=== PATIENT | male | born 1945 | race Caucasian/White ===

== ENCOUNTER 2017-06-26 10:08 | Inpatient (IN) | payer MEDICARE, MEDICAID ==
[2017-06-26] VITALS (10 sets, daily range): BP systolic 102–154; BP diastolic 51–70; PULSE 70–81; RESP 16–18; TEMP 97.7–98.2; O2SAT 78–100
[~2017-06-26] VITALS: Ht 170.2 cm; Wt 93.5 kg
[2017-06-26] MEDS ORDERED: ONDANSETRON HCL 4 MG/2 ML VIAL IVP ONE (11:00)
[2017-06-26] MEDS ORDERED: HYDROmorphone HCL PF 1 MG/ML VIAL IVS ONE (11:00)
[2017-06-26] MEDS ORDERED: SODIUM CHLORIDE 0.9% FLUSH 10 ML FLUSH IVF PRN (11:00)
--- NOTE | 2017-06-26 11:06 | PD ---
HPI Chief Complaint: Fall Time Seen by Provider: 10:29 Travel History International Travel<30 days: No Contact w/Intl Traveler<30days: No Traveled to known affect area: No History of Present Illness HPI The patient is a 71-year-old male who presents to the emergency department from [place], [place] for right hip pain. The patient states he was just discharged from [facility] yesterday after a 5 week hospitalization for leg pain. The patient was going down the stairs earlier today when he fell landing on his right hip. He complains of right hip pain with inability to ambulate. The pain starts in the right hip and radiates down the right leg to the right knee. He denies any loss of consciousness or head injury during the fall. He denies any neck pain, chest pain, or shortness of breath. The patient states his primary hospital at [facility], however, the patient states he apparently had no beds available for him. The patient states he has never been to [facility] in the past as the patient. He does not know all of his medications and does not have a medication list. Symptoms are moderate, slightly alleviated by 50 of fentanyl administered prior to arrival by EMS. [facility] Past Medical History Narrative Medical Hypertension, hyperlipidemia, atrial fibrillation, chronic leg pain Atrial Fibrillation: Yes Hypertension: Yes Past Surgical History Narrative Surgical Gastric bypass, cholecystectomy, AICD placement Abdominal Surgery: Yes (gastric bypass 1992) Appendectomy: Yes Cholecystectomy: Yes Social History Alcohol Use: No Tobacco Use: No Substance Use: No Allergies-Medications (Allergen,Severity, Reaction): Coded Allergies: morphine (Verified Allergy, Unknown, 06/26/17) Physical Exam Narrative GENERAL: Awake, alert, 71-year-old male who appears his stated age but is in no acute respiratory distress. SKIN: Focused skin assessment warm/dry. HEAD: Atraumatic. Normocephalic. EYES: No injection or drainage. ENT: No nasal bleeding or discharge. Mucous membranes pink and moist. NECK: Trachea midline. No JVD. CARDIOVASCULAR: Regular rate and rhythm. No murmur appreciated. AICD in place left chest wall. RESPIRATORY: No accessory muscle use. Clear to auscultation. Breath sounds equal bilaterally. GASTROINTESTINAL: Abdomen soft, obese with large pannus. Well-healed midline scar. MUSCULOSKELETAL: The right lower extremity is shortened and externally rotated. Tender to palpation of the right lateral hip. Mild edema bilaterally. Patient is able to move the right foot. NEUROLOGICAL: Awake and alert. No obvious cranial nerve deficits. Motor grossly within normal limits. Normal speech. Nonfocal. Sensation is intact right lower extremity. PSYCHIATRIC: Appropriate mood and affect; insight and judgment normal. Data Data Last Documented VS Vital Signs Date Time Temp Pulse Resp B/P (MAP) Pulse Ox O2 Delivery O2 Flow Rate FiO2 06/26/17 11:55 75 16 154/67 (96) 94 Nasal Cannula 2.00 06/26/17 10:38 97.7 Orders Orders Electrocardiogram (06/26/17 10:46) Complete Blood Count With Diff (06/26/17 10:46) Comprehensive Metabolic Panel (06/26/17 10:46) Prothrombin Time / Inr (Pt) (06/26/17 10:46) Act Partial Throm Time (Ptt) (06/26/17 10:46) Urinalysis - C+S If Indicated (06/26/17 10:46) Type And Screen (06/26/17 10:46) Chest, Single Ap (06/26/17 10:46) Femur (Ap & Lat/2vws) (06/26/17 10:46) Pelvis, Ap Only (Routine) (06/26/17 10:46) Iv Access Insert/Monitor (06/26/17 10:46) Oximetry (06/26/17 10:46) Ice/Cold Pack (06/26/17 10:46) Ecg Monitoring (06/26/17 10:46) Ondansetron Inj (Zofran Inj) (06/26/17 11:00) Sodium Chloride 0.9% Flush (Ns Flush) (06/26/17 11:00) Hydromorphone Pf Inj (Dilaudid Pf Inj) (06/26/17 11:00) Hydromorphone Pf Inj (Dilaudid Pf Inj) (06/26/17 11:45) Admit Order (Ed Use Only) (06/26/17 13:26) Labs Laboratory Tests Test 06/26/17 10:54 White Blood Count 10.7 TH/MM3 Red Blood Count 3.76 MIL/MM3 Hemoglobin 9.6 GM/DL Hematocrit 30.5 % Mean Corpuscular Volume 81.1 FL Mean Corpuscular Hemoglobin 25.6 PG Mean Corpuscular Hemoglobin Concent 31.5 % Red Cell Distribution Width 20.5 % Platelet Count 341 TH/MM3 Mean Platelet Volume 7.0 FL Neutrophils (%) (Auto) 91.4 % Lymphocytes (%) (Auto) 3.5 % Monocytes (%) (Auto) 4.4 % Eosinophils (%) (Auto) 0.1 % Basophils (%) (Auto) 0.6 % Neutrophils # (Auto) 9.8 TH/MM3 Lymphocytes # (Auto) 0.4 TH/MM3 Monocytes # (Auto) 0.5 TH/MM3 Eosinophils # (Auto) 0.0 TH/MM3 Basophils # (Auto) 0.1 TH/MM3 CBC Comment DIFF FINAL Differential Comment Prothrombin Time 15.5 SEC Prothromb Time International Ratio 1.5 RATIO Activated Partial Thromboplast Time 31.0 SEC Blood Urea Nitrogen 23 MG/DL Creatinine 0.76 MG/DL Random Glucose 65 MG/DL Total Protein 7.5 GM/DL Albumin 3.0 GM/DL Calcium Level 9.9 MG/DL Alkaline Phosphatase 132 U/L Aspartate Amino Transf (AST/SGOT) 60 U/L Alanine Aminotransferase (ALT/SGPT) 24 U/L Total Bilirubin 1.2 MG/DL Sodium Level 140 MEQ/L Potassium Level 4.3 MEQ/L Chloride Level 102 MEQ/L Carbon Dioxide Level 29.5 MEQ/L Anion Gap 9 MEQ/L Estimat Glomerular Filtration Rate 101 ML/MIN MDM Medical Decision Making Medical Screen Exam Complete: Yes Emergency Medical Condition: Yes Medical Record Reviewed: Yes Interpretation(s) EKG reveals electronic ventricular pacemaker with a rate of 78. No further analysis performed. Last Impressions Pelvis X-Ray 06/26/171045 Signed Impressions: Service Date/Time: June 11:12 - CONCLUSION: Acute oblique fracture the proximal femoral shaft on the right. Claudio Klein MD Femur X-Ray 06/26/171045 Signed Impressions: Service Date/Time: June 11:14 - CONCLUSION: Oblique fracture through the proximal right femoral shaft. Claudio Klein MD Chest X-Ray 06/26/171045 Signed Impressions: Service Date/Time: June 11:24 - CONCLUSION: 1. No significant pneumothorax or effusion. 2. Cardiomegaly with slight positive fluid balance. 3. Minimal atelectasis in the left midlung zone. 4. Suspect old inferior right rib fracture. Freddie Yuen MD Laboratory Tests Test 06/26/17 10:54 White Blood Count 10.7 TH/MM3 Red Blood Count 3.76 MIL/MM3 Hemoglobin 9.6 GM/DL Hematocrit 30.5 % Mean Corpuscular Volume 81.1 FL Mean Corpuscular Hemoglobin 25.6 PG Mean Corpuscular Hemoglobin Concent 31.5 % Red Cell Distribution Width 20.5 % Platelet Count 341 TH/MM3 Mean Platelet Volume 7.0 FL Neutrophils (%) (Auto) 91.4 % Lymphocytes (%) (Auto) 3.5 % Monocytes (%) (Auto) 4.4 % Eosinophils (%) (Auto) 0.1 % Basophils (%) (Auto) 0.6 % Neutrophils # (Auto) 9.8 TH/MM3 Lymphocytes # (Auto) 0.4 TH/MM3 Monocytes # (Auto) 0.5 TH/MM3 Eosinophils # (Auto) 0.0 TH/MM3 Basophils # (Auto) 0.1 TH/MM3 CBC Comment DIFF FINAL Differential Comment Prothrombin Time 15.5 SEC Prothromb Time International Ratio 1.5 RATIO Activated Partial Thromboplast Time 31.0 SEC Blood Urea Nitrogen 23 MG/DL Creatinine 0.76 MG/DL Random Glucose 65 MG/DL Total Protein 7.5 GM/DL Albumin 3.0 GM/DL Calcium Level 9.9 MG/DL Alkaline Phosphatase 132 U/L Aspartate Amino Transf (AST/SGOT) 60 U/L Alanine Aminotransferase (ALT/SGPT) 24 U/L Total Bilirubin 1.2 MG/DL Sodium Level 140 MEQ/L Potassium Level 4.3 MEQ/L Chloride Level 102 MEQ/L Carbon Dioxide Level 29.5 MEQ/L Anion Gap 9 MEQ/L Estimat Glomerular Filtration Rate 101 ML/MIN Differential Diagnosis Differential diagnosis includes intertrochanteric fracture, femoral neck fracture, pelvic fracture, femur fracture, dislocation, mechanical fall. Narrative Course IV was established, labs are drawn and sent, and the patient was placed on cardiac telemetry monitoring and continuous pulse oximetry monitoring.X-ray of the chest and pelvis with right femur x-ray were ordered. The patient was administered Dilaudid 0.5 mg intravenously with Zofran and IV fluids. X-ray of the right femur reveals a proximal right femur fracture. A call was placed to the on-call hospitalist service for admission. A call was placed to the on- call orthopedic surgeon at 12:52 PM. The patient will be admitted. The patient 's last meal was at 7 AM. The patient is unsure if he took his blood thinner medication, Eliquis, today. I discussed the patient with orthopedics who agrees with admission to medical service, n.p.o. after midnight. Hold Eliquis. Physician Communication Physician Communication [facility]ist were paged for admission. Diagnosis Primary Impression: Closed right femoral fracture Qualified Codes: S72.91XA - Unspecified fracture of right femur, initial encounter for closed fracture Admitting Information Admitting Physician Requests: Admit Condition: Stable Mesfin Saleh MD Jun 26, 2017 11:06
[2017-06-26] MEDS ORDERED: HYDROmorphone HCL PF 0.5 MG/0.5 ML SYRINGE IV ONE (11:45)
[2017-06-26 12:04] LABS: AUTOMATED NEUTROPHIL # 9.8 TH/MM3 (1.8-7.7); BASOPHIL # 0.1 TH/MM3 (0-0.2); BASOPHIL % 0.6 % (0.0-2.0); EOSINOPHIL % 0.1 % (0.0-4.0); HEMATOCRIT 30.5 % (39.0-51.0); HEMOGLOBIN 9.6 GM/DL (13.0-17.0); LYMPH % 3.5 % (9.0-44.0); LYMPHOCYTE # 0.4 TH/MM3 (1.0-4.8); MEAN CELL VOLUME 81.1 FL (80.0-100.0); MEAN CORPUSCULAR HEMOGLOBIN 25.6 PG (27.0-34.0); MEAN CORPUSCULAR HGB CONC 31.5 % (32.0-36.0); MONO % 4.4 % (0.0-8.0); MONOCYTE # 0.5 TH/MM3 (0-0.9); NEUT % 91.4 % (16.0-70.0); PLATELET COUNT 341 TH/MM3 (150-450); RED BLOOD COUNT 3.76 MIL/MM3 (4.50-5.90); RED CELL DISTRIBUTION WIDTH 20.5 % (11.6-17.2); WHITE BLOOD COUNT 10.7 TH/MM3 (4.0-11.0)
--- NOTE | 2017-06-26 12:09 | RADRPT ---
EXAM DATE/TIME: 06/26/2017 11:12 [facility] COMPARISON: FEMUR RIGHT (AP & LAT/2VWS), June 26, 2017, 11:14. FINDINGS: There is a fracture of the proximal right femur below the trochanters. There is degenerative change a t the hip joints bilaterally with loss of joint space and marginal osteophyte seen at the femoral hea ds. The patient is status post vertebroplasty at L4 and L5. Compression deformities are seen at these levels. The bones are osteopenic. CONCLUSION: Acute oblique fracture the proximal femoral shaft on the right. Claudio Klein MD on June 26, 2017 at 12:01 Board Certified Radiologist. This report was verified electronically.
--- NOTE | 2017-06-26 12:11 | RADRPT ---
EXAM DATE/TIME: 06/26/2017 11:14 [facility] COMPARISON: No previous studies available for comparison. INDICATIONS : Pt fell this morning. Right lower extremity pain. MEDICAL HISTORY : None. SURGICAL HISTORY : Gastric bypass. pacemaker ENCOUNTER: Initial ACUITY: 1 day PAIN SCORE: 9/10 LOCATION: Right lower extremity FINDINGS: Two view examination of the right femur demonstrates an oblique fracture the proximal femoral shaft. The superior aspect of the fractures at the intertrochanteric region. There is degenerative change of the joint with narrowing of the joint space. The knee joint is aligned. There is a mild knee joint e ffusion. Bones are osteopenic. CONCLUSION: Oblique fracture through the proximal right femoral shaft. Claudio Klein MD on June 26, 2017 at 12:08 Board Certified Radiologist. This report was verified electronically.
[2017-06-26 12:12] LABS: INTERNATIONAL NORMALIZED RATIO 1.5 RATIO; PROTHROMBIN TIME - PATIENT 15.5 SEC (9.8-11.6)
[2017-06-26 12:17] LABS: ALT (GPT) 24 U/L (12-78)
--- NOTE | 2017-06-26 12:17 | RADRPT ---
EXAM DATE/TIME: 06/26/2017 11:24 [facility] COMPARISON: No previous studies available for comparison. INDICATIONS : Pt fell this morning. Right lower extremity pain. MEDICAL HISTORY : None. SURGICAL HISTORY : Gastric bypass. Pacemaker ENCOUNTER: Initial ACUITY: 1 day PAIN SCORE: 9/10 LOCATION: Right lower extremity FINDINGS: One mild diffuse interstitial prominence mild linear parenchymal opacity in the left midlung zone. No pneumothorax or significant effusions. Cardiac silhouette is enlarged and there is a multi-lead AICD device in place. There is cortical irregularity of an inferior right-sided rib with apparent periost eal reaction. Otherwise, no displaced fractures. CONCLUSION: 1. No significant pneumothorax or effusion. 2. Cardiomegaly with slight positive fluid balance. 3. Minimal atelectasis in the left midlung zone. 4. Suspect old inferior right rib fracture. Freddie Yuen MD on June 26, 2017 at 12:06 Board Certified Radiologist. This report was verified electronically.
[2017-06-26 12:19] LABS: ALKALINE PHOSPHATASE 132 U/L (45-117); TOTAL BILIRUBIN ADULT 1.2 MG/DL (0.2-1.0); TOTAL PROTEIN 7.5 GM/DL (6.4-8.2)
[2017-06-26 12:39] LABS: BICARBONATE 29.5 MEQ/L (21.0-32.0); BLOOD UREA NITROGEN 23 MG/DL (7-18); CALCIUM 9.9 MG/DL (8.5-10.1); CHLORIDE 102 MEQ/L (98-107); CREATININE 0.76 MG/DL (0.60-1.30); GLOMERULAR FILTRATION RATE 101 ML/MIN (>89); GLUCOSE,RANDOM 65 MG/DL (74-106); SODIUM (NA) 140 MEQ/L (136-145)
[2017-06-26 12:40] LABS: AST (GOT) 60 U/L (15-37)
[2017-06-26] MEDS ORDERED: ACETAMINOPHEN 325 MG TAB PO PRN ×2 (14:30)
[2017-06-26] MEDS ORDERED: SENNOSIDES 8.6 MG TAB PO PRN (14:30)
[2017-06-26] MEDS ORDERED: ONDANSETRON HCL 4 MG/2 ML VIAL IVP PRN (14:30)
[2017-06-26] MEDS ORDERED: MAGNESIUM HYDROXIDE SUSP 30 ML CUP PO PRN (14:30)
[2017-06-26] MEDS ORDERED: BISACODYL 10 MG SUPP RECTAL PRN (14:30)
[2017-06-26] MEDS ORDERED: SODIUM CHLORIDE 0.9% FLUSH 10 ML FLUSH IV FLUSH PRN (14:30)
[2017-06-26] MEDS ORDERED: NALOXONE HCL 0.4 MG/ML AMP IV PUSH PRN (14:30)
[2017-06-26] MEDS ORDERED: cloNIDine HCL 0.1 MG TAB PO PRN ×2 (14:30)
[2017-06-26] MEDS ORDERED: DEXTROSE 50% IN WATER 50 ML VIAL(D50) IV PUSH PRN (14:30)
[2017-06-26] MEDS ORDERED: oxyCODONE/ACETAMINOPHEN 5 MG/325 MG TAB PO PRN (14:30)
[2017-06-26] MEDS ORDERED: GLUCAGON 1 MG/ML VIAL OTHER PRN (14:30)
[2017-06-26] MEDS ORDERED: LACTULOSE SYRUP 20 GM/30 ML CUP PO PRN (14:30)
[2017-06-26] MEDS ORDERED: oxyCODONE/ACETAMINOPHEN 10 MG/325 MG TAB PO PRN (14:30)
[2017-06-26] MEDS ORDERED: METOCLOPRAMIDE HCL 10 MG/2 ML VIAL IV PUSH PRN (14:30)
[2017-06-26] MEDS ORDERED: HYDROmorphone HCL PF 2 MG/ML VIAL IV PUSH PRN ×2 (14:45→15:00)
--- NOTE | 2017-06-26 14:45 | HHI.HP ---
[facility] Unknown Admission Diagnosis Proximal right femur fracture Diagnoses: (1) Hypertension Diagnosis: Secondary (2) H/O gastric bypass Diagnosis: Secondary (3) Hyperlipidemia Diagnosis: Secondary (4) Atrial fibrillation Diagnosis: Secondary (5) Closed right femoral fracture Diagnosis: Principal Chief Complaint: FALL Travel History International Travel<30 Days: No Contact w/Intl Traveler <30 Da: No Traveled to Known Affected Are: No History of Present Illness Patient is a 71-year-old male who was initially brought to the emergency department from [place] in [facility] for a right hip pain. Patient was noted to be discharged from possibly a rehab center in [facility] where he spent 5 weeks due to leg weakness. Patient was going down the stairs earlier today when he fell off the landing and landed on his right hip. Complains of right hip pain and inability to ambulate. Has pain in the right hip that goes down the right leg to the right knee patient denied any issue of loss of consciousness or head injury during the fall. Denies any neck pain he denies any chest pain or any shortness of breath denies any abdominal pain patient states that he goes to [facility] but has not been there in a while. Patient states she has never been a [facility] ever patient does not know any of his medications does not have a medication list has some pain. Had been medicated by EMS prior to arrival She is a very poor historian Review of Systems ROS Limitations: Altered Mental Status, Poor Historian Constitutional: COMPLAINS OF: Fatigue, DENIES: Diaphoretic episodes, Fever, Weight gain, Weight loss, Chills, Dizziness, Change in appetite, Night Sweats Endocrine: DENIES: Heat/cold intolerance, Polydipsia, Polyuria, Polyphagia Eyes: DENIES: Blurred vision, Diplopia, Eye inflammation, Eye pain, Vision loss , Photosensitivity, Double Vision Ears, nose, mouth, throat: DENIES: Tinnitus, Hearing loss, Vertigo, Nasal discharge, Oral lesions, Throat pain, Hoarseness, Ear Pain, Running Nose, Epistaxis, Sinus Pain, Toothache, Odynophagia Respiratory: DENIES: Apneas, Cough, Snoring, Wheezing, Hemoptysis, Sputum production, Shortness of breath Cardiovascular: DENIES: Chest pain, Palpitations, Syncope, Dyspnea on Exertion , PND, Lower Extremity Edema, Orthopnea, Claudication Gastrointestinal: DENIES: Abdominal pain, Black stools, Bloody stools, Constipation, Diarrhea, Nausea, Vomiting, Difficulty Swallowing, Anorexia Musculoskeletal: COMPLAINS OF: Joint pain, Muscle aches, Joint Swelling, DENIES : Stiffness, Back pain, Neck pain Integumentary: DENIES: Abnormal pigmentation, Nail changes, Pruritus, Rash Hematologic/lymphatic: DENIES: Bruising, Lymphadenopathy Immunologic/allergic: DENIES: Urticaria Neurologic: COMPLAINS OF: Abnormal gait, Localized weakness, DENIES: Headache, Paresthesias, Seizures, Speech Problems, Tremor Psychiatric: COMPLAINS OF: Confusion, DENIES: Anxiety, Mood changes, Depression , Hallucinations, Agitation, Suicidal Ideation, Homicidal Ideation, Delusions Except as stated in HPI: all other systems reviewed are Neg Past Family Social History Past Medical History Hypertension Hyperlipidemia Atrial fibrillation Chronic leg pain and weakness Past Surgical History Gastric bypass surgery Cholecystectomy Appendectomy AICD placement Reported Medications Unknown unobtainable from patient Allergies: Coded Allergies: morphine (Verified Allergy, Unknown, 06/26/17) Active Ordered Medications Current Medications Ondansetron HCl (Zofran Inj) 4 mg ONCE ONCE IVP Last administered on at 11:53; Start 06/26/17 at 11:00; Stop 06/26/17 at 11:01; Status DC Sodium Chloride (NS Flush) 2 ml UNSCH PRN IVF FLUSH AFTER USING IV ACCESS; Start 06/26/17 at 11:00 Hydromorphone HCl (Dilaudid Pf Inj) 0.5 mg ONCE ONCE IVS ; Start 06/26/17 at 11 :00; Stop 06/26/17 at 11:01; Status DC Hydromorphone HCl (Dilaudid Pf Inj) 0.5 mg ONCE ONCE IV Last administered on at 11:54; Start 06/26/17 at 11:45; Stop 06/26/17 at 11:46; Status DC Family History Does not know any of his family history Social History Denies any tobacco, alcohol, or illicits Physical Exam Vital Signs Vital Signs Date Time Temp Pulse Resp B/P (MAP) Pulse Ox O2 Delivery O2 Flow Rate FiO2 06/26/17 14:21 16 99 Non-Rebreather 11.00 06/26/17 14:20 73 16 78 Nasal Cannula 4.00 06/26/17 14:00 70 16 116/58 (77) 95 Nasal Cannula 4.00 06/26/17 11:55 75 16 154/67 (96) 94 Nasal Cannula 2.00 06/26/17 10:40 73 17 97 Nasal Cannula 2.00 06/26/17 10:38 97.7 81 16 150/70 (96) 97 Physical Exam GENERAL: This is a well-nourished, well-developed patient, in no apparent distress. SKIN: No rashes, ecchymoses or lesions. Cool and dry. Has some small wounds on his right hand HEAD: Atraumatic. Normocephalic. No temporal or scalp tenderness. EYES: Pupils equal round and reactive. Extraocular motions intact. No scleral icterus. No injection or drainage. ENT: Nose without bleeding, purulent drainage or septal hematoma. Throat without erythema, tonsillar hypertrophy or exudate. Uvula midline. Airway patent. NECK: Trachea midline. No JVD or lymphadenopathy. Supple, nontender, no meningeal signs. CARDIOVASCULAR: IRRegular rate and rhythm without murmurs, gallops, or rubs. S1 -S2 no S3 or S4 RESPIRATORY: Clear to auscultation. Breath sounds equal bilaterally. No wheezes , rales, or rhonchi. Coarse breath sounds bilaterally GASTROINTESTINAL: Abdomen soft, non-tender, nondistended. No hepato-splenomegaly , or palpable masses. No guarding. Morbid obesity MUSCULOSKELETAL: Extremities without clubbing, cyanosis, or edema. No joint tenderness, effusion, or edema noted. No calf tenderness. Negative Homans sign bilaterally. Right hip tenderness NEUROLOGICAL: Awake and alert. Cranial nerves II through XII intact. Motor and sensory grossly within normal limits. 4 out of 5 muscle strength in all muscle groups. Normal speech. Right hip tenderness with decreased range of motion Insight and judgment is limited Mood and behavior is abnormal Laboratory Laboratory Tests Test 06/26/17 10:54 White Blood Count 10.7 Red Blood Count 3.76 Hemoglobin 9.6 Hematocrit 30.5 Mean Corpuscular Volume 81.1 Mean Corpuscular Hemoglobin 25.6 Mean Corpuscular Hemoglobin Concent 31.5 Red Cell Distribution Width 20.5 Platelet Count 341 Mean Platelet Volume 7.0 Neutrophils (%) (Auto) 91.4 Lymphocytes (%) (Auto) 3.5 Monocytes (%) (Auto) 4.4 Eosinophils (%) (Auto) 0.1 Basophils (%) (Auto) 0.6 Neutrophils # (Auto) 9.8 Lymphocytes # (Auto) 0.4 Monocytes # (Auto) 0.5 Eosinophils # (Auto) 0.0 Basophils # (Auto) 0.1 CBC Comment DIFF FINAL Differential Comment Prothrombin Time 15.5 Prothromb Time International Ratio 1.5 Activated Partial Thromboplast Time 31.0 Blood Urea Nitrogen 23 Creatinine 0.76 Random Glucose 65 Total Protein 7.5 Albumin 3.0 Calcium Level 9.9 Alkaline Phosphatase 132 Aspartate Amino Transf (AST/SGOT) 60 Alanine Aminotransferase (ALT/SGPT) 24 Total Bilirubin 1.2 Sodium Level 140 Potassium Level 4.3 Chloride Level 102 Carbon Dioxide Level 29.5 Anion Gap 9 Estimat Glomerular Filtration Rate 101 Result Diagram: 06/26/17 1054 06/26/17 1054 Imaging Last Impressions Pelvis X-Ray 06/26/17 1046 Signed Impressions: Service Date/Time: June 11:12 - CONCLUSION: Acute oblique fracture the proximal femoral shaft on the right. Claudio Klein MD Femur X-Ray 06/26/17 1046 Signed Impressions: Service Date/Time: June 11:14 - CONCLUSION: Oblique fracture through the proximal right femoral shaft. Claudio Klein MD Chest X-Ray 06/26/17 1046 Signed Impressions: Service Date/Time: June 11:24 - CONCLUSION: 1. No significant pneumothorax or effusion. 2. Cardiomegaly with slight positive fluid balance. 3. Minimal atelectasis in the left midlung zone. 4. Suspect old inferior right rib fracture. MD Girma Leei VTE Risk Assessment Caprini VTE Risk Assessment: Mod/High Risk (score >= 2) Caprini Risk Assessment Model Point Value = 1 Point Value = 2 Point Value = 3 Point Value = 5 Age 41-60 Minor surgery BMI > 25 kg/m2 Swollen legs Varicose veins or History of unexplained or recurrent spontaneous Oral contraceptives or hormone replacement Sepsis (< 1 month) Serious lung disease, including pneumonia (< 1 month) Abnormal pulmonary function Acute myocardial infarction Congestive heart failure (< 1 month) History of inflammatory bowel disease Medical patient at bed rest Age 61-74 Arthroscopic surgery Major open surgery (> 45 min) Laparoscopic surgery (> 45 min) Malignancy Confined to bed (> 72 hours) Immobilizing plaster cast Central venous access Age >= 75 History of VTE Family history of VTE Factor V Leiden Prothrombin [id number] Lupus anticoagulant Anticardiolipin antibodies Elevated serum homocysteine Heparin-induced thrombocytopenia Other congenital or acquired thrombophilia Stroke (< 1 month) Elective arthroplasty Hip, pelvis, or leg fracture Acute spinal cord injury (< 1 month) Prophylaxis Regimen Total Risk Factor Score Risk Level Prophylaxis Regimen 0-1 Low Early ambulation 2 Moderate Order ONE of the following: *Sequential Compression Device (SCD) *Heparin 5000 units SQ BID 3-4 Higher Order ONE of the following medications: *Heparin 5000 units SQ TID *Enoxaparin/Lovenox 40 mg SQ daily (WT < 150 kg, CrCl > 30 mL/min) *Enoxaparin/Lovenox 30 mg SQ daily (WT < 150 kg, CrCl > 10-29 mL/min) *Enoxaparin/Lovenox 30 mg SQ BID (WT < 150 kg, CrCl > 30 mL/min) AND/OR *Sequential Compression Device (SCD) 5 or more Highest Order ONE of the following medications: *Heparin 5000 units SQ TID (Preferred with Epidurals) *Enoxaparin/Lovenox 40 mg SQ daily (WT < 150 kg, CrCl > 30 mL/min) *Enoxaparin/Lovenox 30 mg SQ daily (WT < 150 kg, CrCl > 10-29 mL/min) *Enoxaparin/Lovenox 30 mg SQ BID (WT < 150 kg, CrCl > 30 mL/min) AND *Sequential Compression Device (SCD) Assessment and Plan Problem List: (1) H/O gastric bypass ICD Code: Z98.84 - Bariatric surgery status (2) Hypertension ICD Code: I10 - Essential (primary) hypertension (3) Atrial fibrillation ICD Code: I48.91 - Unspecified atrial fibrillation (4) Closed right femoral fracture ICD Code: S72.91XA - Unspecified fracture of right femur, initial encounter for closed fracture Status: Acute (5) Hyperlipidemia ICD Code: E78.5 - Hyperlipidemia, unspecified Assessment and Plan Right hip fracture. Will consult orthopedic surgery. We will keep him n.p.o. after midnight. Will obviously stop any care home novel anticoagulation Pain control SCDs and ALFA hose We will need physical therapy and Occupational Therapy once surgery is complete Hypertension does not know his medication will make Catapres available Hyperlipidemia does not know his medications will try to obtain History of osteoarthritis and weakness will need physical therapy and occupational therapy after surgery Atrial fibrillation will get an echo and trend troponins Chronic leg pain History of gastric bypass and cholecystectomy and AICD placement DVT prophylaxis with SCDs and ALFA hose GI prophylaxis with Pepcid We will get an echo cardiogram and trend troponins Anemia we will monitor labs Coagulopathy will monitor A.m. labs Consult case management for discharge planning Code Status Full code Discussed Condition With Emergency room physician and emergency room nurse and patient Patient is a very poor historian Physician Certification 2 Midnight Certification Type: Admission for Inpatient Services Order for Inpatient Services The services are ordered in accordance with Medicare regulations or non- Medicare payer requirements, as applicable. In the case of services not specified as inpatient-only, they are appropriately provided as inpatient services in accordance with the 2-midnight benchmark. Estimated LOS (days): 3 days is the estimated time the patient will need to remain in the hospital, assuming treatment plan goals are met and no additional complications. Post-Hospital Plan: Not yet determined Problem Qualifiers (1) Closed right femoral fracture: Qualified Codes: S72.91XA - Unspecified fracture of right femur, initial encounter for closed fracture Michele Gilliam DO Jun 26, 2017 14:45
[2017-06-26 16:30] LABS: TROPONIN I 0.09 NG/ML (0.02-0.05)
[2017-06-26] MEDS: INSULIN ASPART SUPPLEMENTAL SCALE SQ SCH ×2 (16:42→21:00)
[2017-06-26] MEDS: PANTOPRAZOLE SODIUM 40 MG VIAL IV PUSH SCH (18:03)
[2017-06-26] MEDS: DOCUSATE SODIUM 50 MG/SENNA 8.6 MG TAB PO SCH (21:00)
[2017-06-26] MEDS: SODIUM CHLORIDE 0.9% FLUSH 10 ML FLUSH IV FLUSH SCH (21:00)
[2017-06-26 22:24] LABS: TROPONIN I 0.14 NG/ML (0.02-0.05)
[2017-06-27] VITALS (13 sets, daily range): BP systolic 96–113; BP diastolic 50–71; PULSE 70–76; RESP 16–19; TEMP 97.4–98.4; O2SAT 93–100
[2017-06-27] MEDS ORDERED: CHLORHEXIDINE GLUCONATE 2 % 1 PACK (2 CLOTHS)(extra cloths) TOPICAL PRN (00:15)
[2017-06-27] MEDS: CHLORHEXIDINE GLUCONATE 2 % 1 PACK (2 CLOTHS)(taper/protocol) TOPICAL SCH (00:23)
[2017-06-27] MEDS: DOCUSATE SODIUM 50 MG/SENNA 8.6 MG TAB PO SCH ×2 (09:00→22:09)
[2017-06-27 09:01] LABS: INTERNATIONAL NORMALIZED RATIO 1.5 RATIO; PROTHROMBIN TIME - PATIENT 14.9 SEC (9.8-11.6)
--- NOTE | 2017-06-27 09:14 | PD.CONS ---
HPI Consult Requested By Primary Care Physician Unknown History of Present Illness 71-year-old male with a past medical history of cardiomyopathy status post AICD , atrial fibrillation status post pacemaker on anticoagulation who presented after a fall and found to have right femur fracture. Orthopedics is hoping to do a femur fracture repair today and we have been consulted for preoperative evaluation. The patient is followed by cardiology at the [facility] in [place]. He is not sure what his past ejection fraction is, but does note that he has a defibrillator and a pacemaker. AICD was checked last night per report and was unremarkable. The patient denies ever having any heart attack, stent placement , or bypass surgery and does not have any chest pain. He is on anticoagulation for atrial fibrillation. He states that until his legs felt weak and he fell yesterday he was in his normal state of health. He states he tries to be active at home, but does not believe he can generate 2 mets at baseline. He has lower extremity edema at baseline, denies any recent worsening. Has baseline 2 pillow orthopnea, denies any acute worsening recently. He did have some difficulty breathing last night the required BiPAP, but he reports this is because he has difficulty breathing out of his nose. A chest x-ray was done which showed slight positive fluid balance. Telemetry with paced rhythm. Patient understands that with his heart disease he would be at increased risk for any procedure. (Mele Osorio) Review of Systems Negative except as stated in HPI (Mele Osorio) Past Family Social History Allergies: Coded Allergies: No Known Allergies (Unverified , 06/26/17) Past Medical History Hypertension Hyperlipidemia Atrial fibrillation on anticoagulation Cardiomyopathy status post AICD Past Surgical History Gastric bypass surgery Cholecystectomy Appendectomy AICD/pacemaker placement Active Ordered Medications Current Medications Medications (Trade) Dose Ordered Sig/Jesi Route Start Time Stop Time Status Last Admin (D50w (Vial) Inj) 50 ml UNSCH PRN IV PUSH 06/26/17 14:30 06/27/17 02:38 (Glucagon Inj) 1 mg UNSCH PRN OTHER 06/26/17 14:30 (NovoLOG SUPPLEMENTAL SCALE) 1 ACHS SLIDING SCALE SQ 06/26/17 17:00 (Catapres) 0.1 mg Q4H PRN PO 06/26/17 14:30 (NS Flush) 2 ml UNSCH PRN IV FLUSH 06/26/17 14:30 (NS Flush) 2 ml BID IV FLUSH 06/26/17 21:00 06/26/17 21:00 (Tylenol) 650 mg Q4H PRN PO 06/26/17 14:30 (Zofran Inj) 4 mg Q6H PRN IVP 06/26/17 14:30 (Reglan Inj) 5 mg Q6H PRN IV PUSH 06/26/17 14:30 (Tylenol) 650 mg Q6H PRN PO 06/26/17 14:30 (Percocet 5-325 Mg) 1 tab Q6H PRN PO 06/26/17 14:30 (Percocet 10-325 Mg) 1 tab Q6H PRN PO 06/26/17 14:30 06/26/17 18:03 (Dilaudid Pf Inj) 0.5 mg Q3H PRN IV PUSH 06/26/17 14:45 (Dilaudid Pf Inj) 1 mg Q3H PRN IV PUSH 06/26/17 14:45 (Dilaudid Pf Inj) 1 mg Q3H PRN IV PUSH 06/26/17 15:00 (Narcan Inj) 0.4 mg UNSCH PRN IV PUSH 06/26/17 14:30 (Francie-Colace) 1 tab BID PO 06/26/17 21:00 (Milk Of Magnesia Liq) 30 ml Q12H PRN PO 06/26/17 14:30 (Senokot) 17.2 mg Q12H PRN PO 06/26/17 14:30 (Dulcolax Supp) 10 mg DAILY PRN RECTAL 06/26/17 14:30 (Lactulose Liq) 30 ml DAILY PRN PO 06/26/17 14:30 (Protonix Inj) 40 mg Q24H IV PUSH 06/26/17 16:00 06/26/17 18:03 Miscellaneous Information Patient in critical care unit? Ass... Q361D .XX 06/27/17 00:15 06/27/17 00:15 (Chlorhexidine 2% Cloth) 3 pack DAILY@04 TOPICAL 06/27/17 04:00 07/01/17 04:01 06/27/17 00:23 (Chlorhexidine 2% Cloth) 3 pack UNSCH PRN TOPICAL 06/27/17 00:15 07/02/17 00:06 Family History Unknown Social History Denies any tobacco, alcohol, or illicits (Mele Osorio) Physical Exam Vital Signs Vital Signs Date Time Temp Pulse Resp B/P (MAP) Pulse Ox O2 Delivery O2 Flow Rate FiO2 06/27/17 04:09 95 50 06/27/17 04:00 93 Bi-Pap 50 06/27/17 04:00 97.8 73 17 107/57 (74) 93 06/27/17 00:04 95 50 06/27/17 00:00 Bi-Pap 50 06/27/17 00:00 98.2 70 17 96/51 (66) 93 06/27/17 00:00 98.3 70 18 104/66 (79) 95 06/26/17 21:55 77 06/26/17 20:28 90 Venturi Mask 35 06/26/17 20:00 98.2 75 18 102/51 (68) 93 06/26/17 16:00 97.8 70 16 119/58 (78) 93 06/26/17 15:35 06/26/17 15:00 100 Partial Rebreather 06/26/17 14:21 16 99 Non-Rebreather 11.00 06/26/17 14:20 73 16 78 Nasal Cannula 4.00 06/26/17 14:00 70 16 116/58 (77) 95 Nasal Cannula 4.00 06/26/17 11:55 75 16 154/67 (96) 94 Nasal Cannula 2.00 06/26/17 10:40 73 17 97 Nasal Cannula 2.00 06/26/17 10:38 97.7 81 16 150/70 (96) 97 Physical Exam GENERAL: Well-developed well-nourished. In no acute distress. NECK: No carotid bruits. No JVD. CARDIOVASCULAR: Regular rate and rhythm. No murmur appreciated. RESPIRATORY: No accessory muscle use. Clear to auscultation. Breath sounds equal bilaterally. MUSCULOSKELETAL: Right lower extremity shortened and externally rotated. 1+ nonpitting edema on the left and 2+ on the right. NEUROLOGICAL: Awake and alert. Normal speech. Laboratory Laboratory Tests Test 06/26/17 10:54 06/26/17 21:42 06/26/17 22:02 06/27/17 00:00 White Blood Count 10.7 Red Blood Count 3.76 Hemoglobin 9.6 Hematocrit 30.5 Mean Corpuscular Volume 81.1 Mean Corpuscular Hemoglobin 25.6 Mean Corpuscular Hemoglobin Concent 31.5 Red Cell Distribution Width 20.5 Platelet Count 341 Mean Platelet Volume 7.0 Neutrophils (%) (Auto) 91.4 Lymphocytes (%) (Auto) 3.5 Monocytes (%) (Auto) 4.4 Eosinophils (%) (Auto) 0.1 Basophils (%) (Auto) 0.6 Neutrophils # (Auto) 9.8 Lymphocytes # (Auto) 0.4 Monocytes # (Auto) 0.5 Eosinophils # (Auto) 0.0 Basophils # (Auto) 0.1 CBC Comment DIFF FINAL Differential Comment Prothrombin Time 15.5 Prothromb Time International Ratio 1.5 Activated Partial Thromboplast Time 31.0 Blood Urea Nitrogen 23 Creatinine 0.76 Random Glucose 65 Total Protein 7.5 Albumin 3.0 Calcium Level 9.9 Alkaline Phosphatase 132 Aspartate Amino Transf (AST/SGOT) 60 Alanine Aminotransferase (ALT/SGPT) 24 Total Bilirubin 1.2 Sodium Level 140 Potassium Level 4.3 Chloride Level 102 Carbon Dioxide Level 29.5 Anion Gap 9 Estimat Glomerular Filtration Rate 101 Total Creatine Kinase 305 225 Troponin I 0.09 0.14 Blood Gas Puncture Site LT RADIAL Blood Gas Patient Temperature 98.6 Blood Gas HCO3 29 Blood Gas Base Excess 2.1 Blood Gas Oxygen Saturation 91 Arterial Blood pH 7.23 Arterial Blood Partial Pressure CO2 72 Arterial Blood Partial Pressure O2 80 Arterial Blood Oxygen Content 10.7 Arterial Blood Carboxyhemoglobin 1.6 Arterial Blood Methemoglobin 1.1 Blood Gas Hemoglobin 8.3 Oxygen Delivery Device VENTI MASK Blood Gas Inspired Oxygen 35 Nasal Screen MRSA (PCR) MRSA NOT DETECTED Test 06/27/17 01:15 06/27/17 03:51 06/27/17 08:35 Blood Gas Puncture Site LT RADIAL Blood Gas Patient Temperature 98.6 Blood Gas HCO3 30 Blood Gas Base Excess 3.4 Blood Gas Oxygen Saturation 96 Arterial Blood pH 7.29 Arterial Blood Partial Pressure CO2 63 Arterial Blood Partial Pressure O2 169 Arterial Blood Oxygen Content 11.3 Arterial Blood Carboxyhemoglobin 1.3 Arterial Blood Methemoglobin 1.5 Blood Gas Hemoglobin 8.1 Oxygen Delivery Device BIPAP Blood Gas Ventilator Setting EPAP 5,IPAP 10 Blood Gas Inspired Oxygen 50 Troponin I 0.14 Prothrombin Time 14.9 Prothromb Time International Ratio 1.5 (Long,Mele D. PA) Result Diagram: 06/26/17 1054 06/26/17 1054 Imaging Last Impressions Pelvis X-Ray 06/26/17 1046 Signed Impressions: Service Date/Time: June 11:12 - CONCLUSION: Acute oblique fracture the proximal femoral shaft on the right. Claudio Klein MD Femur X-Ray 06/26/17 1046 Signed Impressions: Service Date/Time: June 11:14 - CONCLUSION: Oblique fracture through the proximal right femoral shaft. Claudio Klein MD Chest X-Ray 06/26/17 1046 Signed Impressions: Service Date/Time: June 11:24 - CONCLUSION: 1. No significant pneumothorax or effusion. 2. Cardiomegaly with slight positive fluid balance. 3. Minimal atelectasis in the left midlung zone. 4. Suspect old inferior right rib fracture. Freddie Yuen MD (Mele Osorio) Assessment and Plan Assessment and Plan 71-year-old male with a past medical history of cardiomyopathy status post AICD , atrial fibrillation status post pacemaker on anticoagulation who presented after a fall and found to have right femur fracture. Orthopedics is hoping to do a femur fracture repair today and we have been consulted for preoperative evaluation. Cardiomyopathy: Sounds nonischemic. Unknown EF, AICD in place. Will give a dose of Lasix with slight fluid overload seen on chest x-ray. Atrial fibrillation: Pacemaker in place and patient in ventricular paced rhythm. Anticoagulation on hold with possible upcoming procedure. Femur fracture: Patient seems better compensated today from a CHF standpoint today. At this point seems to be acceptable Cardiovascular risk to proceed with fracture repair with orthopedics. Recommend close monitoring of perioperative volume status. Discussed Condition With Patient, RNDr. Murillo (Mele Osorio) Assessment and Plan ] NICM clear for surgery from cardio perspective with intermediate risk avoid aggressive IV hydration avoid cauterization in close proximity to AICD (should be issue with femur fracture), but if necessary, magnet on AICD will disable firing of device due to artifact that ca be seen from cauterization by the device. will sign off call with questions (Mikel Murillo MD) Mele Osorio Jun 27, 2017 09:14 Mikel Murillo MD Jun 27, 2017 10:50
[2017-06-27 09:21] LABS: ALBUMIN 2.5 GM/DL (3.4-5.0); AST (GOT) 33 U/L (15-37); BICARBONATE 32.5 MEQ/L (21.0-32.0); BLOOD UREA NITROGEN 22 MG/DL (7-18); CALCIUM 9.5 MG/DL (8.5-10.1); CHLORIDE 105 MEQ/L (98-107); CREATININE 0.71 MG/DL (0.60-1.30); GLOMERULAR FILTRATION RATE 109 ML/MIN (>89); GLUCOSE,RANDOM 77 MG/DL (74-106); MAGNESIUM 2.3 MG/DL (1.5-2.5); SODIUM (NA) 142 MEQ/L (136-145)
[2017-06-27 09:22] LABS: ALT (GPT) 18 U/L (12-78)
[2017-06-27 09:30] LABS: ALKALINE PHOSPHATASE 100 U/L (45-117); FREE T4 1.29 NG/DL (0.76-1.46); PHOSPHORUS 2.9 MG/DL (2.5-4.9); TOTAL BILIRUBIN ADULT 0.9 MG/DL (0.2-1.0); TOTAL PROTEIN 6.2 GM/DL (6.4-8.2)
[2017-06-27 09:52] LABS: AUTOMATED NEUTROPHIL # 3.8 TH/MM3 (1.8-7.7); BASOPHIL % 0.6 % (0.0-2.0); EOSINOPHIL # 0.1 TH/MM3 (0-0.4); EOSINOPHIL % 1.5 % (0.0-4.0); HEMATOCRIT 25.9 % (39.0-51.0); HEMOGLOBIN 8.4 GM/DL (13.0-17.0); LYMPHOCYTE # 0.5 TH/MM3 (1.0-4.8); MEAN CELL VOLUME 82.8 FL (80.0-100.0); MEAN CORPUSCULAR HEMOGLOBIN 26.9 PG (27.0-34.0); MEAN CORPUSCULAR HGB CONC 32.5 % (32.0-36.0); MEAN PLATELET VOLUME 7.2 FL (7.0-11.0); MONO % 9.1 % (0.0-8.0); MONOCYTE # 0.4 TH/MM3 (0-0.9); NEUT % 78.8 % (16.0-70.0); PLATELET COUNT 251 TH/MM3 (150-450); RED BLOOD COUNT 3.12 MIL/MM3 (4.50-5.90); RED CELL DISTRIBUTION WIDTH 20.7 % (11.6-17.2); WHITE BLOOD COUNT 4.8 TH/MM3 (4.0-11.0)
[2017-06-27] MEDS ORDERED: FUROSEMIDE 20 MG/2 ML VIAL IV PUSH ONE (10:00)
--- NOTE | 2017-06-27 10:40 | PD.ORT.PN ---
Subjective Subjective Remarks s/p fall at home. right leg pain. Objective Vitals Vital Signs Date Time Temp Pulse Resp B/P (MAP) Pulse Ox O2 Delivery O2 Flow Rate FiO2 06/27/17 10:00 98 Nasal Cannula 2.00 06/27/17 08:00 98.1 72 18 108/51 (70) 98 06/27/17 07:35 100 Nasal Cannula 2.00 06/27/17 07:30 98 Nasal Cannula 2.00 06/27/17 07:15 Bi-Pap 50 06/27/17 04:09 95 50 06/27/17 04:00 93 Bi-Pap 50 06/27/17 04:00 97.8 73 17 107/57 (74) 93 06/27/17 00:04 95 50 06/27/17 00:00 Bi-Pap 50 06/27/17 00:00 98.2 70 17 96/51 (66) 93 06/27/17 00:00 98.3 70 18 104/66 (79) 95 06/26/17 21:55 77 06/26/17 20:28 90 Venturi Mask 35 06/26/17 20:00 98.2 75 18 102/51 (68) 93 06/26/17 16:00 97.8 70 16 119/58 (78) 93 06/26/17 15:35 06/26/17 15:00 100 Partial Rebreather 06/26/17 14:21 16 99 Non-Rebreather 11.00 06/26/17 14:20 73 16 78 Nasal Cannula 4.00 06/26/17 14:00 70 16 116/58 (77) 95 Nasal Cannula 4.00 06/26/17 11:55 75 16 154/67 (96) 94 Nasal Cannula 2.00 06/26/17 10:40 73 17 97 Nasal Cannula 2.00 I/O 06/26/17 06/26/17 06/26/17 06/27/17 06/27/17 06/27/17 07:00 15:00 23:00 07:00 15:00 23:00 Output Total 500 ml Balance -500 ml Output Urine Total 500 ml Result Diagram: 06/27/17 0835 06/27/17 0835 Other Results Laboratory Tests Test 06/26/17 10:54 06/27/17 08:35 Prothromb Time International Ratio 1.5 RATIO 1.5 RATIO Prothrombin Time 15.5 SEC (9.8-11.6) 14.9 SEC (9.8-11.6) Imaging Last 24 hours Impressions Pelvis X-Ray 06/26/17 1046 Signed Impressions: Service Date/Time: June 11:12 - CONCLUSION: Acute oblique fracture the proximal femoral shaft on the right. Claudio Klein MD Femur X-Ray 06/26/17 1046 Signed Impressions: Service Date/Time: June 11:14 - CONCLUSION: Oblique fracture through the proximal right femoral shaft. Claudio Klein MD Chest X-Ray 06/26/17 1046 Signed Impressions: Service Date/Time: June 11:24 - CONCLUSION: 1. No significant pneumothorax or effusion. 2. Cardiomegaly with slight positive fluid balance. 3. Minimal atelectasis in the left midlung zone. 4. Suspect old inferior right rib fracture. Freddie Yuen MD Objective Remarks RLE: leg externally rotated. nvi distally with good motion of ankle and toes. full sensation. Assessment & Plan Assessment and Plan 1) Right Subtrochanteric Femur Fx -patient has many co-morbidities and is not cleared for surgery today -he can resume diet and be NPO after MN -hold lovenox -Dr Sanchez will be taking patient to surgery tomorrow for fixation of right femur pending medical clearance -consents are written out and on chart. patient needs to sign -NWB -official consult to follow by Zhao Carmichael/Audograph Operator YOLIE Jun 27, 2017 10:40
--- NOTE | 2017-06-27 11:07 | HHI.PR ---
Subjective Remarks Pt tells me that his breathing is much improved. currently he has pain 6/10. Usually takes tramadol for his pain and oxycodone makes him drowsy but is agreeable to taking something stronger because of the pain now. denies any chest pains, nausea or vomiting Discussed w RN, pt cleared by cards for OR however pt will go tomorrow Objective Vitals Vital Signs Date Time Temp Pulse Resp B/P (MAP) Pulse Ox O2 Delivery O2 Flow Rate FiO2 06/27/17 10:00 98 Nasal Cannula 2.00 06/27/17 08:00 98.1 72 18 108/51 (70) 98 06/27/17 07:35 100 Nasal Cannula 2.00 06/27/17 07:30 98 Nasal Cannula 2.00 06/27/17 07:15 Bi-Pap 50 06/27/17 04:09 95 50 06/27/17 04:00 93 Bi-Pap 50 06/27/17 04:00 97.8 73 17 107/57 (74) 93 06/27/17 00:04 95 50 06/27/17 00:00 Bi-Pap 50 06/27/17 00:00 98.2 70 17 96/51 (66) 93 06/27/17 00:00 98.3 70 18 104/66 (79) 95 06/26/17 21:55 77 06/26/17 20:28 90 Venturi Mask 35 06/26/17 20:00 98.2 75 18 102/51 (68) 93 06/26/17 16:00 97.8 70 16 119/58 (78) 93 06/26/17 15:35 06/26/17 15:00 100 Partial Rebreather 06/26/17 14:21 16 99 Non-Rebreather 11.00 06/26/17 14:20 73 16 78 Nasal Cannula 4.00 06/26/17 14:00 70 16 116/58 (77) 95 Nasal Cannula 4.00 06/26/17 11:55 75 16 154/67 (96) 94 Nasal Cannula 2.00 I/O 06/26/17 06/26/17 06/26/17 06/27/17 06/27/17 06/27/17 07:00 15:00 23:00 07:00 15:00 23:00 Output Total 500 ml Balance -500 ml Output Urine Total 500 ml Result Diagram: 06/27/17 0835 06/27/17 0835 Imaging Last Impressions Pelvis X-Ray 06/26/17 1046 Signed Impressions: Service Date/Time: June 11:12 - CONCLUSION: Acute oblique fracture the proximal femoral shaft on the right. Claudio Klein MD Femur X-Ray 06/26/17 1046 Signed Impressions: Service Date/Time: June 11:14 - CONCLUSION: Oblique fracture through the proximal right femoral shaft. Claudio Klein MD Chest X-Ray 06/26/171045 Signed Impressions: Service Date/Time: June 11:24 - CONCLUSION: 1. No significant pneumothorax or effusion. 2. Cardiomegaly with slight positive fluid balance. 3. Minimal atelectasis in the left midlung zone. 4. Suspect old inferior right rib fracture. Freddie Yuen MD Objective Remarks GENERAL: laying in bed, NC in place CARDIOVASCULAR: appears regular, no murmurs. RESPIRATORY: Clear to auscultation. Breath sounds equal bilaterally. No wheezes GASTROINTESTINAL: Abdomen soft, non-tender, nondistended. MUSCULOSKELETAL: Extremities with trace to 1+ edema bilaterally . Right lower extremity, externally rotated. NEUROLOGICAL: Awake and alert. normal speech A/P Problem List: (1) H/O gastric bypass ICD Code: Z98.84 - Bariatric surgery status (2) Hypertension ICD Code: I10 - Essential (primary) hypertension (3) Atrial fibrillation ICD Code: I48.91 - Unspecified atrial fibrillation (4) Closed right femoral fracture ICD Code: S72.91XA - Unspecified fracture of right femur, initial encounter for closed fracture Status: Acute (5) Hyperlipidemia ICD Code: E78.5 - Hyperlipidemia, unspecified Assessment and Plan Right hip fracture. Orthopedic surgery following. I discussed case w jackie Ruiz, and he has cleared pt for surgery. However I was told by RN, that pt will go tomorrow instead. n.p.o. after midnight. Pt agreeable to taking stronger pain meds other than tramadol as his pain is a 6/10. Pain control. Encourage IS use. SCDs and ALFA calix Physical therapy and Occupational Therapy post op Hypertension does not know his medication. prn Catapres . Stable thus far. Hyperlipidemia does not know his medications will try to obtain History of osteoarthritis and weakness: PT/OT Atrial fibrillation: cards following. Awaiting final report. Discussed w germain Ruiz for sx. s/p one dose of IV lasix. echo pending. and troponins 0.09-- >0.14-->0.14 Chronic leg pain History of gastric bypass and cholecystectomy and AICD placement Anemia: Monitor Hb post op. DVT prophylaxis with SCDs and ALFA kellere. DVT proph per ortho. GI prophylaxis with Pepcid Consult case management for discharge planning Discharge Planning scheduled to go to OR tomorrow. Transfer to med/surg Problem Qualifiers (1) Closed right femoral fracture: Qualified Codes: S72.91XA - Unspecified fracture of right femur, initial encounter for closed fracture Katty Avila MD Jun 27, 2017 11:07
[2017-06-27] MEDS: SODIUM CHLORIDE 0.9% FLUSH 10 ML FLUSH IV FLUSH SCH ×2 (11:14→22:09)
[2017-06-27] MEDS: HYDROmorphone HCL PF 2 MG/ML VIAL IV PUSH PRN ×2 (11:14→17:01)
[2017-06-27] MEDS: INSULIN ASPART SUPPLEMENTAL SCALE SQ SCH ×3 (11:14→21:00)
--- NOTE | 2017-06-27 12:16 | ECHRPT ---
Indication: AFIB/AFLUTTER CONCLUSIONS Normal left ventricular size and wall thickness. The left ventricular systolic function is normal wi th an estimated ejection fraction in the range of 60-65%. No definite wall motion abnormalities. Mild mitral annular calcification is present. Mild mitral valve regurgitation. Trileaflet aortic valve. Slight aortic leaflet sclerosis. Structurally normal tricuspid valve. There is mild tricuspid regurgitation. The estimated pulmonary arterial pressure is 65 mmHg. There is a small to moderate size pericardial effusion present. There is no echocardiographic evid ence for tamponade; specifically, there is no right ventricular diastolic collapse, no right atrial invaginat ion, no greater than 25% variation in mitral E wave velocities. BP: 114 / 56 HR: 73 Rhythm: MEASUREMENTS (Male / Female) Normal Values Technical Quality:Fair 2D ECHO LV Diastolic Diameter PLAX 5.9 cm 4.2 - 5.9 / 3.9 - 5.3 cm LV Systolic Diameter PLAX 4.0 cm IVS Diastolic Thickness 1.3 cm 0.6 - 1.0 / 0.6 - 0.9 cm LVPW Diastolic Thickness 1.1 cm 0.6 - 1.0 / 0.6 - 0.9 cm LV Relative Wall Thickness 0.4 RV Internal Dim ED PLAX 3.9 cm LVOT Diameter 2.6 cm LA Systolic Diameter LX 5.1 cm 3.0 - 4.0 / 2.7 - 3.8 cm M-MODE Aortic Root Diameter MM 3.1 cm LA Systolic Diameter MM 5.0 cm LA Ao Ratio MM 1.6 AV Cusp Separation MM 2.1 cm DOPPLER AV Peak Velocity 176.0 cm/s AV Peak Gradient 12.4 mmHg LVOT Peak Velocity 88.8 cm/s LVOT Peak Gradient 3.2 mmHg AV Area Cont Eq pk 2.7 cm MV Area PHT 3.2 cm Mitral E Point Velocity 114.0 cm/s Mitral A Point Velocity 26.3 cm/s Mitral E to A Ratio 4.3 LV E' Lateral Velocity 13.9 cm/s Mitral E to LV E' Lateral Ratio 8.2 LV E' Septal Velocity 8.0 cm/s Mitral E to LV E' Septal Ratio 14.3 TV Peak Velocity 64.2 cm/s TR Peak Velocity 385.0 cm/s TR Peak Gradient 59.3 mmHg Right Atrial Pressure 10.0 mmHg Pulmonary Artery Systolic Pressu 69.3 mmHg Right Ventricular Systolic Press 69.3 mmHg FINDINGS LEFT VENTRICLE Normal left ventricular size and wall thickness. The left ventricular systolic function is normal wi th an estimated ejection fraction in the range of 60-65%. No definite wall motion abnormalities. RIGHT VENTRICLE A pacemaker wire is noted. Normal right ventricular size and systolic function. LEFT ATRIUM The left atrial size is upper limits of normal. RIGHT ATRIUM The right atrial size is upper limits of normal. ATRIAL SEPTUM Normal atrial septal thickness without atrial level shunting by limited color doppler interrogation. AORTA The aortic root and proximal ascending aorta are normal in size on limited imaging. MITRAL VALVE Mild mitral annular calcification is present. Mild mitral valve regurgitation. AORTIC VALVE Trileaflet aortic valve. Slight aortic leaflet sclerosis. TRICUSPID VALVE Structurally normal tricuspid valve. There is mild tricuspid regurgitation. The estimated pulmonary arterial pressure is 65 mmHg. PULMONARY VALVE No pulmonary valve regurgitation or stenosis. VESSELS The inferior vena cava was not well visualized. PERICARDIUM There is a small to moderate size pericardial effusion present. There is no echocardiographic evid ence for tamponade; specifically, there is no right ventricular diastolic collapse, no right atrial invaginat ion, no greater than 25% variation in mitral E wave velocities. Ramesh Hawk MD (Electronically Signed) Final Date:27 June 2017 12:15
[2017-06-27 16:24] LABS: HEMOGLOBIN A1C 4.8 % (4.3-6.0)
[2017-06-27] MEDS: PANTOPRAZOLE SODIUM 40 MG VIAL IV PUSH SCH (17:01)
[2017-06-28] VITALS (9 sets, daily range): BP systolic 92–112; BP diastolic 49–58; PULSE 65–73; RESP 15–20; TEMP 98.1–99.1; O2SAT 93–100
[2017-06-28] MEDS: CHLORHEXIDINE GLUCONATE 2 % 1 PACK (2 CLOTHS)(taper/protocol) TOPICAL SCH (02:23)
[2017-06-28] MEDS ORDERED: LACTATED RINGER'S 1000 ML IV PRN (04:45)
[2017-06-28] MEDS ORDERED: POVIDONE IODINE 5% (ANTISEPSIS KIT) 4 APPLICATIONS EACH NARE PRN (04:45)
[2017-06-28] MEDS ORDERED: CHLORHEXIDINE GLUCONATE 2 % 1 PACK (2 CLOTHS) TOPICAL PRN (04:45)
[2017-06-28] MEDS ORDERED: SODIUM CHLORID 0.9% 500 ML IV PRN (04:45)
[2017-06-28] MEDS ORDERED: BUPIVACAINE/EPINEPHRINE 0.25% 50 ML VIAL ONE (06:45)
[2017-06-28] MEDS ORDERED: ceFAZolin 2 GM PREMIX 50 ML ONE (06:45)
[2017-06-28] MEDS ORDERED: GENTAMICIN SULFATE 80 MG/2 ML VIAL ONE (06:45)
--- NOTE | 2017-06-28 07:25 | PD.CONS ---
HPI Service Orthopedic Surgeons Consult Requested By Reason for Consult Right subtroch femur fracture Primary Care Physician Unknown Admission Diagnosis Proximal right femur fracture Diagnoses: (1) H/O gastric bypass Diagnosis: Secondary (2) Hypertension Diagnosis: Secondary (3) Atrial fibrillation Diagnosis: Secondary (4) Closed right femoral fracture Diagnosis: Principal (5) Hyperlipidemia Chief Complaint: Right leg pain History of Present Illness 71-year-old male who was initially brought to the emergency department from [place] in [facility] for a right hip pain. Patient was going down the stairs earlier today when he fell off the landing and landed on his right hip. Complains of right hip pain and inability to ambulate. Patient denied any issue of loss of consciousness or head injury during the fall. Denies any neck pain he denies any chest pain or any shortness of breath denies any abdominal pain. Review of Systems Constitutional: DENIES: Fever Endocrine: DENIES: Polyuria Eyes: DENIES: Blurred vision Ears, nose, mouth, throat: DENIES: Throat pain Respiratory: DENIES: Cough Cardiovascular: DENIES: Chest pain Gastrointestinal: DENIES: Abdominal pain Musculoskeletal: COMPLAINS OF: Joint pain, Muscle aches, Joint Swelling Integumentary: DENIES: Rash Hematologic/lymphatic: DENIES: Bruising Immunologic/allergic: DENIES: Eczema Neurologic: DENIES: Abnormal gait Psychiatric: DENIES: Anxiety Past Family Social History Past Medical History Hypertension Hyperlipidemia Atrial fibrillation Chronic leg pain and weakness Past Surgical History Gastric bypass surgery Cholecystectomy Appendectomy AICD placement Reported Medications Please see full list Allergies: Coded Allergies: No Known Allergies (Unverified , 06/26/17) Active Ordered Medications Current Medications Medications (Trade) Dose Ordered Sig/Jesi Route Start Time Stop Time Status Last Admin (D50w (Vial) Inj) 50 ml UNSCH PRN IV PUSH 06/26/17 14:30 06/27/17 02:38 (Glucagon Inj) 1 mg UNSCH PRN OTHER 06/26/17 14:30 (NovoLOG SUPPLEMENTAL SCALE) 1 ACHS SLIDING SCALE SQ 06/26/17 17:00 (Catapres) 0.1 mg Q4H PRN PO 06/26/17 14:30 (NS Flush) 2 ml UNSCH PRN IV FLUSH 06/26/17 14:30 (NS Flush) 2 ml BID IV FLUSH 06/26/17 21:00 06/27/17 22:09 (Tylenol) 650 mg Q4H PRN PO 06/26/17 14:30 (Zofran Inj) 4 mg Q6H PRN IVP 06/26/17 14:30 (Reglan Inj) 5 mg Q6H PRN IV PUSH 06/26/17 14:30 (Tylenol) 650 mg Q6H PRN PO 06/26/17 14:30 (Percocet 5-325 Mg) 1 tab Q6H PRN PO 06/26/17 14:30 06/28/17 02:40 (Percocet 10-325 Mg) 1 tab Q6H PRN PO 06/26/17 14:30 06/26/17 18:03 (Dilaudid Pf Inj) 0.5 mg Q3H PRN IV PUSH 06/26/17 14:45 06/27/17 17:01 (Dilaudid Pf Inj) 1 mg Q3H PRN IV PUSH 06/26/17 14:45 (Dilaudid Pf Inj) 1 mg Q3H PRN IV PUSH 06/26/17 15:00 (Narcan Inj) 0.4 mg UNSCH PRN IV PUSH 06/26/17 14:30 (Francie-Colace) 1 tab BID PO 06/26/17 21:00 06/27/17 22:09 (Milk Of Magnesia Liq) 30 ml Q12H PRN PO 06/26/17 14:30 (Senokot) 17.2 mg Q12H PRN PO 06/26/17 14:30 (Dulcolax Supp) 10 mg DAILY PRN RECTAL 06/26/17 14:30 (Lactulose Liq) 30 ml DAILY PRN PO 06/26/17 14:30 (Protonix Inj) 40 mg Q24H IV PUSH 06/26/17 16:00 06/27/17 17:01 Miscellaneous Information Patient in critical care unit? Ass... Q361D .XX 06/27/17 00:15 06/27/17 00:15 (Chlorhexidine 2% Cloth) 3 pack DAILY@04 TOPICAL 06/27/17 04:00 07/01/17 04:01 06/27/17 00:23 (Chlorhexidine 2% Cloth) 3 pack UNSCH PRN TOPICAL 06/27/17 00:15 07/02/17 00:06 Lactated Ringer's 1,000 ml @ 30 mls/hr Q24H PRN IV 06/28/17 04:45 07/01/17 04:44 06/28/17 06:09 Sodium Chloride 500 ml @ 30 mls/hr [id number] PRN IV 06/28/17 04:45 07/01/17 04:44 (Betadine 5% Antisepsis Kit) 1 applic AUTOMATIC QUILLING MACHINE OPERATOR PRN EACH NARE 06/28/17 04:45 07/01/17 04:44 (Chlorhexidine 2% Cloth) 3 pack AUTOMATIC QUILLING MACHINE OPERATOR PRN TOPICAL 06/28/17 04:45 07/01/17 04:44 Family History Does not know any of his family history Social History Denies any tobacco, alcohol, or illicits Physical Exam Vital Signs Vital Signs Date Time Temp Pulse Resp B/P (MAP) Pulse Ox O2 Delivery O2 Flow Rate FiO2 06/28/17 04:07 73 06/28/17 03:29 18 06/28/17 03:00 98.1 73 18 95/52 (66) 95 06/27/17 23:54 73 06/27/17 23:11 73 06/27/17 23:01 97.4 76 18 106/50 (68) 97 06/27/17 21:10 97.7 75 18 109/71 (84) 94 06/27/17 21:04 Nasal Cannula 4.00 06/27/17 20:00 98.4 73 16 105/51 (69) 96 06/27/17 17:40 19 06/27/17 16:00 97 Nasal Cannula 2.00 06/27/17 16:00 97.9 73 17 103/50 (67) 97 06/27/17 12:00 98 Nasal Cannula 2.00 06/27/17 12:00 98.3 73 19 113/56 (75) 98 06/27/17 10:00 98 Nasal Cannula 2.00 06/27/17 08:00 98.1 72 18 108/51 (70) 98 06/27/17 07:35 100 Nasal Cannula 2.00 06/27/17 07:30 98 Nasal Cannula 2.00 Physical Exam Awake, alert, no acute distress. Baseline poor historian with some mild confusion Cephalic Pupils equal No JVD Moist mucous membranes Nonlabored respirations Soft nontender abdomen Regular rate Right lower extremity: Leg is externally rotated and has significant discomfort with any range of motion. Patient demonstrates positive EHL and FHL otherwise relatively uncooperative with neuro exam. Sensation appears grossly intact. Brisk cap refill. Bilateral upper extremities and left lower extremity: No tenderness palpation or visible deformities. Allows passive range of motion throughout without any significant discomfort. Grossly appears neurovascularly intact with sensation intact. Brisk cap refill. No rash Normal affect although baseline mild confusion Laboratory Laboratory Tests Test 06/27/17 08:35 White Blood Count 4.8 Red Blood Count 3.12 Hemoglobin 8.4 Hematocrit 25.9 Mean Corpuscular Volume 82.8 Mean Corpuscular Hemoglobin 26.9 Mean Corpuscular Hemoglobin Concent 32.5 Red Cell Distribution Width 20.7 Platelet Count 251 Mean Platelet Volume 7.2 Neutrophils (%) (Auto) 78.8 Lymphocytes (%) (Auto) 10.0 Monocytes (%) (Auto) 9.1 Eosinophils (%) (Auto) 1.5 Basophils (%) (Auto) 0.6 Neutrophils # (Auto) 3.8 Lymphocytes # (Auto) 0.5 Monocytes # (Auto) 0.4 Eosinophils # (Auto) 0.1 Basophils # (Auto) 0.0 CBC Comment DIFF FINAL Differential Comment Prothrombin Time 14.9 Prothromb Time International Ratio 1.5 Blood Urea Nitrogen 22 Creatinine 0.71 Random Glucose 77 Total Protein 6.2 Albumin 2.5 Calcium Level 9.5 Phosphorus Level 2.9 Magnesium Level 2.3 Alkaline Phosphatase 100 Aspartate Amino Transf (AST/SGOT) 33 Alanine Aminotransferase (ALT/SGPT) 18 Total Bilirubin 0.9 Sodium Level 142 Potassium Level 4.3 Chloride Level 105 Carbon Dioxide Level 32.5 Anion Gap 5 Estimat Glomerular Filtration Rate 109 Hemoglobin A1c 4.8 Ammonia 21 B-Type Natriuretic Peptide 423 Amylase Level 13 Lipase 28 Free Thyroxine 1.29 Thyroid Stimulating Hormone 3rd Gen 1.240 Result Diagram: 06/27/17 0835 06/27/17 0835 Course Last 72 hours Impressions Pelvis X-Ray 06/26/17 1046 Signed Impressions: Service Date/Time: June 11:12 - CONCLUSION: Acute oblique fracture the proximal femoral shaft on the right. Claudio Klein MD Femur X-Ray 06/26/17 1046 Signed Impressions: Service Date/Time: June 11:14 - CONCLUSION: Oblique fracture through the proximal right femoral shaft. Claudio Klein MD Chest X-Ray 06/26/17 1046 Signed Impressions: Service Date/Time: June 11:24 - CONCLUSION: 1. No significant pneumothorax or effusion. 2. Cardiomegaly with slight positive fluid balance. 3. Minimal atelectasis in the left midlung zone. 4. Suspect old inferior right rib fracture. Freddie Yuen MD Assessment & Plan Assessment and Plan 1) Right Subtrochanteric Femur Fx Options management were discussed with the patient. Given his displaced subtrochanteric femur fracture, I recommended an operative intervention the form of intramedullary nailing of his right femur. Risks, benefits, alternatives were discussed with the patient. Risks of surgery including but not limited to: Infection, nonunion or malunion, hardware malposition or failure , neurovascular injury, persistent hip pain and or weakness, possible need for further surgery, medical complications, and other unforeseen consultations were all discussed with the patient. Postoperative course including likely partial weightbearing after surgery was discussed with the patient. Patient is nothing by mouth and has been cleared by medicine and cardiology for surgery. Plan for surgery this morning. Natalia Sanchez MD Jun 28, 2017 07:25
[2017-06-28] MEDS ORDERED: LIDOCAINE HCL 1% PF 5 ML AMPULE ONE (07:52)
[2017-06-28] MEDS ORDERED: PROPOFOL 500 MG/50 ML INJ 0 ML ONE (07:52)
[2017-06-28] MEDS ORDERED: BUPIVACAINE PF 0.75% DEX-WATER INJ 2 ML AMP ONE (07:52)
[2017-06-28 07:57] LABS: AUTOMATED NEUTROPHIL # 4.8 TH/MM3 (1.8-7.7); BASOPHIL % 0.3 % (0.0-2.0); EOSINOPHIL % 0.8 % (0.0-4.0); HEMATOCRIT 28.1 % (39.0-51.0); HEMOGLOBIN 8.5 GM/DL (13.0-17.0); LYMPH % 8.2 % (9.0-44.0); LYMPHOCYTE # 0.5 TH/MM3 (1.0-4.8); MEAN CELL VOLUME 83.9 FL (80.0-100.0); MEAN CORPUSCULAR HEMOGLOBIN 25.3 PG (27.0-34.0); MEAN CORPUSCULAR HGB CONC 30.2 % (32.0-36.0); MEAN PLATELET VOLUME 7.2 FL (7.0-11.0); MONO % 7.8 % (0.0-8.0); MONOCYTE # 0.4 TH/MM3 (0-0.9); NEUT % 82.9 % (16.0-70.0); PLATELET COUNT 273 TH/MM3 (150-450); RED BLOOD COUNT 3.35 MIL/MM3 (4.50-5.90); RED CELL DISTRIBUTION WIDTH 20.7 % (11.6-17.2); WHITE BLOOD COUNT 5.8 TH/MM3 (4.0-11.0)
[2017-06-28] MEDS ORDERED: VANCOMYCIN HCL 1000 MG VIAL ONE (08:07)
[2017-06-28 08:14] LABS: BICARBONATE 33.9 MEQ/L (21.0-32.0); CALCIUM 9.2 MG/DL (8.5-10.1); CREATININE 0.7 MG/DL (0.60-1.30)
[2017-06-28] MEDS: DOCUSATE SODIUM 50 MG/SENNA 8.6 MG TAB PO SCH ×2 (09:00→21:00)
--- NOTE | 2017-06-28 10:10 | PD.OP ---
cc: Natalia Sanchez MD Operative Report Date of Surgery: Jun 28, 2017 Preoperative Diagnosis: Closed right subtrochanteric femur fracture Postoperative Diagnosis: Same Procedure: Intramedullary nailing right subtrochanteric femur fracture Anesthesia: Spinal Surgeon: Natalia Sanchez Coater Operator Insulation Board(s): Jordan Robertson Operation and Findings: EBL: 100 cc Complications: None Specimens: None Indications for procedure: patient is a 71-year-old gentleman who presented after a reported fall with acute onset right hip and leg pain. Patient was found to have a right subtrochanteric femur fracture. Patient was seen and evaluated by medicine and cardiology and cleared for surgery. Options of management were discussed with the patient. Given his subtrochanteric femur fracture recommendation for intramedullary nailing of his right femur fracture. Risks of surgery including but not limited to: Infection, nonunion or malunion , hardware malposition or failure, persistent hip pain, stiffness and/or weakness, neurovascular injury, possible need for further surgery, and other unforeseen comp occasions were all discussed with the patient. At this time he has consented to the procedure. Description of procedure: Patient was brought back to the operating room and given limited sedation. Spinal anesthesia was then administered. Patient was then positioned supine on the operating room fracture table with all bony prominences well-padded. Patient was prepped and draped in standard sterile fashion. Preoperative antibiotics were given within 1 hour of incision. Timeout was performed to identify the correct patient, side, site and procedure to be performed. A small approximately 2 inch incision was made just proximal and posterior to the greater trochanter. Sharp dissection through the skin and subcutaneous tissue and fascia was made. A guidewire was then placed into the tip of the greater trochanter on both AP and lateral radiographs and then advanced to the lesser trochanteric region. An opening reamer was then used to allow access to the femoral canal and advanced to the lesser trochanteric region. A ball-tipped guidewire was then advanced into the femur past the fracture site down to the distal femur. This was then measured. The femur was reduced with the use of traction and rotation on the fracture table. The femur was subsequently reamed to a size 13-1/2 reamer until there was some cortical chatter achieved. A Synthes TFN size 12 nail was then placed and advanced past the fracture site and into the distal femur. This was advanced into appropriate position at the hip on both AP and lateral radiographs. Again, the fracture was verified to be reduced. The guide sleeves for the proximal blade were then inserted and a lateral incision was made over the proximal aspect of the femur with sharp dissection through skin subtenons tissue and fascia to allow the guide sleeve to be placed down to the proximal lateral cortex of the femur. A guidewire was then placed into the femoral neck and into the femoral head in a center center position and verified in both AP and lateral radiographs. This was subsequently measured, drilled and a proximal blade inserted. The proximal locking screw was then tightened down and backed off a half a turn to allow for appropriate compression. Again, the fracture was well reduced. The insertion handle and guide was then removed from the femoral nail. Distal locking screws were then placed with the use of perfect circles. Sharp dissection through the skin, subcutaneous tissue and fascia. These were subsequently drilled, measured and placed in the most proximal locking screw hole and then into the dynamic screw hole. Hardware was verified to be in appropriate position on final radiographs both on AP and lateral. The fracture was well reduced. All incisions were thoroughly irrigated with normal saline laden with gentamicin. The deep tissue was closed with Vicryl sutures and the skin closed with linda. Sterile dressings were then applied. Patient was then transitioned off of the operating room table onto his hospital bed. Disposition: partial weightbearing 50% right lower extremity. Natalia Sanchez MD Jun 28, 2017 10:10
[2017-06-28] MEDS ORDERED: SODIUM CHLORIDE 0.9% FLUSH 10 ML FLUSH IV FLUSH PRN (10:15)
[2017-06-28] MEDS: SODIUM CHLORIDE 0.9% FLUSH 10 ML FLUSH IV FLUSH SCH ×2 (10:25→22:50)
[2017-06-28] MEDS ORDERED: *RESP: ALBUTEROL 2.5 MG/3 ML NEB (PRN) PERIprocedural Use ONLY NEB ONE (10:42)
[2017-06-28] MEDS ORDERED: HYDROmorphone HCL PF 0.5 MG/0.5 ML SYRINGE ONE (10:50)
[2017-06-28] MEDS ORDERED: Post-op Orders (for Pharmacy) XX ONE (11:00)
--- NOTE | 2017-06-28 11:01 | RADRPT ---
EXAM DATE/TIME: 06/28/2017 08:35 [facility] COMPARISON: FEMUR RIGHT (AP & LAT/2VWS), June 26, 2017, 11:14. INDICATIONS : ORIF right femur. MEDICAL HISTORY : None. SURGICAL HISTORY : Gastric bypass. Pacemaker ENCOUNTER: Subsequent ACUITY: 2 days PAIN SCORE: Non-responsive. LOCATION: Right Femur. FINDINGS: Intramedullary valery is seen bridging femur fracture. Alignment anatomic. CONCLUSION: Anatomic alignment. Michele Bella MD FACR on June 28, 2017 at 10:59 Board Certified Radiologist. This report was verified electronically.
[2017-06-28] MEDS ORDERED: DO NOT ADM ANY ANTICOAGULANT DRUGS PRN (11:30)
[2017-06-28] MEDS ORDERED: LIDOCAINE HCL 1% PF 5 ML SYRINGE OTHER ONE (12:00)
[2017-06-28] MEDS ORDERED: PHENYLEPH/NS 1000 MCG/10 ML SYR IV ONE (12:00)
[2017-06-28] MEDS ORDERED: ePHEDrine/NS 25 MG/5 ML SYRINGE IV ONE (12:00)
[2017-06-28] MEDS ORDERED: PROPOFOL 200 MG/20 ML AMP IV ONE (12:00)
[2017-06-28] MEDS: INSULIN ASPART SUPPLEMENTAL SCALE SQ SCH ×3 (12:30→21:00)
--- NOTE | 2017-06-28 13:09 | EKG ---
Date Performed: 06/26/2017 Time Performed: 12:05:28 PTAGE: 71 years EKG: Underlying rhythm appears to be atrial fibrillation with 100% ventricular pacing and sensed Ventricular premature complexes ABNORMAL RHYTHM ECG NO PREVIOUS TRACING DOCTOR: Giancarlo Yao Interpretating Date/Time 06/28/2017 13:09:07
[2017-06-28] MEDS ORDERED: PROPOFOL 1000 MG/100 ML INJ 100 ML ONE (14:24)
[2017-06-28] MEDS: PROPOFOL 1000 MG/100 ML IV PRN ×3 (14:30→21:13)
[2017-06-28] MEDS ORDERED: MIDAZOLAM HCL 2 MG/2 ML VIAL ONE (14:41)
--- NOTE | 2017-06-28 15:09 | RADRPT ---
EXAM DATE/TIME: 06/28/2017 14:34 [facility] COMPARISON: CHEST SINGLE AP, June 26, 2017, 11:24. INDICATIONS : ET tube placement. MEDICAL HISTORY : None. SURGICAL HISTORY : None. ENCOUNTER: Initial ACUITY: 3 days PAIN SCORE: Non-responsive. LOCATION: Bilateral chest FINDINGS: Pacemaker device is noted with control pack over the left chest. Endotracheal tube is present in sati sfactory position with tip approximately 4-5 cm above the zeina. There is moderate cardiomegaly and bilateral basilar pleural-parenchymal opacity, right worse than left. CONCLUSION: Satisfactory ET tube positioning. Worsening CHF Claudio Lemus MD on June 28, 2017 at 15:06 Board Certified Radiologist. This report was verified electronically.
[2017-06-28] MEDS: PANTOPRAZOLE SODIUM 40 MG VIAL IV PUSH SCH (15:23)
--- NOTE | 2017-06-28 17:48 | PD.CONS ---
[facility] Service Critical Care Medicine Consult Requested By Dr. almanza Reason for Consult hypercarbic respiratory failure Primary Care Physician Unknown History of Present Illness This is a 71-year-old male initially brought to the emergency department on with right hip pain, noted to have hip fracture. However, inpatient he was in hypercarbic respiratory distress and placed on BiPAP. He underwent operative fixation of his hip today and was extubated the end of the case. In PACU, he was persistently somnolent and ABG was drawn which demonstrates severe hyper cardiac respiratory failure with a primary respiratory acidosis and a pH of 7. He was emergently reintubated. He was transferred to the ICU intubated. No additional information is available from patient. Review of systems is unobtainable. The remainder of the history is obtained from medical record. Review of Systems ROS Limitations: Clinical Condition, Intubated, Altered Mental Status Past Family Social History Allergies: Coded Allergies: No Known Allergies (Unverified , 06/26/17) Past Medical History Unobtainable due to clinical condition. Per chart review: Hypertension Hyperlipidemia Atrial fibrillation Chronic leg pain and weakness Past Surgical History Unobtainable due to clinical condition. Per chart review: Gastric bypass surgery Cholecystectomy Appendectomy AICD placement Reported Medications Unobtainable due to clinical condition Active Ordered Medications See MAR Family History Unobtainable due to clinical condition Social History Unobtainable due to clinical condition. Per chart review: Denies any tobacco, alcohol, or illicits Physical Exam Vital Signs Vital Signs Date Time Temp Pulse Resp B/P (MAP) Pulse Ox O2 Delivery O2 Flow Rate FiO2 06/28/17 16:30 40 06/28/17 16:15 73 117/59 (78) 100 Mechanical Ventilator 40 06/28/17 16:00 73 117/56 (76) 100 Mechanical Ventilator 40 06/28/17 15:45 73 98/54 (69) 100 Mechanical Ventilator 40 06/28/17 15:30 74 91/53 (66) 100 Mechanical Ventilator 40 06/28/17 15:30 40 06/28/17 15:15 74 103/56 (72) 100 Mechanical Ventilator 40 06/28/17 15:00 73 95/55 (68) 100 Mechanical Ventilator 40 06/28/17 14:45 73 98/54 (69) 100 Mechanical Ventilator 40 06/28/17 14:33 99 40 06/28/17 14:30 73 111/55 (73) 100 Mechanical Ventilator 40 06/28/17 14:30 40 06/28/17 14:15 73 115/63 (80) 100 Mechanical Ventilator 40 06/28/17 14:00 74 122/59 (80) 96 Bi-Pap 55 06/28/17 13:45 72 121/59 (79) 94 Bi-Pap 55 06/28/17 13:44 94 55 06/28/17 13:40 72 16 92 06/28/17 13:20 72 90 06/28/17 13:00 72 16 113/58 (76) 94 Nasal Cannula 3 06/28/17 12:30 72 16 130/63 (85) 95 Nasal Cannula 3 06/28/17 12:00 72 16 103/56 (72) 94 Nasal Cannula 3 06/28/17 11:30 72 16 107/57 (74) 96 Nasal Cannula 3 06/28/17 11:15 72 16 98/56 (70) 96 Nasal Cannula 3 06/28/17 11:00 76 16 99/58 (72) 96 Nasal Cannula 3 06/28/17 10:45 72 16 104/58 (73) 98 Nasal Cannula 3 06/28/17 10:30 74 16 113/56 (75) 92 Nasal Cannula 3 06/28/17 10:21 97.6 74 16 104/54 (71) 95 Nasal Cannula 3 06/28/17 07:09 98.7 73 18 92/49 (63) 93 06/28/17 04:07 73 06/28/17 03:29 18 06/28/17 03:00 98.1 73 18 95/52 (66) 95 06/27/17 23:54 73 06/27/17 23:11 73 06/27/17 23:01 97.4 76 18 106/50 (68) 97 06/27/17 21:10 97.7 75 18 109/71 (84) 94 06/27/17 21:04 Nasal Cannula 4.00 06/27/17 20:00 98.4 73 16 105/51 (69) 96 06/27/17 17:40 19 Physical Exam GENERAL: Elderly male, lying in bed, intubated, sedated HEENT: Normocephalic. Atraumatic. Pupils equal, round, reactive, conjugate. Mucous membranes are moist NECK: Trachea is midline. There is no JVD. CHEST: Equal chest rise. PRVC. FiO2 35%. CARDIOVASCULAR: Normal rate, regular rhythm. Appears sinus by telemetry. ABDOMEN: Soft, nontender, nondistended. No guarding. MUSCULOSKELETAL: Pulses 2+. No peripheral edema. Dressings over right hip. NEUROLOGICAL: RASS -3. Sedated. Moves all extremities. No focal deficits. Laboratory Laboratory Tests Test 06/28/17 06:58 06/28/17 13:55 06/28/17 15:28 White Blood Count 5.8 Red Blood Count 3.35 Hemoglobin 8.5 Hematocrit 28.1 Mean Corpuscular Volume 83.9 Mean Corpuscular Hemoglobin 25.3 Mean Corpuscular Hemoglobin Concent 30.2 Red Cell Distribution Width 20.7 Platelet Count 273 Mean Platelet Volume 7.2 Neutrophils (%) (Auto) 82.9 Lymphocytes (%) (Auto) 8.2 Monocytes (%) (Auto) 7.8 Eosinophils (%) (Auto) 0.8 Basophils (%) (Auto) 0.3 Neutrophils # (Auto) 4.8 Lymphocytes # (Auto) 0.5 Monocytes # (Auto) 0.4 Eosinophils # (Auto) 0.0 Basophils # (Auto) 0.0 CBC Comment DIFF FINAL Differential Comment Blood Urea Nitrogen 21 Creatinine 0.70 Random Glucose 86 Calcium Level 9.2 Sodium Level 144 Potassium Level 4.4 Chloride Level 106 Carbon Dioxide Level 33.9 Anion Gap 4 Estimat Glomerular Filtration Rate 111 Blood Gas Puncture Site RT RADIAL LT RADIAL Blood Gas Patient Temperature 98.6 98.6 Blood Gas HCO3 33 29 Blood Gas Base Excess 2.4 4.4 Blood Gas Oxygen Saturation 88 96 Arterial Blood pH 7.01 7.38 Arterial Blood Partial Pressure CO2 139 51 Arterial Blood Partial Pressure O2 80 123 Arterial Blood Oxygen Content 13.9 12.9 Arterial Blood Carboxyhemoglobin 1.6 2.0 Arterial Blood Methemoglobin 1.4 1.3 Blood Gas Hemoglobin 11.3 9.5 Oxygen Delivery Device BIPAP IPAP10/5 EPAP VENTILATOR Blood Gas Inspired Oxygen 55 40 Blood Gas Ventilator Setting A/C 550/14/5PEEP Result Diagram: 06/28/17 0658 06/28/17 0658 Imaging Last Impressions Femur X-Ray 06/28/17 0000 Signed Impressions: Service Date/Time: Wednesday, June 28, 2017 08:35 - CONCLUSION: Anatomic alignment. Michele Bella MD FACR Chest X-Ray 06/28/17 0000 Signed Impressions: Service Date/Time: Wednesday, June 28, 2017 14:34 - CONCLUSION: Satisfactory ET tube positioning. Worsening CHF Claudio Lemus MD Pelvis X-Ray 06/26/17 1046 Signed Impressions: Service Date/Time: June 11:12 - CONCLUSION: Acute oblique fracture the proximal femoral shaft on the right. Claudio Klein MD Assessment and Plan Assessment and Plan Assessment: 71-year-old male postop day 0 status post operative fixation of his right hip with hypercarbic respiratory failure requiring emergent reintubation. critically ill. We will start steroids for empiric COPD exacerbation. Does appear to be grossly volume overloaded, however does appear also to be intravascularly hypovolemic secondary to recent operation. Will not be able to diurese at this time. Will use judicious IV fluids if necessary for intravascular hypovolemia. Active problems: Acute perioperative hypercarbic and hypoxic respiratory failure Acute COPD exacerbation Acute intravascular volume depletion Total body volume overload Acute metabolic encephalopathy: Secondary to hypercarbia and CO2 narcosis Plan: Admit to ICU Frequent neurochecks Propofol for goal RASS -2 Vent bundle Elevated Head of bed Nebs IV steroids Wean FiO2 for goal SPO2 greater than 90% No SBT today A.m. ABG A.m. chest x-ray Gentle fluids as needed to maintain intravascular volume A.m. CBC, BMP PPI, SCDs, pharmacologic DVT prophylaxis when okay with surgeon N.p.o. overnight This patient remains critically ill with one or more organ systems which are or may become a threat to life. I have spent in excess of 32 minutes discontinuously in the care and management of this patient. This time is exclusive of procedures, and includes, but is not limited to, evaluation of the patient, review of the medical record, discussions with family, consultants, nursing staff, or respiratory therapy, and documentation in the medical record. Simone Soto MD Jun 28, 2017 17:48
[2017-06-28] MEDS: HYDROmorphone HCL PF 2 MG/ML VIAL IV PUSH PRN (21:14)
[2017-06-28] MEDS ORDERED: DEXT 5%-NACL 0.45% 1000 ML INJ 1,000 ML IV SCH (21:15)
[2017-06-29] VITALS (10 sets, daily range): BP systolic 95–117; BP diastolic 52–57; PULSE 67–76; RESP 14–16; TEMP 97.6–99.1; O2SAT 99–100
[2017-06-29] MEDS: CHLORHEXIDINE GLUCONATE 2 % 1 PACK (2 CLOTHS)(taper/protocol) TOPICAL SCH (04:00)
[2017-06-29] MEDS: PROPOFOL 1000 MG/100 ML IV PRN ×3 (04:09→20:33)
[2017-06-29] MEDS: HYDROmorphone HCL PF 2 MG/ML VIAL IV PUSH PRN ×2 (04:09→09:24)
--- NOTE | 2017-06-29 07:50 | PD.ORT.PN ---
Subjective Subjective Remarks Patient intubated and sedated currently. Postoperatively, patient developed hypercapnia with significant pH alterations on ABG. Patient was intubated and brought to the ICU. His ABG this morning has improved and discussion of possible weaning to extubation. Objective Vitals Vital Signs Date Time Temp Pulse Resp B/P (MAP) Pulse Ox O2 Delivery O2 Flow Rate FiO2 06/29/17 04:00 98.5 76 16 109/52 (71) 100 06/29/17 00:00 99.1 72 14 95/53 (67) 99 06/28/17 20:49 100 35 06/28/17 20:00 99.1 72 20 100/55 (70) 100 06/28/17 18:00 98.6 65 15 112/58 (76) 100 06/28/17 17:30 100 Mechanical Ventilator 40 06/28/17 17:15 73 116/59 (78) 100 Mechanical Ventilator 40 06/28/17 17:15 40 06/28/17 17:00 73 116/57 (76) 100 Mechanical Ventilator 40 06/28/17 16:45 73 120/57 (78) 100 Mechanical Ventilator 40 06/28/17 16:30 40 06/28/17 16:30 73 120/55 (76) 100 Mechanical Ventilator 40 06/28/17 16:15 73 117/59 (78) 100 Mechanical Ventilator 40 06/28/17 16:00 73 117/56 (76) 100 Mechanical Ventilator 40 06/28/17 15:45 73 98/54 (69) 100 Mechanical Ventilator 40 06/28/17 15:30 74 91/53 (66) 100 Mechanical Ventilator 40 06/28/17 15:30 100 Mechanical Ventilator 40 06/28/17 15:30 40 06/28/17 15:15 74 103/56 (72) 100 Mechanical Ventilator 40 06/28/17 15:00 73 95/55 (68) 100 Mechanical Ventilator 40 06/28/17 14:45 73 98/54 (69) 100 Mechanical Ventilator 40 06/28/17 14:33 99 40 06/28/17 14:30 73 111/55 (73) 100 Mechanical Ventilator 40 06/28/17 14:30 40 06/28/17 14:15 73 115/63 (80) 100 Mechanical Ventilator 40 06/28/17 14:00 74 122/59 (80) 96 Bi-Pap 55 06/28/17 13:45 72 121/59 (79) 94 Bi-Pap 55 06/28/17 13:44 94 55 06/28/17 13:40 72 16 92 06/28/17 13:20 72 90 06/28/17 13:00 72 16 113/58 (76) 94 Nasal Cannula 3 06/28/17 12:30 72 16 130/63 (85) 95 Nasal Cannula 3 06/28/17 12:00 72 16 103/56 (72) 94 Nasal Cannula 3 06/28/17 11:30 72 16 107/57 (74) 96 Nasal Cannula 3 06/28/17 11:15 72 16 98/56 (70) 96 Nasal Cannula 3 06/28/17 11:00 76 16 99/58 (72) 96 Nasal Cannula 3 06/28/17 10:45 72 16 104/58 (73) 98 Nasal Cannula 3 06/28/17 10:30 74 16 113/56 (75) 92 Nasal Cannula 3 06/28/17 10:21 97.6 74 16 104/54 (71) 95 Nasal Cannula 3 I/O 06/28/17 06/28/17 06/28/17 06/29/17 06/29/17 06/29/17 07:00 15:00 23:00 07:00 15:00 23:00 Intake Total 0 ml 3350 ml 100 ml Output Total 250 ml 525 ml 150 ml 275 ml Balance -250 ml 2825 ml -50 ml -275 ml Intake Oral 0 ml IV Total 550 ml 100 ml Packed Cells 1000 ml Other 1800 ml Output Urine Total 250 ml 325 ml 150 ml 275 ml Estimated Blood Loss 200 ml # Voids 1 # Bowel Movements 0 0 0 Result Diagram: 06/28/1758 06/28/17657 Imaging Last 24 hours Impressions Pelvis X-Ray 06/26/171045 Signed Impressions: Service Date/Time: June 11:12 - CONCLUSION: Acute oblique fracture the proximal femoral shaft on the right. Claudio Klein MD Femur X-Ray 06/26/171045 Signed Impressions: Service Date/Time: June 11:14 - CONCLUSION: Oblique fracture through the proximal right femoral shaft. Claudio Klein MD Chest X-Ray 4/12/18 1046 Signed Impressions: Service Date/Time: June 11:24 - CONCLUSION: 1. No significant pneumothorax or effusion. 2. Cardiomegaly with slight positive fluid balance. 3. Minimal atelectasis in the left midlung zone. 4. Suspect old inferior right rib fracture. Freddie Yuen MD Objective Remarks Intubated and sedated Right lower extremity: Dressings in place without any significant drainage. Brisk cap refill. Assessment & Plan Assessment and Plan 1) Right Subtrochanteric Femur Fx, POD#1 s/p IMN R femur 1. Partial weightbearing 50% right lower extremity 2. PT for mobilization once patient is able to be extubated and mobilized 3. Lovenox for DVT prophylaxis 4. Appreciate ICU management. Discussion of possible weaning to extubation later today. Natalia Sanchez MD Jun 29, 2017 07:50
[2017-06-29] MEDS: INSULIN ASPART SUPPLEMENTAL SCALE SQ SCH ×4 (08:00→21:00)
[2017-06-29] MEDS: DOCUSATE SODIUM 50 MG/SENNA 8.6 MG TAB PO SCH ×2 (08:37→20:33)
[2017-06-29] MEDS: SODIUM CHLORIDE 0.9% FLUSH 10 ML FLUSH IV FLUSH SCH ×2 (08:38→21:00)
--- NOTE | 2017-06-29 08:50 | HHI.CCPN ---
Subjective Remarks/Hospital Course Hospital Course: This is a 71-year-old male initially brought to the emergency department on with right hip pain, noted to have hip fracture. However, inpatient he was in hypercarbic respiratory distress and placed on BiPAP. He underwent operative fixation of his hip today and was extubated the end of the case. In PACU, he was persistently somnolent and ABG was drawn which demonstrates severe hyper cardiac respiratory failure with a primary respiratory acidosis and a pH of 7. He was emergently reintubated. He was transferred to the ICU intubated. No additional information is available from patient. Review of systems is unobtainable. The remainder of the history is obtained from medical record. Subjective: 06/29: abg improving. will start SBTs. remains in steroids. appears slightly volume overloaded. may need to be weaned from mechanical ventilation to BiPAP. Objective Vital Signs Date Time Temp Pulse Resp B/P (MAP) Pulse Ox O2 Delivery O2 Flow Rate FiO2 06/29/17 04:00 98.5 76 16 109/52 (71) 100 06/29/17 01:47 35 06/28/17 17:30 Mechanical Ventilator 06/28/17 13:00 3 Intake and Output 06/29/17 06/29/17 06/30/17 08:00 16:00 00:00 Output Total 275 ml Balance -275 ml Result Diagram: 06/28/17 0658 06/28/17 0658 Other Results Laboratory Tests Test 06/28/17 13:55 06/28/17 15:28 06/29/17 07:00 Blood Gas Puncture Site RT RADIAL LT RADIAL RT RADIAL Blood Gas Patient Temperature 98.6 98.6 98.6 Blood Gas HCO3 33 mmol/L (22-26) 29 mmol/L (22-26) 28 mmol/L (22-26) Blood Gas Base Excess 2.4 mmol/L (-2-2) 4.4 mmol/L (-2-2) 4.5 mmol/L (-2-2) Blood Gas Oxygen Saturation 88 % (90-100) 96 % (90-100) 97 % (90-100) Arterial Blood pH 7.01 (7.380-7.420) 7.38 (7.380-7.420) 7.49 (7.380-7.420) Arterial Blood Partial Pressure CO2 139 mmHg (38-42) 51 mmHg (38-42) 38 mmHg (38-42) Arterial Blood Partial Pressure O2 80 mmHg (61-120) 123 mmHg (61-120) 145 mmHg (61-120) Arterial Blood Oxygen Content 13.9 Vol % (12.0-20.0) 12.9 Vol % (12.0-20.0) 11.7 Vol % (12.0-20.0) Arterial Blood Carboxyhemoglobin 1.6 % (0-4) 2.0 % (0-4) 1.7 % (0-4) Arterial Blood Methemoglobin 1.4 % (0-2) 1.3 % (0-2) 0.9 % (0-2) Blood Gas Hemoglobin 11.3 G/DL (12.0-16.0) 9.5 G/DL (12.0-16.0) 8.3 G/DL (12.0-16.0) Oxygen Delivery Device BIPAP IPAP10/5 EPAP VENTILATOR VENTILATOR Blood Gas Inspired Oxygen 55 % 40 % 35 % Blood Gas Ventilator Setting A/C 550/14/5PEEP AC14/550/+5PEEP Imaging Last Impressions Femur X-Ray 06/28/17 0000 Signed Impressions: Service Date/Time: Wednesday, June 28, 2017 08:35 - CONCLUSION: Anatomic alignment. Michele Bella MD FACR Chest X-Ray 06/28/17 0000 Signed Impressions: Service Date/Time: Wednesday, June 28, 2017 14:34 - CONCLUSION: Satisfactory ET tube positioning. Worsening CHF Claudio Lemus MD Pelvis X-Ray 06/26/17 1046 Signed Impressions: Service Date/Time: June 11:12 - CONCLUSION: Acute oblique fracture the proximal femoral shaft on the right. Claudio Klein MD Objective Remarks GENERAL: Elderly male, lying in bed, intubated, sedated HEENT: Normocephalic. Atraumatic. Pupils equal, round, reactive, conjugate. Mucous membranes are moist NECK: Trachea is midline. There is no JVD. CHEST: Equal chest rise. PRVC. FiO2 35%. CARDIOVASCULAR: Normal rate, regular rhythm. Appears sinus by telemetry. ABDOMEN: Soft, nontender, nondistended. No guarding. MUSCULOSKELETAL: Pulses 2+. No peripheral edema. Dressings over right hip. NEUROLOGICAL: RASS -2. Sedated. Moves all extremities. No focal deficits. A/P Assessment and Plan Assessment: 71-year-old male postop day 1 status post operative fixation of his right hip with hypercarbic respiratory failure requiring emergent reintubation. critically ill. continue steroids. start SBT attempts. will start gentle diuresis. Active problems: Acute perioperative hypercarbic and hypoxic respiratory failure Acute COPD exacerbation Total body volume overload Acute metabolic encephalopathy: Secondary to hypercarbia and CO2 narcosis Plan: remain in ICU Frequent neurochecks Propofol for goal RASS -2 Vent bundle Elevated Head of bed Nebs IV steroids Wean FiO2 for goal SPO2 greater than 90% start daily SBTs A.m. ABG d/c mivf. A.m. CBC, BMP PPI, SCDs, pharmacologic DVT prophylaxis when okay with surgeon N.p.o. overnight lasix and diamox x 1 with concentrated albumin. may need to extubate to BiPAP. Simone Soto MD Jun 29, 2017 08:50
[2017-06-29] MEDS ORDERED: FUROSEMIDE 40 MG/4 ML VIAL IV PUSH ONE (09:00)
[2017-06-29] MEDS ORDERED: ALBUMIN 25% INJ 100 ML IV ONE (09:00)
[2017-06-29 09:05] LABS: HEMATOCRIT 27.2 % (39.0-51.0); HEMOGLOBIN 8.7 GM/DL (13.0-17.0); MEAN CELL VOLUME 80.9 FL (80.0-100.0); MEAN CORPUSCULAR HGB CONC 32.1 % (32.0-36.0); MEAN PLATELET VOLUME 7.3 FL (7.0-11.0); PLATELET COUNT 198 TH/MM3 (150-450); RED BLOOD COUNT 3.37 MIL/MM3 (4.50-5.90); RED CELL DISTRIBUTION WIDTH 19.8 % (11.6-17.2); WHITE BLOOD COUNT 5.1 TH/MM3 (4.0-11.0)
[2017-06-29 09:26] LABS: BICARBONATE 29.1 MEQ/L (21.0-32.0); CALCIUM 9.3 MG/DL (8.5-10.1); CREATININE 0.72 MG/DL (0.60-1.30); PHOSPHORUS 1.6 MG/DL (2.5-4.9)
--- NOTE | 2017-06-29 12:43 | RADRPT ---
EXAM DATE/TIME: 06/29/2017 12:03 [facility] COMPARISON: No previous studies available for comparison. INDICATIONS : Confirm NG tube placement. MEDICAL HISTORY : None. SURGICAL HISTORY : Pacemaker. Gastric bypass. ENCOUNTER: Subsequent ACUITY: 2 days PAIN SCORE: Non-responsive. LOCATION: Abdomen. FINDINGS: Feeding tube in the fundus. There is cardiomegaly and minimal bibasilar rectal changes. CONCLUSION: Feeding tube in the fundus. Michele Bella MD FACR on June 29, 2017 at 12:41 Board Certified Radiologist. This report was verified electronically.
--- NOTE | 2017-06-29 15:06 | RADRPT ---
EXAM DATE/TIME: 06/29/2017 14:02 [facility] COMPARISON: No previous studies available for comparison. INDICATIONS : Confirm NG tube placement. MEDICAL HISTORY : None. SURGICAL HISTORY : Pacemaker. Gastric bypass. ENCOUNTER: Subsequent ACUITY: 2 days PAIN SCORE: Non-responsive. LOCATION: Abdomen. FINDINGS: A weighted feeding tube descends well down into the abdomen, presumably into the distal body of stoma ch. This lies intestinal gas pattern is nonspecific and benign. Cardiomegaly and basilar pleuroparenc hymal opacities are noted. CONCLUSION: Weighted feeding tube extends well down into the stomach Claudio Lemus MD on June 29, 2017 at 15:03 Board Certified Radiologist. This report was verified electronically.
[2017-06-29] MEDS: PANTOPRAZOLE SODIUM 40 MG VIAL IV PUSH SCH (15:42)
[2017-06-29] MEDS: oxyCODONE HCL ORAL CONC 5 MG/0.25 ML SYRINGE PO PRN (20:33)
[2017-06-29] MEDS: RESP: BUDESONIDE 0.25 MG/2 ML NEB NEB SCH (21:47)
[2017-06-30] VITALS (16 sets, daily range): BP systolic 98–143; BP diastolic 47–60; PULSE 73–77; RESP 10–24; TEMP 98.4–98.7; O2SAT 100
[2017-06-30] MEDS: PROPOFOL 1000 MG/100 ML IV PRN (02:33)
[2017-06-30] MEDS: oxyCODONE HCL ORAL CONC 5 MG/0.25 ML SYRINGE PO PRN ×4 (02:33→16:25)
[2017-06-30] MEDS: CHLORHEXIDINE GLUCONATE 2 % 1 PACK (2 CLOTHS)(taper/protocol) TOPICAL SCH (04:00)
[2017-06-30 05:25] LABS: HEMOGLOBIN 10.3 GM/DL (13.0-17.0); MEAN CELL VOLUME 79.9 FL (80.0-100.0); MEAN CORPUSCULAR HEMOGLOBIN 25.6 PG (27.0-34.0); MEAN CORPUSCULAR HGB CONC 32.1 % (32.0-36.0); MEAN PLATELET VOLUME 7.4 FL (7.0-11.0); PLATELET COUNT 225 TH/MM3 (150-450); RED CELL DISTRIBUTION WIDTH 20.2 % (11.6-17.2); WHITE BLOOD COUNT 5.3 TH/MM3 (4.0-11.0)
[2017-06-30 05:48] LABS: CALCIUM 9.5 MG/DL (8.5-10.1); CREATININE 0.79 MG/DL (0.60-1.30)
[2017-06-30] MEDS: INSULIN ASPART SUPPLEMENTAL SCALE SQ SCH ×4 (08:00→20:43)
[2017-06-30] MEDS: RESP: BUDESONIDE 0.25 MG/2 ML NEB NEB SCH ×2 (08:03→19:55)
--- NOTE | 2017-06-30 08:28 | HHI.CCPN ---
Subjective Remarks/Hospital Course Hospital Course: This is a 71-year-old male initially brought to the emergency department on with right hip pain, noted to have hip fracture. However, inpatient he was in hypercarbic respiratory distress and placed on BiPAP. He underwent operative fixation of his hip today and was extubated the end of the case. In PACU, he was persistently somnolent and ABG was drawn which demonstrates severe hyper cardiac respiratory failure with a primary respiratory acidosis and a pH of 7. He was emergently reintubated. He was transferred to the ICU intubated. No additional information is available from patient. Review of systems is unobtainable. The remainder of the history is obtained from medical record. Subjective: 06/29: abg improving. will start SBTs. remains in steroids. appears slightly volume overloaded. may need to be weaned from mechanical ventilation to BiPAP. 06/30: Lungs clearing. Peripheral perfusion acceptable. Gas exchange acceptable. Objective Vital Signs Date Time Temp Pulse Resp B/P (MAP) Pulse Ox O2 Delivery O2 Flow Rate FiO2 06/30/17 08:04 100 35 06/30/17 06:00 73 06/30/17 04:00 98.4 14 98/47 (64) 06/28/17 17:30 Mechanical Ventilator 06/28/17 13:00 3 Intake and Output 06/30/17 06/30/17 07/01/17 08:00 16:00 00:00 Intake Total 776 ml Output Total 500 ml Balance 276 ml Result Diagram: 06/30/17 0410 06/30/17 0410 Imaging Last Impressions Femur X-Ray 06/28/17 0000 Signed Impressions: Service Date/Time: Wednesday, June 28, 2017 08:35 - CONCLUSION: Anatomic alignment. Michele Bella MD FACR Chest X-Ray 06/28/17 0000 Signed Impressions: Service Date/Time: Wednesday, June 28, 2017 14:34 - CONCLUSION: Satisfactory ET tube positioning. Worsening CHF Claudio Lemus MD Pelvis X-Ray 06/26/17 1046 Signed Impressions: Service Date/Time: June 11:12 - CONCLUSION: Acute oblique fracture the proximal femoral shaft on the right. Claudio Klein MD Objective Remarks GENERAL: Elderly male, lying in bed, intubated, lightly sedated HEENT: Normocephalic. Atraumatic. Pupils equal, round, reactive, conjugate. Mucous membranes are moist NECK: Trachea is midline. Orally intubated. CHEST: Equal chest rise. PRVC. FiO2 35%. No adventitious sounds. CARDIOVASCULAR: Normal rate, regular rhythm. No JVD, but veins full. ABDOMEN: Soft, nontender, nondistended. No guarding. BS active. MUSCULOSKELETAL: Pulses 2+. No peripheral edema. Dressings over right hip, dry , clean. NEUROLOGICAL: RASS -1. Sedated. Moves all extremities. No focal deficits. A/P Assessment and Plan Assessment: 71-year-old male postop day 1 status post operative fixation of his right hip with hypercarbic respiratory failure requiring emergent reintubation. critically ill. continue steroids. start SBT attempts. will start gentle diuresis. Active problems: Acute perioperative hypercarbic and hypoxic respiratory failure Acute COPD exacerbation Total body volume overload Acute metabolic encephalopathy: Secondary to hypercarbia and CO2 narcosis Plan: remain in ICU Frequent neurochecks Propofol for goal RASS 0 Vent bundle Elevated Head of bed Nebs IV steroids Wean FiO2 for goal SPO2 greater than 90% start daily SBTs A.m. ABG d/c mivf. Daily CBC, BMP PPI, SCDs, pharmacologic DVT prophylaxis when okay with surgeon N.p.o. overnight lasix and diamox x 1 with concentrated albumin. may need to extubate to BiPAP. Overall impression: PA hypertension, TR sounds like back htomas failure, possibly exacerbated by chronic hypoxemia. Bilateral effusions. Continue diuresis as ordered. Unable to wean ventilator. Critical Care 40 mins aside from procedures. Miguel Betts MD Jun 30, 2017 08:28
[2017-06-30] MEDS ORDERED: POTASSIUM PHOSPHATE MONOBASIC 500 MG TAB PO/TUBE PRN (08:30)
[2017-06-30] MEDS ORDERED: POTASSIUM PHOSPHATE INJ 30 MMOL in SODIUM CHLOR 0.9% 250 ML INJ 250 ML IV PRN (08:30)
[2017-06-30] MEDS ORDERED: SODIUM PHOSPHATE INJ 30 MMOL in SODIUM CHLOR 0.9% 250 ML INJ 240 ML IV PRN (08:30)
[2017-06-30] MEDS ORDERED: MAGNESIUM SULFATE INJ 4 GM in SODIUM CHLORIDE 0.9% INJ 92 ML IV PRN (08:30)
[2017-06-30] MEDS ORDERED: MAGNESIUM SULFATE INJ 2 GM in SODIUM CHLORIDE 0.9% INJ 96 ML IV PRN (08:30)
[2017-06-30] MEDS ORDERED: MAGNESIUM OXIDE 400 MG TAB PO PRN (08:30)
[2017-06-30] MEDS ORDERED: POTASSIUM CHLORIDE 25 MEQ EFFERVESCENT TAB PO PRN (08:30)
[2017-06-30] MEDS ORDERED: POTASSIUM CHLOR 40 MEQ PREMIX 100 ML IV PRN ×2 (08:30)
[2017-06-30] MEDS ORDERED: POTASSIUM PHOSPHATE MONOBASIC 500 MG TAB PO PRN (08:30)
[2017-06-30] MEDS ORDERED: POTASSIUM CHLOR 20 MEQ PREMIX 100 ML IV PRN ×2 (08:30)
[2017-06-30] MEDS: DOCUSATE SODIUM 50 MG/SENNA 8.6 MG TAB PO SCH ×2 (08:42→20:29)
[2017-06-30] MEDS: SODIUM CHLORIDE 0.9% FLUSH 10 ML FLUSH IV FLUSH SCH ×2 (08:42→20:29)
[2017-06-30] MEDS: FUROSEMIDE 40 MG/4 ML VIAL IV PUSH SCH ×2 (10:29→16:25)
[2017-06-30] MEDS: PANTOPRAZOLE SODIUM 40 MG VIAL IV PUSH SCH (16:24)
[2017-06-30 18:42] LABS: BICARBONATE 30.2 MEQ/L (21.0-32.0); CALCIUM 8.4 MG/DL (8.5-10.1); CREATININE 0.65 MG/DL (0.60-1.30)
[2017-06-30] MEDS: HYDROmorphone HCL PF 2 MG/ML VIAL IV PUSH PRN (23:13)
[2017-07-01] VITALS (17 sets, daily range): BP systolic 97–121; BP diastolic 53–59; PULSE 72–84; RESP 9–24; TEMP 97.6–99.8; O2SAT 93–100
[2017-07-01] MEDS: RESP: BUDESONIDE 0.25 MG/2 ML NEB NEB SCH ×2 (07:52→20:00)
[2017-07-01] MEDS: INSULIN ASPART SUPPLEMENTAL SCALE SQ SCH ×4 (08:00→21:00)
[2017-07-01] MEDS: FUROSEMIDE 40 MG/4 ML VIAL IV PUSH SCH ×2 (08:46→17:04)
[2017-07-01] MEDS: HYDROmorphone HCL PF 2 MG/ML VIAL IV PUSH PRN (08:49)
[2017-07-01] MEDS: SODIUM CHLORIDE 0.9% FLUSH 10 ML FLUSH IV FLUSH SCH ×2 (08:51→21:00)
[2017-07-01] MEDS: DOCUSATE SODIUM 50 MG/SENNA 8.6 MG TAB PO SCH ×2 (08:52→21:00)
--- NOTE | 2017-07-01 08:58 | HHI.CCPN ---
Subjective Remarks/Hospital Course Hospital Course: This is a 71-year-old male initially brought to the emergency department on with right hip pain, noted to have hip fracture. However, inpatient he was in hypercarbic respiratory distress and placed on BiPAP. He underwent operative fixation of his hip today and was extubated the end of the case. In PACU, he was persistently somnolent and ABG was drawn which demonstrates severe hyper cardiac respiratory failure with a primary respiratory acidosis and a pH of 7. He was emergently reintubated. He was transferred to the ICU intubated. No additional information is available from patient. Review of systems is unobtainable. The remainder of the history is obtained from medical record. Subjective: 06/29: abg improving. will start SBTs. remains in steroids. appears slightly volume overloaded. may need to be weaned from mechanical ventilation to BiPAP. 06/30: Lungs clearing. Peripheral perfusion acceptable. Gas exchange acceptable. 07/01: Much more alert today and breathing comfortably on spontaneous breathing trials. Requiring moderately increased pressure support at 12. Will attempt to extubate today. Objective Vital Signs Date Time Temp Pulse Resp B/P (MAP) Pulse Ox O2 Delivery O2 Flow Rate FiO2 07/01/17 07:52 100 35 07/01/17 06:00 73 07/01/17 04:00 99.2 19 103/59 (74) 06/28/17 17:30 Mechanical Ventilator 06/28/17 13:00 3 Intake and Output 07/01/17 07/01/17 07/02/17 08:00 16:00 00:00 Intake Total 670 ml Output Total 650 ml Balance 20 ml Result Diagram: 06/30/17 0410 06/30/17 1750 Imaging Last Impressions Femur X-Ray 06/28/17 0000 Signed Impressions: Service Date/Time: Wednesday, June 28, 2017 08:35 - CONCLUSION: Anatomic alignment. Michele Bella MD FACR Chest X-Ray 06/28/17 0000 Signed Impressions: Service Date/Time: Wednesday, June 28, 2017 14:34 - CONCLUSION: Satisfactory ET tube positioning. Worsening CHF Claudio Lemus MD Pelvis X-Ray 06/26/17 1046 Signed Impressions: Service Date/Time: June 11:12 - CONCLUSION: Acute oblique fracture the proximal femoral shaft on the right. Claudio Klein MD Objective Remarks GENERAL: Elderly male, lying in bed, intubated, not sedated HEENT: Normocephalic. Atraumatic. Pupils equal, round, reactive, conjugate. Mucous membranes are moist NECK: Trachea is midline. Orally intubated. CHEST: Equal chest rise. PRVC. FiO2 35%. No adventitious sounds. Comfortable pattern on spontaneous breathing trial CARDIOVASCULAR: Normal rate, regular rhythm. No JVD. ABDOMEN: Soft, nontender, nondistended. No guarding. BS active. MUSCULOSKELETAL: Pulses 2+. No peripheral edema. Dressings over right hip, dry , clean. NEUROLOGICAL: RASS 0. Moves all extremities. No focal deficits. Nods head appropriately to questions A/P Assessment and Plan Assessment: 71-year-old male postop day 1 status post operative fixation of his right hip with hypercarbic respiratory failure requiring emergent reintubation. critically ill. continue steroids. start SBT attempts. will start gentle diuresis. Active problems: Acute perioperative hypercarbic and hypoxic respiratory failure Acute COPD exacerbation Total body volume overload Acute metabolic encephalopathy: Secondary to hypercarbia and CO2 narcosis Plan: remain in ICU Frequent neurochecks Propofol for goal RASS 0 Vent bundle Elevated Head of bed Nebs IV steroids, taper Wean FiO2 for goal SPO2 greater than 90% start daily SBTs A.m. ABG d/c mivf. Daily CBC, BMP PPI, SCDs, pharmacologic DVT prophylaxis when okay with surgeon N.p.o. may need to extubate to BiPAP. Overall impression: PA hypertension, TR sounds like back thomas failure, possibly exacerbated by chronic hypoxemia. Bilateral effusions. Continue diuresis as ordered. Attempt extubation Miguel Betts MD Jul 01, 2017 08:58
[2017-07-01 12:24] LABS: HEMATOCRIT 29.3 % (39.0-51.0); HEMOGLOBIN 9.3 GM/DL (13.0-17.0); MEAN CORPUSCULAR HEMOGLOBIN 25.5 PG (27.0-34.0); MEAN CORPUSCULAR HGB CONC 31.9 % (32.0-36.0); MEAN PLATELET VOLUME 7.3 FL (7.0-11.0); PLATELET COUNT 244 TH/MM3 (150-450); RED BLOOD COUNT 3.66 MIL/MM3 (4.50-5.90); RED CELL DISTRIBUTION WIDTH 19.7 % (11.6-17.2); WHITE BLOOD COUNT 5.9 TH/MM3 (4.0-11.0)
[2017-07-01 12:49] LABS: BICARBONATE 32.7 MEQ/L (21.0-32.0); CALCIUM 8.8 MG/DL (8.5-10.1); CREATININE 0.57 MG/DL (0.60-1.30)
[2017-07-01] MEDS: PANTOPRAZOLE SODIUM 40 MG VIAL IV PUSH SCH (17:05)
--- NOTE | 2017-07-01 17:36 | PD.WCN.NOT ---
Wound Consult Description: Consult for WOUND MANAGEMENT of sacral pressure wound and right heel pressure via telephone order per [facility]/Dr Soto Communicated with: Belen HURD Recommendation: Apply skin prep to right lateral heel Stage 1 pressure injury (non blanching erythema) and float off mattress surface. Leave Optifoam gentle in place over partially unroofed blood blister on sacrum. Change foam dressing to sacrum Q3Days. PLEASE continue to reposition patient from left to right sides Q2H limiting time spent on back to procedures and therapies. USE only one ultrasorb moisture wicking pad underneath patient for moisture. Additional Information: Patient seen on 3 for wound evaluation of sacrum and right lateral heel. Right lateral heel is noted with an adhesive dressing that was removed to reveal a non blanching area of erythema measuring 2cm x 2cm x 0cm indicating a Stage 1 pressure injury. Right lateral heel was skin prepped using Bards skin barrier film and left open to air and floated off mattress surface using pillow underneath calves.Patient stated not wanting to turn to allow technical publications writer to visualize sacral wound. It was explained that this was necessary for proper dressing selection. Patient was assisted to his right side and a foam dressing was partially removed from sacrum to reveal what appears to be a partial skin tear with a purple wound base indicating possibly a previous blood blister that has been partially unroofed. Purple non blanching area on sacrum measures 1cm x 0.5cm x <0.1cm with 50% of the wound bed being open and purple in color. Foam dressing placed back over non draining wound bed. Wound has no odor and no active drainage. Patient was positioned to his right side with a pillow underneath his left side and one ultrasorb moisture wicking pad underneath him. Patient is noted to be laying semi comfortably on a low air loss support surface that was obtained earlier today after speaking with [facility] and RN at bedside with visualization of DTI on sacrum. Gilda Diop [facility] Jul 01, 2017 17:36
[2017-07-02] VITALS (14 sets, daily range): BP systolic 102–124; BP diastolic 53–66; PULSE 70–83; RESP 18–26; TEMP 97.6–99; O2SAT 93–99
[2017-07-02 07:17] LABS: HEMATOCRIT 26.6 % (39.0-51.0); HEMOGLOBIN 8.6 GM/DL (13.0-17.0); MEAN CELL VOLUME 81.1 FL (80.0-100.0); MEAN CORPUSCULAR HEMOGLOBIN 26.1 PG (27.0-34.0); MEAN CORPUSCULAR HGB CONC 32.2 % (32.0-36.0); MEAN PLATELET VOLUME 7.4 FL (7.0-11.0); PLATELET COUNT 223 TH/MM3 (150-450); RED BLOOD COUNT 3.28 MIL/MM3 (4.50-5.90); RED CELL DISTRIBUTION WIDTH 20.4 % (11.6-17.2); WHITE BLOOD COUNT 4.6 TH/MM3 (4.0-11.0)
[2017-07-02 07:52] LABS: BICARBONATE 33.9 MEQ/L (21.0-32.0); CALCIUM 8.7 MG/DL (8.5-10.1); CREATININE 0.49 MG/DL (0.60-1.30)
[2017-07-02] MEDS: INSULIN ASPART SUPPLEMENTAL SCALE SQ SCH (08:00)
[2017-07-02] MEDS: RESP: BUDESONIDE 0.25 MG/2 ML NEB NEB SCH ×2 (08:08→19:25)
[2017-07-02] MEDS: SODIUM CHLORIDE 0.9% FLUSH 10 ML FLUSH IV FLUSH SCH ×2 (08:13→20:56)
[2017-07-02] MEDS: FUROSEMIDE 40 MG/4 ML VIAL IV PUSH SCH ×2 (08:13→18:00)
[2017-07-02] MEDS: DOCUSATE SODIUM 50 MG/SENNA 8.6 MG TAB PO SCH ×2 (08:14→20:55)
--- NOTE | 2017-07-02 09:20 | HHI.CCPN ---
Subjective Remarks/Hospital Course Hospital Course: This is a 71-year-old male initially brought to the emergency department on with right hip pain, noted to have hip fracture. However, inpatient he was in hypercarbic respiratory distress and placed on BiPAP. He underwent operative fixation of his hip today and was extubated the end of the case. In PACU, he was persistently somnolent and ABG was drawn which demonstrates severe hyper cardiac respiratory failure with a primary respiratory acidosis and a pH of 7. He was emergently reintubated. He was transferred to the ICU intubated. No additional information is available from patient. Review of systems is unobtainable. The remainder of the history is obtained from medical record. Subjective: 06/29: abg improving. will start SBTs. remains in steroids. appears slightly volume overloaded. may need to be weaned from mechanical ventilation to BiPAP. 06/30: Lungs clearing. Peripheral perfusion acceptable. Gas exchange acceptable. 07/01: Much more alert today and breathing comfortably on spontaneous breathing trials. Requiring moderately increased pressure support at 12. Will attempt to extubate today. 07/02: Extubated 24 hours ago and continues to breathe comfortably. Strong cough effort. Mild edema persists. Week. Continue PT and OT evaluation and treatment. Continue aggressive diuresis until down to his preop weight. Objective Vital Signs Date Time Temp Pulse Resp B/P (MAP) Pulse Ox O2 Delivery O2 Flow Rate FiO2 07/02/17 08:00 73 07/02/17 08:00 98.0 26 111/53 (72) 97 07/02/17 07:50 Nasal Cannula 3.00 07/01/17 08:00 35 Intake and Output 07/02/17 07/02/17 07/03/17 08:00 16:00 00:00 Intake Total 978 ml Output Total 1000 ml Balance -22 ml Result Diagram: 07/02/17 0630 07/02/17 0630 Imaging Last Impressions Femur X-Ray 06/28/17 0000 Signed Impressions: Service Date/Time: Wednesday, June 28, 2017 08:35 - CONCLUSION: Anatomic alignment. Michele Bella MD FACR Chest X-Ray 06/28/17 0000 Signed Impressions: Service Date/Time: Wednesday, June 28, 2017 14:34 - CONCLUSION: Satisfactory ET tube positioning. Worsening CHF Claudio Lemus MD Pelvis X-Ray 06/26/17 1046 Signed Impressions: Service Date/Time: June 11:12 - CONCLUSION: Acute oblique fracture the proximal femoral shaft on the right. Claudio Klein MD Objective Remarks GENERAL: Elderly male, lying in bed HEENT: Normocephalic. Atraumatic. Pupils equal, round, reactive, conjugate. Mucous membranes are moist NECK: Trachea is midline. CHEST: No adventitious sounds. Comfortable pattern. CARDIOVASCULAR: Normal rate, regular rhythm. No JVD. ABDOMEN: Soft, nontender, nondistended. No guarding. BS active. MUSCULOSKELETAL: Pulses 2+. No peripheral edema. Dressings over right hip, dry , clean. NEUROLOGICAL: RASS 0. Moves all extremities. No focal deficits. Conversant, cooperative, alert. A/P Assessment and Plan Assessment: Active problems: Acute perioperative hypercarbic and hypoxic respiratory failure Acute COPD exacerbation Total body volume overload Acute metabolic encephalopathy: Secondary to hypercarbia and CO2 narcosis Plan: remain in ICU Frequent neurochecks Propofol for goal RASS 0 Vent bundle Elevated Head of bed Nebs IV steroids, taper Wean FiO2 for goal SPO2 greater than 90% start daily SBTs A.m. ABG d/c mivf. Daily CBC, BMP PPI, SCDs, pharmacologic DVT prophylaxis when okay with surgeon Swallow evaluation Has not needed BiPAP support. Continue OT, PT evaluation and treatment Overall impression: PA hypertension, TR sounds like backward failure, possibly exacerbated by chronic hypoxemia. Bilateral effusions. Continue diuresis as ordered. Increase activity. Miguel Betts MD Jul 02, 2017 09:20
[2017-07-02] MEDS: PANTOPRAZOLE SODIUM 40 MG VIAL IV PUSH SCH (15:48)
[2017-07-02] MEDS: oxyCODONE HCL ORAL CONC 5 MG/0.25 ML SYRINGE PO PRN (20:55)
[2017-07-03] VITALS (9 sets, daily range): BP systolic 113–135; BP diastolic 56–61; PULSE 71–95; RESP 17–19; TEMP 97.2–98.5; O2SAT 96–99
[2017-07-03] MEDS: oxyCODONE HCL ORAL CONC 5 MG/0.25 ML SYRINGE PO PRN ×3 (01:20→18:20)
[2017-07-03 06:43] LABS: AUTOMATED NEUTROPHIL # 3.9 TH/MM3 (1.8-7.7); BASOPHIL % 0.7 % (0.0-2.0); EOSINOPHIL # 0.1 TH/MM3 (0-0.4); EOSINOPHIL % 2.2 % (0.0-4.0); HEMATOCRIT 29.2 % (39.0-51.0); HEMOGLOBIN 9.2 GM/DL (13.0-17.0); LYMPH % 10.6 % (9.0-44.0); LYMPHOCYTE # 0.5 TH/MM3 (1.0-4.8); MEAN CELL VOLUME 81.7 FL (80.0-100.0); MEAN CORPUSCULAR HEMOGLOBIN 25.8 PG (27.0-34.0); MEAN CORPUSCULAR HGB CONC 31.5 % (32.0-36.0); MEAN PLATELET VOLUME 7.2 FL (7.0-11.0); MONOCYTE # 0.5 TH/MM3 (0-0.9); NEUT % 77.5 % (16.0-70.0); PLATELET COUNT 228 TH/MM3 (150-450); RED BLOOD COUNT 3.58 MIL/MM3 (4.50-5.90); RED CELL DISTRIBUTION WIDTH 20.2 % (11.6-17.2); WHITE BLOOD COUNT 5.1 TH/MM3 (4.0-11.0)
[2017-07-03 07:14] LABS: ALBUMIN 2.3 GM/DL (3.4-5.0); AST (GOT) 25 U/L (15-37); BLOOD UREA NITROGEN 19 MG/DL (7-18); CALCIUM 9.1 MG/DL (8.5-10.1); CHLORIDE 103 MEQ/L (98-107); CREATININE 0.52 MG/DL (0.60-1.30); GLOMERULAR FILTRATION RATE 156 ML/MIN (>89); GLUCOSE,RANDOM 105 MG/DL (74-106); MAGNESIUM 1.9 MG/DL (1.5-2.5); SODIUM (NA) 142 MEQ/L (136-145)
[2017-07-03 07:16] LABS: ALT (GPT) 9 U/L (12-78); PHOSPHORUS 1.9 MG/DL (2.5-4.9)
[2017-07-03 07:25] LABS: ALKALINE PHOSPHATASE 101 U/L (45-117); FREE T4 0.85 NG/DL (0.76-1.46); TOTAL BILIRUBIN ADULT 0.5 MG/DL (0.2-1.0); TOTAL PROTEIN 5.9 GM/DL (6.4-8.2)
[2017-07-03] MEDS: RESP: BUDESONIDE 0.25 MG/2 ML NEB NEB SCH ×2 (09:55→21:48)
[2017-07-03] MEDS: FUROSEMIDE 40 MG/4 ML VIAL IV PUSH SCH ×2 (11:06→18:21)
[2017-07-03] MEDS: DOCUSATE SODIUM 50 MG/SENNA 8.6 MG TAB PO SCH ×2 (11:06→21:28)
[2017-07-03] MEDS: SODIUM CHLORIDE 0.9% FLUSH 10 ML FLUSH IV FLUSH SCH ×2 (11:07→21:28)
--- NOTE | 2017-07-03 11:34 | HHI.PR ---
Subjective Remarks Follow up femur fracture, post extubation on 07/01. Patient laying in bed in no distress. NGT with tube feeding, states he is doing ok eating as long as someone sets him up to eat. No chest pain. Unsure if son wants him to go to a rehab but knows he can not be home by himself. Objective Vitals Vital Signs Date Time Temp Pulse Resp B/P (MAP) Pulse Ox O2 Delivery O2 Flow Rate FiO2 07/03/17 09:56 97 Nasal Cannula 2.00 07/03/17 08:00 97.2 71 18 113/60 (77) 99 07/03/17 04:00 97.2 73 18 118/56 (76) 96 07/03/17 03:17 96 Nasal Cannula 2.00 07/03/17 00:00 98.5 95 17 135/60 (85) 96 07/03/17 00:00 95 07/02/17 22:00 73 07/02/17 20:00 99.0 73 19 115/56 (75) 96 07/02/17 20:00 73 07/02/17 19:27 99 Nasal Cannula 2.00 07/02/17 18:00 73 07/02/17 16:00 99.0 75 21 124/58 (80) 98 07/02/17 16:00 83 07/02/17 14:00 77 07/02/17 12:00 75 07/02/17 12:00 99.0 72 21 122/66 (84) 98 07/02/17 11:36 20 I/O 07/02/17 07/02/17 07/02/17 07/03/17 07/03/17 07/03/17 07:00 15:00 23:00 07:00 15:00 23:00 Intake Total 978 ml 927 ml 120 ml Output Total 1000 ml 1200 ml 1600 ml Balance -22 ml -273 ml -1480 ml Intake Oral 360 ml 120 ml IV Total 80 ml Tube Feeding 918 ml 487 ml Other 60 ml Output Urine Total 1000 ml 1200 ml 1600 ml # Bowel Movements 0 0 Result Diagram: 07/03/17 0550 07/03/17 0550 Imaging Last Impressions Abdomen X-Ray 06/29/17 0000 Signed Impressions: Service Date/Time: Thursday, June 29, 2017 14:02 - CONCLUSION: Weighted feeding tube extends well down into the stomach Claudio Lemus MD Femur X-Ray 06/28/17 0000 Signed Impressions: Service Date/Time: Wednesday, June 28, 2017 08:35 - CONCLUSION: Anatomic alignment. Michele Bella MD FACR Chest X-Ray 06/28/17 0000 Signed Impressions: Service Date/Time: Wednesday, June 28, 2017 14:34 - CONCLUSION: Satisfactory ET tube positioning. Worsening CHF Claudio Lemus MD Pelvis X-Ray 06/26/17 1046 Signed Impressions: Service Date/Time: June 11:12 - CONCLUSION: Acute oblique fracture the proximal femoral shaft on the right. Claudio Klein MD Objective Remarks GENERAL: SKIN: Warm and dry. HEAD: Atraumatic. Normocephalic. EYES: Pupils equal and round. No scleral icterus. No injection or drainage. ENT: No nasal bleeding or discharge. Mucous membranes pink and moist. NECK: Trachea midline. No JVD. CARDIOVASCULAR: Regular rate and rhythm. RESPIRATORY: No accessory muscle use. Clear to auscultation. Breath sounds equal bilaterally. GASTROINTESTINAL: Abdomen soft, non-tender, nondistended. Hepatic and splenic margins not palpable. NG tube in place currently with tube feeding MUSCULOSKELETAL: Extremities without clubbing, cyanosis, or edema. No obvious deformities. NEUROLOGICAL: Awake and alert. No obvious cranial nerve deficits. Motor grossly within normal limits. Limited range of motion to the right lower extremity. normal speech. PSYCHIATRIC: Appropriate mood and affect; insight and judgment normal. Medications and IVs Current Medications Medications (Trade) Dose Ordered Sig/Jesi Route Start Time Stop Time Status Last Admin (Catapres) 0.1 mg Q4H PRN PO 06/26/17 14:30 (Tylenol) 650 mg Q4H PRN PO 06/26/17 14:30 07/02/17 10:36 (Zofran Inj) 4 mg Q6H PRN IVP 06/26/17 14:30 (Reglan Inj) 5 mg Q6H PRN IV PUSH 06/26/17 14:30 (Tylenol) 650 mg Q6H PRN PO 06/26/17 14:30 (Narcan Inj) 0.4 mg UNSCH PRN IV PUSH 06/26/17 14:30 (Francie-Colace) 1 tab BID PO 06/26/17 21:00 07/03/17 11:06 (Milk Of Magnesia Liq) 30 ml Q12H PRN PO 06/26/17 14:30 (Senokot) 17.2 mg Q12H PRN PO 06/26/17 14:30 (Dulcolax Supp) 10 mg DAILY PRN RECTAL 06/26/17 14:30 (Lactulose Liq) 30 ml DAILY PRN PO 06/26/17 14:30 (Protonix Inj) 40 mg Q24H IV PUSH 06/26/17 16:00 07/02/17 15:48 Miscellaneous Information Patient in critical care unit? Ass... Q361D .XX 06/27/17 00:15 06/27/17 00:15 (NS Flush) 2 ml UNSCH PRN IV FLUSH 06/28/17 10:15 (NS Flush) 2 ml BID IV FLUSH 06/28/17 21:00 07/03/17 11:07 Cefazolin Sodium 1000 mg/Sodium Chloride 100 ml @ 200 mls/hr Q8H IV 06/28/17 16:00 07/03/17 08:00 (Dilaudid Pf Inj) 0.5 mg Q3H PRN IV PUSH 06/28/17 21:15 07/01/17 08:49 (Pulmicort Respule Neb) 0.25 mg Q12HR NEB NEB 06/29/17 09:00 07/03/17 09:55 (Roxicodone Intensol Liq) 5 mg Q4H PRN PO 06/29/17 10:00 07/03/17 11:16 (Lasix Inj) 40 mg BID@18 IV PUSH 06/30/17 09:00 07/03/17 11:06 Urinary Catheter: No Vascular Central Line Catheter: No A/P Problem List: (1) H/O gastric bypass ICD Code: Z98.84 - Bariatric surgery status (2) Hypertension ICD Code: I10 - Essential (primary) hypertension (3) Atrial fibrillation ICD Code: I48.91 - Unspecified atrial fibrillation (4) Closed right femoral fracture ICD Code: S72.91XA - Unspecified fracture of right femur, initial encounter for closed fracture Status: Acute (5) Hyperlipidemia ICD Code: E78.5 - Hyperlipidemia, unspecified Assessment and Plan Right hip fracture -Orthopedics following, recommends partial weightbearing 50% of the right lower extremity, follow-up with Orth O in 2 weeks -Pain control -Continue physical therapy Acute hypoxic respiratory failure, resolved -Oxygen as needed -Incentive spirometer ordered Hypertension, chronic -Resume home medications, monitor vitals clonidine as needed A. fib, chronic patient with AICD -Monitor telemetry Nutritional deficit, likely due to intubation -Hold tube feeding, diet per speech therapy, consult dietitian for calorie counts -We will resume tube feeding at bedtime if patient needs extra calories DVT prophylaxis: Lovenox per orthopedics Discharge Planning Patient needs SNF placement. Problem Qualifiers (1) Closed right femoral fracture: Qualified Codes: S72.91XA - Unspecified fracture of right femur, initial encounter for closed fracture Ekaterina Murry Jul 03, 2017 11:34
--- NOTE | 2017-07-03 11:57 | PD.ORT.PN ---
Subjective Subjective Remarks Patient has been extubated and doing well. Reports pain relatively well controlled. Reports difficulty with mobilization yesterday with PT. Objective Vitals Vital Signs Date Time Temp Pulse Resp B/P (MAP) Pulse Ox O2 Delivery O2 Flow Rate FiO2 07/03/17 11:36 97.8 72 18 119/61 (80) 98 07/03/17 09:56 97 Nasal Cannula 2.00 07/03/17 08:00 97.2 71 18 113/60 (77) 99 07/03/17 04:00 97.2 73 18 118/56 (76) 96 07/03/17 03:17 96 Nasal Cannula 2.00 07/03/17 00:00 98.5 95 17 135/60 (85) 96 07/03/17 00:00 95 07/02/17 22:00 73 07/02/17 20:00 99.0 73 19 115/56 (75) 96 07/02/17 20:00 73 07/02/17 19:27 99 Nasal Cannula 2.00 07/02/17 18:00 73 07/02/17 16:00 99.0 75 21 124/58 (80) 98 07/02/17 16:00 83 07/02/17 14:00 77 07/02/17 12:00 75 07/02/17 12:00 99.0 72 21 122/66 (84) 98 I/O 07/02/17 07/02/17 07/02/17 07/03/17 07/03/17 07/03/17 07:00 15:00 23:00 07:00 15:00 23:00 Intake Total 978 ml 927 ml 120 ml Output Total 1000 ml 1200 ml 1600 ml Balance -22 ml -273 ml -1480 ml Intake Oral 360 ml 120 ml IV Total 80 ml Tube Feeding 918 ml 487 ml Other 60 ml Output Urine Total 1000 ml 1200 ml 1600 ml # Bowel Movements 0 0 Result Diagram: 07/03/17 0550 07/03/17 0550 Imaging Last 24 hours Impressions Pelvis X-Ray 06/26/17 1046 Signed Impressions: Service Date/Time: June 11:12 - CONCLUSION: Acute oblique fracture the proximal femoral shaft on the right. Claudio Klein MD Femur X-Ray 06/26/17 1046 Signed Impressions: Service Date/Time: June 11:14 - CONCLUSION: Oblique fracture through the proximal right femoral shaft. Claudio Klein MD Chest X-Ray 06/26/17 1046 Signed Impressions: Service Date/Time: June 11:24 - CONCLUSION: 1. No significant pneumothorax or effusion. 2. Cardiomegaly with slight positive fluid balance. 3. Minimal atelectasis in the left midlung zone. 4. Suspect old inferior right rib fracture. Freddie Yuen MD Objective Remarks Awake, alert, NAD Right lower extremity: Dressings in place without any significant drainage. + EHL/FHL/DF/PF. Sensation appears grossly intact. Negative Homans. BCR Assessment & Plan Assessment and Plan 1) Right Subtrochanteric Femur Fx, POD#5 s/p IMN R femur 1. Partial weightbearing 50% right lower extremity 2. PT for mobilization once patient is able to be extubated and mobilized 3. Lovenox for DVT prophylaxis 4. Patient will require placement upon discharge. Follow-up with Dr. Sanchez in 2 weeks. Natalia Sanchez MD Jul 03, 2017 11:57
[2017-07-03 17:58] LABS: HEMOGLOBIN A1C 5.3 % (4.3-6.0)
[2017-07-03] MEDS: PANTOPRAZOLE SODIUM 40 MG VIAL IV PUSH SCH (18:21)
[2017-07-03 20:25] LABS: FREE T3 1.33 PG/ML (2.18-3.98); FREE T4 0.86 NG/DL (0.76-1.46)
[2017-07-04] VITALS: BP 119/61; PULSE 75; RESP 16; TEMP 97.6; O2SAT 98
[2017-07-04] MEDS: oxyCODONE HCL ORAL CONC 5 MG/0.25 ML SYRINGE PO PRN ×4 (00:48→18:27)
[2017-07-04 05:07] LABS: AUTOMATED NEUTROPHIL # 3.9 TH/MM3 (1.8-7.7); BASOPHIL % 0.8 % (0.0-2.0); EOSINOPHIL # 0.1 TH/MM3 (0-0.4); EOSINOPHIL % 2.6 % (0.0-4.0); HEMATOCRIT 29.4 % (39.0-51.0); HEMOGLOBIN 9.2 GM/DL (13.0-17.0); LYMPH % 11.7 % (9.0-44.0); LYMPHOCYTE # 0.6 TH/MM3 (1.0-4.8); MEAN CELL VOLUME 81.8 FL (80.0-100.0); MEAN CORPUSCULAR HEMOGLOBIN 25.7 PG (27.0-34.0); MEAN CORPUSCULAR HGB CONC 31.4 % (32.0-36.0); MEAN PLATELET VOLUME 7.4 FL (7.0-11.0); MONOCYTE # 0.5 TH/MM3 (0-0.9); NEUT % 74.9 % (16.0-70.0); PLATELET COUNT 239 TH/MM3 (150-450); RED CELL DISTRIBUTION WIDTH 20.4 % (11.6-17.2); WHITE BLOOD COUNT 5.2 TH/MM3 (4.0-11.0)
[2017-07-04 05:24] LABS: BICARBONATE 38.1 MEQ/L (21.0-32.0); CALCIUM 8.8 MG/DL (8.5-10.1); CREATININE 0.51 MG/DL (0.60-1.30)
[2017-07-04 08:00] VITALS: BP 121/70; PULSE 74; RESP 20; TEMP 97.6; O2SAT 95
[2017-07-04] MEDS: DOCUSATE SODIUM 50 MG/SENNA 8.6 MG TAB PO SCH ×2 (08:46→20:25)
[2017-07-04] MEDS: FUROSEMIDE 40 MG/4 ML VIAL IV PUSH SCH ×2 (08:47→17:05)
[2017-07-04] MEDS: RESP: BUDESONIDE 0.25 MG/2 ML NEB NEB SCH ×2 (08:52→20:00)
[2017-07-04] MEDS: SODIUM CHLORIDE 0.9% FLUSH 10 ML FLUSH IV FLUSH SCH ×2 (08:53→20:25)
[2017-07-04 12:00] VITALS: BP 120/58; PULSE 72; RESP 18; TEMP 97.6; O2SAT 97
[2017-07-04 16:00] VITALS: BP 122/60; PULSE 73; RESP 16; TEMP 97.8; O2SAT 97
--- NOTE | 2017-07-04 16:08 | HHI.PR ---
Subjective Remarks Patient laying in bed, denies any discomfort. States he is eating well and would like the ngt out. He states all he needs is his meals cut up and he can eat it all. no distress noted. Objective Vitals Vital Signs Date Time Temp Pulse Resp B/P (MAP) Pulse Ox O2 Delivery O2 Flow Rate FiO2 07/04/17 12:00 97.6 72 18 120/58 (78) 97 07/04/17 08:54 Nasal Cannula 2.00 07/04/17 08:00 97.6 74 20 121/70 (87) 95 07/04/17 00:00 97.6 75 16 119/61 (80) 98 07/03/17 21:49 98 Nasal Cannula 2.00 07/03/17 20:00 98.1 73 18 114/57 (76) 96 I/O 07/03/17 07/03/17 07/03/17 07/04/17 07/04/17 07/04/17 07:00 15:00 23:00 07:00 15:00 23:00 Intake Total 120 ml 100 ml 682 ml 240 ml 100 ml Output Total 1600 ml 1700 ml Balance -1480 ml 100 ml 682 ml -1460 ml 100 ml Intake Oral 120 ml 240 ml IV Total 100 ml 100 ml 100 ml Tube Feeding 582 ml Output Urine Total 1600 ml 1700 ml # Bowel Movements 0 0 Result Diagram: 07/04/1741907/04/17419 Objective Remarks GENERAL: SKIN: Warm and dry. HEAD: Atraumatic. Normocephalic. EYES: Pupils equal and round. No scleral icterus. No injection or drainage. ENT: No nasal bleeding or discharge. Mucous membranes pink and moist. NECK: Trachea midline. No JVD. CARDIOVASCULAR: Regular rate and rhythm. RESPIRATORY: No accessory muscle use. Clear to auscultation. Breath sounds equal bilaterally. GASTROINTESTINAL: Abdomen soft, non-tender, nondistended. Hepatic and splenic margins not palpable. NG tube in place currently with tube feeding MUSCULOSKELETAL: Extremities without clubbing, cyanosis, or edema. No obvious deformities. NEUROLOGICAL: Awake and alert. No obvious cranial nerve deficits. Motor grossly within normal limits. Limited range of motion to the right lower extremity. normal speech. PSYCHIATRIC: Appropriate mood and affect; insight and judgment normal. Medications and IVs Current Medications Medications (Trade) Dose Ordered Sig/Jesi Route Start Time Stop Time Status Last Admin (Catapres) 0.1 mg Q4H PRN PO 06/26/17 14:30 (Tylenol) 650 mg Q4H PRN PO 06/26/17 14:30 07/02/17 10:36 (Zofran Inj) 4 mg Q6H PRN IVP 06/26/17 14:30 (Reglan Inj) 5 mg Q6H PRN IV PUSH 06/26/17 14:30 (Tylenol) 650 mg Q6H PRN PO 06/26/17 14:30 (Narcan Inj) 0.4 mg UNSCH PRN IV PUSH 06/26/17 14:30 (Francie-Colace) 1 tab BID PO 06/26/17 21:00 07/04/17 08:46 (Milk Of Magnesia Liq) 30 ml Q12H PRN PO 06/26/17 14:30 (Senokot) 17.2 mg Q12H PRN PO 06/26/17 14:30 (Dulcolax Supp) 10 mg DAILY PRN RECTAL 06/26/17 14:30 (Lactulose Liq) 30 ml DAILY PRN PO 06/26/17 14:30 (Protonix Inj) 40 mg Q24H IV PUSH 06/26/17 16:00 07/03/17 18:21 Miscellaneous Information Patient in critical care unit? Ass... Q361D .XX 06/27/17 00:15 06/27/17 00:15 (NS Flush) 2 ml UNSCH PRN IV FLUSH 06/28/17 10:15 (NS Flush) 2 ml BID IV FLUSH 06/28/17 21:00 07/04/17 08:53 Cefazolin Sodium 1000 mg/Sodium Chloride 100 ml @ 200 mls/hr Q8H IV 06/28/17 16:00 07/04/17 08:47 (Dilaudid Pf Inj) 0.5 mg Q3H PRN IV PUSH 06/28/17 21:15 07/01/17 08:49 (Pulmicort Respule Neb) 0.25 mg Q12HR NEB NEB 06/29/17 09:00 07/04/17 08:52 (Roxicodone Intensol Liq) 5 mg Q4H PRN PO 06/29/17 10:00 4/20/18 13:53 (Lasix Inj) 40 mg BID@ IV PUSH 06/30/17 09:00 07/04/17 08:47 A/P Problem List: (1) H/O gastric bypass ICD Code: Z98.84 - Bariatric surgery status (2) Hypertension ICD Code: I10 - Essential (primary) hypertension (3) Atrial fibrillation ICD Code: I48.91 - Unspecified atrial fibrillation (4) Closed right femoral fracture ICD Code: S72.91XA - Unspecified fracture of right femur, initial encounter for closed fracture Status: Acute (5) Hyperlipidemia ICD Code: E78.5 - Hyperlipidemia, unspecified Assessment and Plan Right hip fracture -Orthopedics following, recommends partial weightbearing 50% of the right lower extremity, follow-up with Orth O in 2 weeks -Pain control -Continue physical therapy Acute hypoxic respiratory failure, resolved -Oxygen as needed -Incentive spirometer ordered Hypertension, chronic -Resume home medications, monitor vitals clonidine as needed A. fib, chronic patient with AICD -Monitor telemetry Nutritional deficit, likely due to intubation, improving -Mechanical soft diet per speech therapy, consult dietitian for calorie counts -D/c NGT patient is eating better DVT prophylaxis: Lovenox per orthopedics Discharge Planning Patient needs SNF placement. Problem Qualifiers (1) Closed right femoral fracture: Qualified Codes: S72.91XA - Unspecified fracture of right femur, initial encounter for closed fracture Ekaterina Murry Jul 04, 2017 16:08
[2017-07-04] MEDS: PANTOPRAZOLE SODIUM 40 MG VIAL IV PUSH SCH (17:03)
[2017-07-04 20:00] VITALS: BP 123/60; PULSE 73; RESP 18; TEMP 97.5; O2SAT 98
[2017-07-04 20:41] VITALS: O2SAT 96
[2017-07-05] VITALS (9 sets, daily range): BP systolic 117–128; BP diastolic 56–60; PULSE 70–80; RESP 18; TEMP 97.4–98; O2SAT 95–98
[2017-07-05 05:57] LABS: AUTOMATED NEUTROPHIL # 4.1 TH/MM3 (1.8-7.7); BASOPHIL % 0.7 % (0.0-2.0); EOSINOPHIL # 0.1 TH/MM3 (0-0.4); EOSINOPHIL % 1.8 % (0.0-4.0); HEMATOCRIT 31.1 % (39.0-51.0); HEMOGLOBIN 9.8 GM/DL (13.0-17.0); LYMPH % 9.2 % (9.0-44.0); LYMPHOCYTE # 0.5 TH/MM3 (1.0-4.8); MEAN CELL VOLUME 82.4 FL (80.0-100.0); MEAN CORPUSCULAR HGB CONC 31.6 % (32.0-36.0); MEAN PLATELET VOLUME 7.5 FL (7.0-11.0); MONO % 10.8 % (0.0-8.0); MONOCYTE # 0.6 TH/MM3 (0-0.9); NEUT % 77.5 % (16.0-70.0); PLATELET COUNT 247 TH/MM3 (150-450); RED BLOOD COUNT 3.77 MIL/MM3 (4.50-5.90); RED CELL DISTRIBUTION WIDTH 19.6 % (11.6-17.2); WHITE BLOOD COUNT 5.3 TH/MM3 (4.0-11.0)
[2017-07-05 06:11] LABS: BICARBONATE 38.6 MEQ/L (21.0-32.0); CALCIUM 9.3 MG/DL (8.5-10.1); CREATININE 0.54 MG/DL (0.60-1.30)
[2017-07-05] MEDS: oxyCODONE HCL ORAL CONC 5 MG/0.25 ML SYRINGE PO PRN ×2 (06:15→13:03)
[2017-07-05] MEDS: RESP: BUDESONIDE 0.25 MG/2 ML NEB NEB SCH ×2 (08:28→21:12)
[2017-07-05] MEDS: SODIUM CHLORIDE 0.9% FLUSH 10 ML FLUSH IV FLUSH SCH ×2 (09:00→20:59)
[2017-07-05] MEDS: DOCUSATE SODIUM 50 MG/SENNA 8.6 MG TAB PO SCH ×2 (09:00→20:59)
[2017-07-05] MEDS: FUROSEMIDE 40 MG/4 ML VIAL IV PUSH SCH ×2 (09:36→18:42)
[2017-07-05] MEDS ORDERED: OXYC-392 PO (15:10)
[2017-07-05] MEDS ORDERED: FURO1TAB60 PO (15:10)
[2017-07-05] MEDS ORDERED: POTA10CA PO (15:10)
[2017-07-05] MEDS ORDERED: XARE10TA PO (15:13)
--- NOTE | 2017-07-05 15:22 | HHI.DS ---
Discharge Summary Admission Date Jun 26, 2017 at 13:28 Discharge Date: Jul 05, 2017 Admitting Diagnosis Proximal right femur fracture (1) H/O gastric bypass ICD Code: Z98.84 - Bariatric surgery status Diagnosis: Secondary (2) Hypertension ICD Code: I10 - Essential (primary) hypertension Diagnosis: Secondary (3) Atrial fibrillation ICD Code: I48.91 - Unspecified atrial fibrillation Diagnosis: Secondary (4) Closed right femoral fracture ICD Code: S72.91XA - Unspecified fracture of right femur, initial encounter for closed fracture Diagnosis: Principal Status: Acute (5) Hyperlipidemia ICD Code: E78.5 - Hyperlipidemia, unspecified Procedures s/p Intramedullary nailing right subtrochanteric femur fracture s/p intubation/extubation post op Brief History - From Admission Patient is a 71-year-old male who was initially brought to the emergency department from [place] in [facility] for a right hip pain. Patient was noted to be discharged from possibly a rehab center in [facility] where he spent 5 weeks due to leg weakness. Patient was going down the stairs earlier today when he fell off the landing and landed on his right hip. Complains of right hip pain and inability to ambulate. Has pain in the right hip that goes down the right leg to the right knee patient denied any issue of loss of consciousness or head injury during the fall. Denies any neck pain he denies any chest pain or any shortness of breath denies any abdominal pain patient states that he goes to [facility] but has not been there in a while. Patient states she has never been a [facility] ever patient does not know any of his medications does not have a medication list has some pain. Had been medicated by EMS prior to arrival She is a very poor historian CBC/BMP: 07/05/17 0452 07/05/17 0452 Significant Findings Laboratory Tests Test 07/03/17 05:50 07/04/17 04:20 07/05/17 04:52 Red Blood Count 3.58 MIL/MM3 (4.50-5.90) 3.60 MIL/MM3 (4.50-5.90) 3.77 MIL/MM3 (4.50-5.90) Hemoglobin 9.2 GM/DL (13.0-17.0) 9.2 GM/DL (13.0-17.0) 9.8 GM/DL (13.0-17.0) Hematocrit 29.2 % (39.0-51.0) 29.4 % (39.0-51.0) 31.1 % (39.0-51.0) Mean Corpuscular Hemoglobin 25.8 PG (27.0-34.0) 25.7 PG (27.0-34.0) 26.0 PG (27.0-34.0) Mean Corpuscular Hemoglobin Concent 31.5 % (32.0-36.0) 31.4 % (32.0-36.0) 31.6 % (32.0-36.0) Red Cell Distribution Width 20.2 % (11.6-17.2) 20.4 % (11.6-17.2) 19.6 % (11.6-17.2) Neutrophils (%) (Auto) 77.5 % (16.0-70.0) 74.9 % (16.0-70.0) 77.5 % (16.0-70.0) Monocytes (%) (Auto) 9.0 % (0.0-8.0) 10.0 % (0.0-8.0) 10.8 % (0.0-8.0) Lymphocytes # (Auto) 0.5 TH/MM3 (1.0-4.8) 0.6 TH/MM3 (1.0-4.8) 0.5 TH/MM3 (1.0-4.8) Blood Urea Nitrogen 19 MG/DL (7-18) 21 MG/DL (7-18) Creatinine 0.52 MG/DL (0.60-1.30) 0.51 MG/DL (0.60-1.30) 0.54 MG/DL (0.60-1.30) Total Protein 5.9 GM/DL (6.4-8.2) Albumin 2.3 GM/DL (3.4-5.0) Phosphorus Level 1.9 MG/DL (2.5-4.9) Alanine Aminotransferase (ALT/SGPT) 9 U/L (12-78) Carbon Dioxide Level 36.0 MEQ/L (21.0-32.0) 38.1 MEQ/L (21.0-32.0) 38.6 MEQ/L (21.0-32.0) Anion Gap 3 MEQ/L (5-15) 3 MEQ/L (5-15) 3 MEQ/L (5-15) Free Triiodothyronine (T3) pg/dL 1.33 PG/ML (2.18-3.98) Thyroid Stimulating Hormone 3rd Gen 3.930 uIU/ML (0.358-3.740) Imaging Last Impressions Abdomen X-Ray 06/29/17 0000 Signed Impressions: Service Date/Time: Thursday, June 29, 2017 14:02 - CONCLUSION: Weighted feeding tube extends well down into the stomach Claudio Lemus MD Femur X-Ray 06/28/17 0000 Signed Impressions: Service Date/Time: Wednesday, June 28, 2017 08:35 - CONCLUSION: Anatomic alignment. Michele Bella MD FACR Chest X-Ray 06/28/17 0000 Signed Impressions: Service Date/Time: Wednesday, June 28, 2017 14:34 - CONCLUSION: Satisfactory ET tube positioning. Worsening CHF Claudio Lemus MD Pelvis X-Ray 06/26/17 1046 Signed Impressions: Service Date/Time: June 11:12 - CONCLUSION: Acute oblique fracture the proximal femoral shaft on the right. Claudio Klein MD PE at Discharge GENERAL: SKIN: Warm and dry. HEAD: Atraumatic. Normocephalic. EYES: Pupils equal and round. No scleral icterus. No injection or drainage. ENT: No nasal bleeding or discharge. Mucous membranes pink and moist. NECK: Trachea midline. No JVD. CARDIOVASCULAR: Regular rate and rhythm. RESPIRATORY: No accessory muscle use. Clear to auscultation. Breath sounds equal bilaterally. GASTROINTESTINAL: Abdomen soft, non-tender, nondistended. Hepatic and splenic margins not palpable. NG tube in place currently with tube feeding MUSCULOSKELETAL: Extremities without clubbing, cyanosis, or edema. No obvious deformities. NEUROLOGICAL: Awake and alert. No obvious cranial nerve deficits. Motor grossly within normal limits. Limited range of motion to the right lower extremity. normal speech. PSYCHIATRIC: Appropriate mood and affect; insight and judgment normal. Pt update on day of discharge pain controlled. no nausea or vomiting. tolerating a diet. concerned about d/c planning. reassured him that plan is to discharge him to rehab and he is agreeable with the plan Hospital Course Admited for Right hip fracture s/p Intramedullary nailing right subtrochanteric femur fracture Orthopedics following, recommends partial weightbearing 50% of the right lower extremity, follow-up with Orth in 2 weeks/ Pt doesn't want too strong pain meds. script for oxycodone written. DVT proph w Xarelto recommended by Dr. Barba, children's institution attendant physician. d/c to rehab. of note: post op In PACU, he was persistently somnolent and ABG was drawn which demonstrates severe hyper cardiac respiratory failure with a primary respiratory acidosis and a pH of 7. He was emergently reintubated. He was transferred to the ICU intubated. Pt was later extubated. ECHO showed EF of 60- 65%, it was noted that pt had elevated pulm pressures. Pt was instructed to f/u w PCP in 1 weeks post discharge. Pt Condition on Discharge: Stable Discharge Disposition: Discharge to SNF Discharge Time: > 30 minutes Discharge Instructions DIET: Follow Instructions for: Heart Healthy Diet Activities you can perform: See Additionl Instruction Other Activity Instructions: Partial weightbearing 50% right lower extremity Follow up Referrals: Orthopedics - 2 Weeks @ [facility] with Natalia Sanchez MD PCP Follow-up - 1 Week New Medications: Oxycodone (Oxycodone) 5 Mg Tab 5 MG PO Q6HR for Pain Management, #30 TAB 0 Refills Rivaroxaban (Xarelto) 10 Mg Tab 10 MG PO DAILY for Blood Clot Prevention, #21 TAB 0 Refills Katty Avila MD Jul 05, 2017 15:22
[2017-07-05] MEDS ORDERED: COLA100C5 PO (15:23)
[2017-07-05] MEDS: RIVAROXABAN 10 MG TAB PO SCH (17:52)
[2017-07-05] MEDS: PANTOPRAZOLE SODIUM 40 MG VIAL IV PUSH SCH (17:53)
[2017-07-06] VITALS (10 sets, daily range): BP systolic 104–123; BP diastolic 53–69; PULSE 73–93; RESP 17–18; TEMP 97.5–98.1; O2SAT 93–99
[2017-07-06 04:57] LABS: HEMATOCRIT 31.4 % (39.0-51.0); MEAN CELL VOLUME 81.3 FL (80.0-100.0); MEAN CORPUSCULAR HEMOGLOBIN 25.9 PG (27.0-34.0); MEAN CORPUSCULAR HGB CONC 31.8 % (32.0-36.0); MEAN PLATELET VOLUME 7.6 FL (7.0-11.0); PLATELET COUNT 268 TH/MM3 (150-450); RED BLOOD COUNT 3.86 MIL/MM3 (4.50-5.90); RED CELL DISTRIBUTION WIDTH 19.8 % (11.6-17.2); WHITE BLOOD COUNT 5.1 TH/MM3 (4.0-11.0)
[2017-07-06 05:19] LABS: BICARBONATE 37.9 MEQ/L (21.0-32.0); CALCIUM 9.1 MG/DL (8.5-10.1); CREATININE 0.47 MG/DL (0.60-1.30)
[2017-07-06] MEDS: RIVAROXABAN 10 MG TAB PO SCH (08:16)
[2017-07-06] MEDS: FUROSEMIDE 40 MG/4 ML VIAL IV PUSH SCH ×2 (08:16→17:11)
[2017-07-06] MEDS: DOCUSATE SODIUM 50 MG/SENNA 8.6 MG TAB PO SCH ×2 (08:19→20:53)
[2017-07-06] MEDS: RESP: BUDESONIDE 0.25 MG/2 ML NEB NEB SCH ×2 (08:24→21:45)
[2017-07-06] MEDS: SODIUM CHLORIDE 0.9% FLUSH 10 ML FLUSH IV FLUSH SCH ×2 (08:43→21:47)
--- NOTE | 2017-07-06 15:46 | HHI.PR ---
Subjective Remarks Patient feels okay, no concerns. No nausea or vomiting. Pain controlled. Objective Vitals Vital Signs Date Time Temp Pulse Resp B/P (MAP) Pulse Ox O2 Delivery O2 Flow Rate FiO2 07/06/17 12:00 97.5 93 18 110/53 (72) 95 07/06/17 08:26 93 Nasal Cannula 1.00 07/06/17 08:12 97.9 73 18 120/57 (78) 97 07/06/17 03:56 76 07/06/17 02:57 98.1 77 18 121/57 (78) 97 07/06/17 00:45 97.9 74 18 104/60 (75) 99 07/05/17 23:52 76 07/05/17 21:48 Nasal Cannula 2.00 07/05/17 21:14 97 Nasal Cannula 2.00 07/05/17 20:05 97.4 73 18 120/57 (78) 95 07/05/17 19:52 80 07/05/17 16:00 97.5 75 18 126/60 (82) 95 I/O 07/05/17 07/05/17 07/05/17 07/06/17 07/06/17 07/06/17 06:59 14:59 22:59 06:59 14:59 22:59 Intake Total 250 ml 100 ml 600 ml 360 ml Output Total 1275 ml 1200 ml 1450 ml 500 ml Balance -1025 ml -1100 ml 600 ml -1090 ml -500 ml Intake Oral 250 ml 600 ml 360 ml IV Total 100 ml Output Urine Total 1275 ml 1200 ml 1450 ml 500 ml # Bowel Movements 0 0 Result Diagram: 07/06/17 0413 07/06/17 0413 Imaging Last Impressions Abdomen X-Ray 06/29/17 0000 Signed Impressions: Service Date/Time: Thursday, June 29, 2017 14:02 - CONCLUSION: Weighted feeding tube extends well down into the stomach Claudio Lemus MD Femur X-Ray 06/28/17 0000 Signed Impressions: Service Date/Time: Wednesday, June 28, 2017 08:35 - CONCLUSION: Anatomic alignment. Michele Bella MD FACR Chest X-Ray 06/28/17 0000 Signed Impressions: Service Date/Time: Wednesday, June 28, 2017 14:34 - CONCLUSION: Satisfactory ET tube positioning. Worsening CHF Claudio Lemus MD Pelvis X-Ray 06/26/17 1046 Signed Impressions: Service Date/Time: June 11:12 - CONCLUSION: Acute oblique fracture the proximal femoral shaft on the right. Claudio Klein MD Objective Remarks GENERAL: laying in bed CARDIOVASCULAR: appears regular, no murmurs. RESPIRATORY: Clear to auscultation. Breath sounds equal bilaterally. No wheezes GASTROINTESTINAL: Abdomen soft, non-tender, nondistended. MUSCULOSKELETAL: Extremities with trace to 1+ edema bilaterally . NEUROLOGICAL: Awake and alert. normal speech Procedures s/p Intramedullary nailing right subtrochanteric femur fracture s/p intubation/extubation post op A/P Problem List: (1) H/O gastric bypass ICD Code: Z98.84 - Bariatric surgery status (2) Hypertension ICD Code: I10 - Essential (primary) hypertension (3) Atrial fibrillation ICD Code: I48.91 - Unspecified atrial fibrillation (4) Closed right femoral fracture ICD Code: S72.91XA - Unspecified fracture of right femur, initial encounter for closed fracture Status: Acute (5) Hyperlipidemia ICD Code: E78.5 - Hyperlipidemia, unspecified Assessment and Plan Admited for Right hip fracture s/p Intramedullary nailing right subtrochanteric femur fracture Orthopedics following, recommends partial weightbearing 50% of the right lower extremity, follow-up with Orth in 2 weeks/ Pt doesn't want too strong pain meds. script for oxycodone written. DVT proph w Xarelto recommended by Dr. Barba, plant control operator physician. d/c to rehab. of note: post op In PACU, he was persistently somnolent and ABG was drawn which demonstrates severe hyper cardiac respiratory failure with a primary respiratory acidosis and a pH of 7. He was emergently reintubated. He was transferred to the ICU intubated. Pt was later extubated. ECHO showed EF of 60- 65%, it was noted that pt had elevated pulm pressures. Pt was instructed to f/u w PCP in 1 weeks post discharge. Discharge Planning Pt was discharged yesterday however, apparently CM waiting on [facility] to come in on Friday. ok to d/c once arrangement are made. No new changes to management. Problem Qualifiers (1) Closed right femoral fracture: Qualified Codes: S72.91XA - Unspecified fracture of right femur, initial encounter for closed fracture Katty Avila MD Jul 06, 2017 15:46
[2017-07-06] MEDS: PANTOPRAZOLE SODIUM 40 MG VIAL IV PUSH SCH (17:11)
[2017-07-07] VITALS (7 sets, daily range): BP systolic 110–135; BP diastolic 59–66; PULSE 70–79; RESP 16–18; TEMP 97.4–98.4; O2SAT 93–96
[2017-07-07] MEDS: RESP: BUDESONIDE 0.25 MG/2 ML NEB NEB SCH ×2 (07:41→19:15)
[2017-07-07] MEDS: SODIUM CHLORIDE 0.9% FLUSH 10 ML FLUSH IV FLUSH SCH ×2 (08:11→21:48)
[2017-07-07] MEDS: RIVAROXABAN 10 MG TAB PO SCH (08:11)
[2017-07-07] MEDS: DOCUSATE SODIUM 50 MG/SENNA 8.6 MG TAB PO SCH ×2 (08:11→21:00)
[2017-07-07] MEDS: FUROSEMIDE 40 MG/4 ML VIAL IV PUSH SCH (08:11)
--- NOTE | 2017-07-07 14:03 | HHI.PR ---
Subjective Remarks Patient reports he is feeling okay. No new issues. Awaiting SNF placement. Objective Vitals Vital Signs Date Time Temp Pulse Resp B/P (MAP) Pulse Ox O2 Delivery O2 Flow Rate FiO2 07/07/17 11:44 74 07/07/17 08:00 97.5 72 18 122/59 (80) 93 07/07/17 07:37 Nasal Cannula 2.00 07/07/17 04:17 98.4 70 16 110/59 (76) 96 07/06/17 23:46 97.7 78 17 107/58 (74) 96 07/06/17 22:40 Room Air 07/06/17 21:45 95 Nasal Cannula 2.00 07/06/17 19:52 73 07/06/17 19:04 97.9 73 18 123/69 (87) 96 I/O 07/06/17 07/06/17 07/06/17 07/07/17 07/07/17 07/07/17 07:00 15:00 23:00 07:00 15:00 23:00 Intake Total 360 ml 600 ml Output Total 1450 ml 500 ml 1950 ml 1300 ml Balance -1090 ml -500 ml -1350 ml -1300 ml Intake Oral 360 ml 600 ml Output Urine Total 1450 ml 500 ml 1950 ml 1300 ml # Bowel Movements 0 1 Result Diagram: 07/06/17 0413 07/06/17412 Objective Remarks GENERAL: No acute distress. CARDIOVASCULAR: appears regular, no murmurs. RESPIRATORY: Clear to auscultation. Breath sounds equal bilaterally. No wheezes GASTROINTESTINAL: Abdomen soft, non-tender, nondistended. MUSCULOSKELETAL: Extremities with trace to 1+ edema bilaterally . NEUROLOGICAL: Awake and alert. normal speech Procedures s/p Intramedullary nailing right subtrochanteric femur fracture s/p intubation/extubation post op A/P Problem List: (1) H/O gastric bypass ICD Code: Z98.84 - Bariatric surgery status (2) Hypertension ICD Code: I10 - Essential (primary) hypertension (3) Atrial fibrillation ICD Code: I48.91 - Unspecified atrial fibrillation (4) Closed right femoral fracture ICD Code: S72.91XA - Unspecified fracture of right femur, initial encounter for closed fracture Status: Acute (5) Hyperlipidemia ICD Code: E78.5 - Hyperlipidemia, unspecified Assessment and Plan 71-year-old male: Admitted for Right hip fracture s/p Intramedullary nailing right subtrochanteric femur fracture Orthopedics following, recommends partial weightbearing 50% of the right lower extremity, follow-up with Orth in 2 weeks. script for oxycodone written. DVT proph w Xarelto recommended by Dr. Barba, studio receptionist physician. d/c to rehab. of note: post op In PACU, he was persistently somnolent and ABG was drawn which demonstrates severe hyper cardiac respiratory failure with a primary respiratory acidosis and a pH of 7. He was emergently reintubated. He was transferred to the ICU intubated. Pt was later extubated. ECHO showed EF of 60- 65%, it was noted that pt had elevated pulm pressures. Pt was instructed to f/u w PCP in 1 weeks post discharge. Discharge Planning Pt discharged to SNF. ok to d/c once arrangement are made. Problem Qualifiers (1) Closed right femoral fracture: Qualified Codes: S72.91XA - Unspecified fracture of right femur, initial encounter for closed fracture Gill Mast MD Jul 07, 2017 14:03
[2017-07-07] MEDS: PANTOPRAZOLE SODIUM 40 MG VIAL IV PUSH SCH (17:40)
[2017-07-08] VITALS (9 sets, daily range): BP systolic 119–143; BP diastolic 58–74; PULSE 70–78; RESP 16–18; TEMP 97.8–98.1; O2SAT 84–99
[2017-07-08] MEDS: DOCUSATE SODIUM 50 MG/SENNA 8.6 MG TAB PO SCH ×2 (08:46→21:00)
[2017-07-08] MEDS: SODIUM CHLORIDE 0.9% FLUSH 10 ML FLUSH IV FLUSH SCH ×2 (08:46→22:36)
[2017-07-08] MEDS: RIVAROXABAN 10 MG TAB PO SCH (08:47)
[2017-07-08] MEDS: RESP: BUDESONIDE 0.25 MG/2 ML NEB NEB SCH ×2 (09:08→20:00)
--- NOTE | 2017-07-08 11:55 | HHI.PR ---
Subjective Remarks Patient reports he is feeling okay. No new issues. Still awaiting placement to SNF. Objective Vitals Vital Signs Date Time Temp Pulse Resp B/P (MAP) Pulse Ox O2 Delivery O2 Flow Rate FiO2 07/08/17 10:00 72 07/08/17 09:08 84 21 07/08/17 09:08 99 Nasal Cannula 3.00 07/08/17 08:00 97.9 74 18 119/74 (89) 92 07/08/17 05:34 98.1 76 16 132/65 (87) 96 07/08/17 02:26 98.1 73 16 130/64 (86) 95 07/07/17 22:10 97.9 79 16 135/60 (85) 96 07/07/17 19:15 96 Nasal Cannula 1.00 07/07/17 16:00 98.1 72 18 121/66 (84) 93 07/07/17 12:00 97.4 74 18 126/65 (85) 95 I/O 07/07/17 07/07/17 07/07/17 07/08/17 07/08/17 07/08/17 06:59 14:59 22:59 06:59 14:59 22:59 Output Total 3000 ml Balance -3000 ml Output Urine Total 3000 ml # Bowel Movements 1 Result Diagram: 07/06/17 0413 07/06/17 041 Objective Remarks GENERAL: No acute distress. CARDIOVASCULAR: appears regular, no murmurs. RESPIRATORY: Clear to auscultation. Breath sounds equal bilaterally. No wheezes GASTROINTESTINAL: Abdomen soft, non-tender, nondistended. MUSCULOSKELETAL: Extremities with trace to 1+ edema bilaterally . NEUROLOGICAL: Awake and alert. normal speech Procedures s/p Intramedullary nailing right subtrochanteric femur fracture s/p intubation/extubation post op A/P Problem List: (1) H/O gastric bypass ICD Code: Z98.84 - Bariatric surgery status (2) Hypertension ICD Code: I10 - Essential (primary) hypertension (3) Atrial fibrillation ICD Code: I48.91 - Unspecified atrial fibrillation (4) Closed right femoral fracture ICD Code: S72.91XA - Unspecified fracture of right femur, initial encounter for closed fracture Status: Acute (5) Hyperlipidemia ICD Code: E78.5 - Hyperlipidemia, unspecified Assessment and Plan 71-year-old male: Admitted for Right hip fracture s/p Intramedullary nailing right subtrochanteric femur fracture Orthopedics following, recommends partial weightbearing 50% of the right lower extremity, follow-up with Orth in 2 weeks. script for oxycodone written. DVT proph w Xarelto recommended by Dr. Barba, environmental educator physician. d/c to rehab. of note: post op In PACU, he was persistently somnolent and ABG was drawn which demonstrates severe hyper cardiac respiratory failure with a primary respiratory acidosis and a pH of 7. He was emergently reintubated. He was transferred to the ICU intubated. Pt was later extubated. ECHO showed EF of 60- 65%, it was noted that pt had elevated pulm pressures. Pt was instructed to f/u w PCP in 1 weeks post discharge. Telemetry reviewed, V pacing. Okay to discontinue telemetry. Discharge Planning Pt discharged to SNF. ok to d/c once arrangement are made. Problem Qualifiers (1) Closed right femoral fracture: Qualified Codes: S72.91XA - Unspecified fracture of right femur, initial encounter for closed fracture Gill Mast MD Jul 08, 2017 11:55
[2017-07-08] MEDS ORDERED: HYDROmorphone HCL PF 0.5 MG/0.5 ML SYRINGE IV PUSH PRN (12:00)
[2017-07-08] MEDS: PANTOPRAZOLE SODIUM 40 MG VIAL IV PUSH SCH (16:01)
[2017-07-09] VITALS: BP 135/67; PULSE 73; RESP 18; TEMP 97.8; O2SAT 97
[2017-07-09 08:00] VITALS: BP 128/61; PULSE 74; RESP 22; TEMP 98.1; O2SAT 99
[2017-07-09] MEDS: RESP: BUDESONIDE 0.25 MG/2 ML NEB NEB SCH ×2 (08:00→20:04)
[2017-07-09] MEDS: DOCUSATE SODIUM 50 MG/SENNA 8.6 MG TAB PO SCH ×2 (09:00→20:18)
[2017-07-09] MEDS: RIVAROXABAN 10 MG TAB PO SCH (09:00)
[2017-07-09 09:02] VITALS: O2SAT 95
[2017-07-09 12:00] VITALS: BP 112/54; PULSE 73; RESP 20; TEMP 97.2; O2SAT 95
--- NOTE | 2017-07-09 12:49 | HHI.PR ---
Subjective Remarks Has had surgery already. Awaits SNF placement in [facility] No current new complaints Seen sitting in the chair Still has Proctor catheter in place Objective Vitals Vital Signs Date Time Temp Pulse Resp B/P (MAP) Pulse Ox O2 Delivery O2 Flow Rate FiO2 07/09/17 09:02 Nasal Cannula 3.00 21 07/09/17 08:00 98.1 74 22 128/61 (83) 99 07/09/17 00:00 97.8 73 18 135/67 (89) 97 07/08/17 20:01 96 Nasal Cannula 3.00 07/08/17 20:00 97.8 73 18 122/61 (81) 99 07/08/17 16:00 97.8 70 18 127/58 (81) 96 I/O 07/08/17 07/08/17 07/08/17 07/09/17 07/09/17 07/09/17 07:00 15:00 23:00 07:00 15:00 23:00 Intake Total 480 ml 240 ml Output Total 2000 ml 600 ml Balance -1520 ml -360 ml Intake Oral 480 ml 240 ml Output Urine Total 2000 ml 600 ml # Bowel Movements 0 1 Result Diagram: 07/06/17 0413 07/06/17 0413 Imaging Last Impressions Abdomen X-Ray 06/29/17 0000 Signed Impressions: Service Date/Time: Thursday, June 29, 2017 14:02 - CONCLUSION: Weighted feeding tube extends well down into the stomach Claudio Lemus MD Femur X-Ray 06/28/17 0000 Signed Impressions: Service Date/Time: Wednesday, June 28, 2017 08:35 - CONCLUSION: Anatomic alignment. Michele Bella MD FACR Chest X-Ray 06/28/17 0000 Signed Impressions: Service Date/Time: Wednesday, June 28, 2017 14:34 - CONCLUSION: Satisfactory ET tube positioning. Worsening CHF Claudio Lemus MD Pelvis X-Ray 06/26/17 1046 Signed Impressions: Service Date/Time: June 11:12 - CONCLUSION: Acute oblique fracture the proximal femoral shaft on the right. Claudio Klein MD Objective Remarks GENERAL: Awake alert oriented 3 talkative and cooperative appears stated age SKIN: Warm and dry. HEAD: Atraumatic. Normocephalic. EYES: Pupils equal and round. No scleral icterus. No injection or drainage. Extraocular muscles intact ENT: No nasal bleeding or discharge. Mucous membranes pink and moist. Tongue is midline NECK: Trachea midline. No JVD. Supple CARDIOVASCULAR: Regular rate and rhythm. S1-S2 no S3 or S4 RESPIRATORY: No accessory muscle use. Clear to auscultation. Breath sounds equal bilaterally. GASTROINTESTINAL: Abdomen soft, non-tender, nondistended. Hepatic and splenic margins not palpable. MUSCULOSKELETAL: Extremities without clubbing, cyanosis, or edema. No obvious deformities. NEUROLOGICAL: Awake and alert. No obvious cranial nerve deficits. Motor grossly within normal limits. 4 out of 5 muscle strength in the arms and legs. Normal speech. PSYCHIATRIC: Appropriate mood and affect; insight and judgment normal. Procedures s/p Intramedullary nailing right subtrochanteric femur fracture s/p intubation/extubation post op Medications and IVs Current Medications Ondansetron HCl (Zofran Inj) 4 mg ONCE ONCE IVP Last administered on at 11:53; Start 06/26/17 at 11:00; Stop 06/26/17 at 11:01; Status DC Sodium Chloride (NS Flush) 2 ml UNSCH PRN IVF FLUSH AFTER USING IV ACCESS; Start 06/26/17 at 11:00; Stop 06/26/17 at 14:57; Status DC Hydromorphone HCl (Dilaudid Pf Inj) 0.5 mg ONCE ONCE IVS ; Start 06/26/17 at 11 :00; Stop 06/26/17 at 11:01; Status DC Hydromorphone HCl (Dilaudid Pf Inj) 0.5 mg ONCE ONCE IV Last administered on at 11:54; Start 06/26/17 at 11:45; Stop 06/26/17 at 11:46; Status DC Dextrose (D50w (Vial) Inj) 50 ml UNSCH PRN IV PUSH HYPOGLYCEMIA-SEE COMMENTS Last administered on 06/27/17at 02:38; Start 06/26/17 at 14:30; Stop 07/02/17 at 11:36; Status DC Glucagon (Glucagon Inj) 1 mg UNSCH PRN OTHER HYPOGLYCEMIA-SEE COMMENTS; Start 06/26/17 at 14:30; Stop 07/02/17 at 11:36; Status DC Insulin Aspart (NovoLOG SUPPLEMENTAL SCALE) 1 ACHS SLIDING SCALE SQ Last administered on 06/28/17at 12:30; Start 06/26/17 at 17:00; Stop 07/02/17 at 11:36 ; Status DC Clonidine (Catapres) 0.1 mg Q4H PRN PO SBP>160, DBP>90; Start 06/26/17 at 14:30 Clonidine (Catapres) 0.1 mg Q4H PRN PO SBP>160, DBP>90; Start 06/26/17 at 14:30 ; Status UNV Sodium Chloride (NS Flush) 2 ml UNSCH PRN IV FLUSH FLUSH AFTER USING IV ACCESS ; Start 06/26/17 at 14:30; Stop 06/28/17 at 11:20; Status DC Sodium Chloride (NS Flush) 2 ml BID IV FLUSH Last administered on 06/28/17at 10: 25; Start 06/26/17 at 21:00; Stop 06/28/17 at 11:20; Status DC Acetaminophen (Tylenol) 650 mg Q4H PRN PO TEMP > 100.4 Last administered on at 10:36; Start 06/26/17 at 14:30 Ondansetron HCl (Zofran Inj) 4 mg Q6H PRN IVP NAUSEA OR VOMITING; Start at 14:30 Metoclopramide HCl (Reglan Inj) 5 mg Q6H PRN IV PUSH NAUSEA OR VOMITING; Start 06/26/17 at 14:30 Acetaminophen (Tylenol) 650 mg Q6H PRN PO PAIN SCALE 1 TO 2; Start 06/26/17 at 14:30 Oxycodone/ Acetaminophen (Percocet 5-325 Mg) 1 tab Q6H PRN PO PAIN SCALE 3 TO 5 Last administered on 06/28/17at 02:40; Start 06/26/17 at 14:30; Stop 06/29/17 at 09:54; Status DC Oxycodone/ Acetaminophen (Percocet 10-325 Mg) 1 tab Q6H PRN PO PAIN SCALE 6 TO 10 Last administered on 06/26/17at 18:03; Start 06/26/17 at 14:30; Stop 06/29/17 at 09:54; Status DC Hydromorphone HCl (Dilaudid Pf Inj) 0.5 mg Q3H PRN IV PUSH Pain 3-5; if unable to take PO Last administered on 06/27/17at 17:01; Start 06/26/17 at 14:45; Stop 06/28/17 at 13:59; Status DC Hydromorphone HCl (Dilaudid Pf Inj) 1 mg Q3H PRN IV PUSH Pain 6-10;if unable to take PO; Start 06/26/17 at 14:45; Stop 06/28/17 at 13:59; Status DC Hydromorphone HCl (Dilaudid Pf Inj) 1 mg Q3H PRN IV PUSH BREAKTHROUGH PAIN; Start 06/26/17 at 15:00; Stop 06/28/17 at 13:59; Status DC Naloxone HCl (Narcan Inj) 0.4 mg UNSCH PRN IV PUSH SEE LABEL COMMENTS; Start at 14:30 Senna/Docusate Sodium (Francie-Colace) 1 tab BID PO Last administered on at 08:46; Start 06/26/17 at 21:00 Magnesium Hydroxide (Milk Of Magnesia Liq) 30 ml Q12H PRN PO Mild constipation ; Start 06/26/17 at 14:30 Sennosides (Senokot) 17.2 mg Q12H PRN PO Moderate constipation Last administered on 07/05/17at 17:53; Start 06/26/17 at 14:30 Bisacodyl (Dulcolax Supp) 10 mg DAILY PRN RECTAL SEVERE CONSITIPATION; Start at 14:30 Lactulose (Lactulose Liq) 30 ml DAILY PRN PO SEVERE CONSITIPATION; Start at 14:30 Pantoprazole Sodium (Protonix Inj) 40 mg Q24H IV PUSH Last administered on 07/08at 16:01; Start 06/26/17 at 16:00 Miscellaneous Information Patient in critical care unit? Ass... [id number] .XX Last administered on 06/27/17at 00:15; Start 06/27/17 at 00:15 Chlorhexidine Gluconate (Chlorhexidine 2% Cloth) 3 pack DAILY@04 TOPICAL Last administered on 06/30/17at 04:00; Start 06/27/17 at 04:00; Stop 07/01/17 at 04:01 ; Status DC Chlorhexidine Gluconate (Chlorhexidine 2% Cloth) 3 pack UNSCH PRN TOPICAL HYGIENIC CARE; Start 06/27/17 at 00:15; Stop 07/02/17 at 00:06; Status DC Furosemide (Lasix Inj) 20 mg ONCE ONCE IV PUSH Last administered on 06/27/17at 11:13; Start 06/27/17 at 10:00; Stop 06/27/17 at 10:01; Status DC Lactated Ringer's 1,000 ml @ 30 mls/hr Q24H PRN IV SEE LABEL COMMENTS Last administered on 06/28/17at 06:09; Start 06/28/17 at 04:45; Stop 06/28/17 at 21:12 ; Status DC Sodium Chloride 500 ml @ 30 mls/hr [id number] PRN IV SEE LABEL COMMENTS; Start at 04:45; Stop 07/01/17 at 04:44; Status DC Povidone Iodine (Betadine 5% Antisepsis Kit) 1 applic DEPARTMENTAL SHIPPING CLERK PRN EACH NARE SEE LABEL COMMENTS; Start 06/28/17 at 04:45; Stop 07/01/17 at 04:44; Status DC Chlorhexidine Gluconate (Chlorhexidine 2% Cloth) 3 pack DEPARTMENTAL SHIPPING CLERK PRN TOPICAL SEE LABEL COMMENTS; Start 06/28/17 at 04:45; Stop 07/01/17 at 04:44; Status DC Cefazolin Sodium/ Dextrose 50 ml @ As Directed STK-MED ONCE .ROUTE Last administered on 06/28/17at 08:23; Start 06/28/17 at 06:45; Stop 06/28/17 at 06:46 ; Status DC Bupivacaine HCl/ Epinephrine Bitart (Sensorcaine-Epinephrine 0.25% Inj) 50 ml STK-MED ONCE .ROUTE Last administered on 06/28/17at 09:00; Start 06/28/17 at 06: 45; Stop 06/28/17 at 06:46; Status DC Gentamicin Sulfate (Gentamicin Inj) 240 mg STK-MED ONCE .ROUTE Last administered on 06/28/17at 09:00; Start 06/28/17 at 06:45; Stop 06/28/17 at 06:46 ; Status DC Bupivacaine HCl/ Dextrose (Marcaine Spinal Inj) 2 ml STK-MED ONCE .ROUTE ; Start 06/28/17 at 07:52; Stop 06/28/17 at 07:53; Status DC Lidocaine HCl (Xylocaine-Mpf 1% Inj) 5 ml STK-MED ONCE .ROUTE ; Start 06/28/17 at 07:52; Stop 06/28/17 at 07:53; Status DC Propofol 0 ml @ As Directed STK-MED ONCE .ROUTE ; Start 06/28/17 at 07:52; Stop 06/28/17 at 07:53; Status DC Vancomycin HCl (Vancomycin Inj) 1,000 mg STK-MED ONCE .ROUTE Last administered on 06/28/17at 08:18; Start 06/28/17 at 08:07; Stop 06/28/17 at 08:08; Status DC Sodium Chloride (NS Flush) 2 ml UNSCH PRN IV FLUSH FLUSH AFTER USING IV ACCESS ; Start 06/28/17 at 10:15 Sodium Chloride (NS Flush) 2 ml BID IV FLUSH Last administered on 07/08/17at 22: 36; Start 06/28/17 at 21:00 Miscellaneous Information (Post-op Orders (for Pharmacy)) STAT ONCE XX ; Start 06/28/17 at 11:00; Stop 06/28/17 at 11:01; Status DC Cefazolin Sodium 1000 mg/Sodium Chloride 100 ml @ 200 mls/hr Q8H IV Last administered on 07/05/17at 09:36; Start 06/28/17 at 16:00; Stop 07/05/17 at 16:39 ; Status DC Albuterol Sulfate (*ALBUTEROL NEB PERIprocedure ONLY) 2.5 mg STK-MED ONCE NEB Last administered on 06/28/17at 10:42; Start 06/28/17 at 10:42; Stop 06/28/17 at 10:43; Status DC Hydromorphone HCl (Dilaudid Pf Inj) 0.5 mg STK-MED ONCE .ROUTE Last administered on 06/28/17at 10:50; Start 06/28/17 at 10:50; Stop 06/28/17 at 10:51 ; Status DC Miscellaneous Information ALL NURSING DEPARTME... UNSCH PRN .XX SEE LABEL COMMENTS; Start 06/28/17 at 11:30; Stop 06/29/17 at 11:29; Status DC Propofol 100 ml @ As Directed STK-MED ONCE .ROUTE ; Start 06/28/17 at 14:24; Stop 06/28/17 at 14:25; Status DC Propofol 100 ml @ 2.628 mls/ hr TITRATE PRN IV Sedation Last administered on at 02:33; Start 06/28/17 at 14:45; Stop 07/03/17 at 06:49; Status DC Midazolam HCl (Versed Inj) 2 mg STK-MED ONCE .ROUTE ; Start 06/28/17 at 14:41; Stop 06/28/17 at 14:42; Status DC Hydromorphone HCl (Dilaudid Pf Inj) 0.5 mg Q3H PRN IV PUSH pain 8-10 or not taking po Last administered on 07/01/17at 08:49; Start 06/28/17 at 21:15; Stop at 11:59; Status DC Dextrose/Sodium Chloride 1,000 ml @ 40 mls/hr Q24H IV Last administered on at 21:17; Start 06/28/17 at 21:15; Stop 06/29/17 at 08:47; Status DC Acetazolamide Sodium (Diamox Inj) 500 mg ONCE ONCE IV PUSH Last administered on 06/29/17at 09:24; Start 06/29/17 at 09:00; Stop 06/29/17 at 09:01; Status DC Furosemide (Lasix Inj) 40 mg ONCE ONCE IV PUSH Last administered on 06/29/17at 09:25; Start 06/29/17 at 09:00; Stop 06/29/17 at 09:01; Status DC Albumin Human 100 ml @ 60 mls/hr ONCE ONCE IV Last administered on 06/29/17at 09:33; Start 06/29/17 at 09:00; Stop 06/29/17 at 10:39; Status DC Budesonide (Pulmicort Respule Neb) 0.25 mg Q12HR NEB NEB Last administered on 07/07/17at 19:15; Start 06/29/17 at 09:00 Oxycodone HCl (Roxicodone Intensol Liq) 5 mg Q4H PRN PO pain 1-6 Last administered on 07/05/17at 13:03; Start 06/29/17 at 10:00 Furosemide (Lasix Inj) 40 mg BID@09,18 IV PUSH Last administered on 07/06/17at 17:11; Start 06/30/17 at 09:00; Stop 07/07/17 at 14:03; Status DC Potassium Chloride 100 ml @ 50 mls/hr Q2H PRN IV For Potassium 2.8 - 3.2 mEq/L ; Start 06/30/17 at 08:30; Stop 07/03/17 at 06:48; Status DC Potassium Chloride 100 ml @ 50 mls/hr Q2H PRN IV For Potassium 2.8 - 3.2 mEq/L ; Start 06/30/17 at 08:30; Stop 07/03/17 at 06:48; Status DC Potassium Bicarb/ Potassium Chloride (K-Lyte Cl Eff) 50 meq UNSCH PRN PO For Potassium 3.3 - 3.5 mEq/L; Start 06/30/17 at 08:30; Stop 07/03/17 at 06:48; Status DC Potassium Chloride 100 ml @ 25 mls/hr UNSCH PRN IV For Potassium 3.3 - 3.5 mEq /L; Start 06/30/17 at 08:30; Stop 07/03/17 at 06:48; Status DC Potassium Chloride 100 ml @ 50 mls/hr Q2H PRN IV For Potassium 3.3 - 3.5 mEq/L ; Start 06/30/17 at 08:30; Stop 07/03/17 at 06:48; Status DC Magnesium Sulfate 4 gm/Sodium Chloride 100 ml @ 50 mls/hr UNSCH PRN IV For Magnesium 0.9 - 1.1 mg/dL; Start 06/30/17 at 08:30; Stop 07/03/17 at 06:48; Status DC Magnesium Oxide (Mag-Ox) 800 mg UNSCH PRN PO For Magnesium 1.2 - 1.6 mg/dL; Start 06/30/17 at 08:30; Stop 07/03/17 at 06:48; Status DC Magnesium Sulfate 2 gm/Sodium Chloride 100 ml @ 50 mls/hr UNSCH PRN IV For Magnesium 1.2 - 1.6 mg/dL; Start 06/30/17 at 08:30; Stop 07/03/17 at 06:48; Status DC Potassium Phosphate (K-Phos) 2,000 mg Q4H PRN PO For Phosphorus < 2.5 mg/dL; Start 06/30/17 at 08:30; Stop 07/03/17 at 06:48; Status DC Sodium Phosphate 30 mmol/Sodium Chloride 250 ml @ 42 mls/hr UNSCH PRN IV For Phosphorus < 2.5 mg/dL; Start 06/30/17 at 08:30; Stop 07/03/17 at 06:48; Status DC Potassium Phosphate (K-Phos) 2,000 mg UNSCH PRN PO/TUBE SEE LABEL COMMENTS; Start 06/30/17 at 08:30; Stop 07/03/17 at 06:48; Status DC Potassium Phosphate 30 mmol/ Sodium Chloride 260 ml @ 42 mls/hr UNSCH PRN IV SEE LABEL COMMENTS Last administered on 06/30/17at 10:39; Start 06/30/17 at 08:30 ; Stop 07/03/17 at 06:48; Status DC Lidocaine HCl (Xylocaine-Mpf 1% Inj) 5 ml STK-MED ONCE OTHER ; Start 06/28/17 at 12:00; Stop 07/02/17 at 07:59; Status DC Phenylephrine HCl (Neosynephrine/ NS 1000 Mcg/10ml Syr) 2,000 mcg STK-MED ONCE IV ; Start 06/28/17 at 12:00; Stop 07/02/17 at 07:59; Status DC Ephedrine Sulfate (ePHEDrine/NS 25 MG/5 ML SYR) 50 mg STK-MED ONCE IV ; Start at 12:00; Stop 07/02/17 at 07:59; Status DC Propofol (Diprivan 200 Mg/20 ml Inj) 200 mg STK-MED ONCE IV ; Start 06/28/17 at 12:00; Stop 07/02/17 at 07:59; Status DC Rivaroxaban (Xarelto) 10 mg DAILY PO Last administered on 07/09/17at 09:00; Start 07/05/17 at 16:00 Hydromorphone HCl (Dilaudid Pf Inj) 0.5 mg Q3H PRN IV PUSH pain 8-10 or not taking po Last administered on 07/09/17at 09:27; Start 07/08/17 at 12:00 Urinary Catheter: Yes Assessment to: Continue Proctor insert reason: Obstruction/Retention A/P Problem List: (1) H/O gastric bypass ICD Code: Z98.84 - Bariatric surgery status (2) Hypertension ICD Code: I10 - Essential (primary) hypertension (3) Atrial fibrillation ICD Code: I48.91 - Unspecified atrial fibrillation (4) Closed right femoral fracture ICD Code: S72.91XA - Unspecified fracture of right femur, initial encounter for closed fracture Status: Acute (5) Hyperlipidemia ICD Code: E78.5 - Hyperlipidemia, unspecified Assessment and Plan 71-year-old male: Admitted for Right hip fracture s/p Intramedullary nailing right subtrochanteric femur fracture Orthopedics following, recommends partial weightbearing 50% of the right lower extremity, follow-up with Orth in 2 weeks. script for oxycodone written. DVT proph w Xarelto recommended by Dr. Barba, rehab consultant physician. d/c to rehab. of note: post op In PACU, he was persistently somnolent and ABG was drawn which demonstrates severe hyper cardiac respiratory failure with a primary respiratory acidosis and a pH of 7. He was emergently reintubated. He was transferred to the ICU intubated. Pt was later extubated. ECHO showed EF of 60- 65%, it was noted that pt had elevated pulm pressures. Pt was instructed to f/u w PCP in 1 weeks post discharge. Telemetry reviewed, V pacing. Okay to discontinue telemetry. Hypertension does not know his medication will make Catapres available Hyperlipidemia does not know his medications will try to obtain History of osteoarthritis and weakness will need physical therapy and occupational therapy after surgery Atrial fibrillation chronic and stable Chronic leg pain History of gastric bypass and cholecystectomy and AICD placement DVT prophylaxis with SCDs and ALFA hose GI prophylaxis with Pepcid Anemia we will monitor labs Coagulopathy will monitor Discharge Planning Await SNF place Problem Qualifiers (1) Closed right femoral fracture: Qualified Codes: S72.91XA - Unspecified fracture of right femur, initial encounter for closed fracture Michele Gilliam DO Jul 09, 2017 12:49
[2017-07-09] MEDS ORDERED: CLON.1 PO (12:52)
[2017-07-09] MEDS ORDERED: PERI PO (12:52)
[2017-07-09] MEDS ORDERED: PROT40TA PO (12:52)
[2017-07-09] MEDS ORDERED: BUDE.25I NEB (12:52)
--- NOTE | 2017-07-09 12:55 | HHI.DS ---
Discharge Summary Admission Date Jun 26, 2017 at 13:28 Discharge Date: Jul 09, 2017 Admitting Diagnosis Proximal right femur fracture (1) H/O gastric bypass ICD Code: Z98.84 - Bariatric surgery status Diagnosis: Secondary (2) Hypertension ICD Code: I10 - Essential (primary) hypertension Diagnosis: Secondary (3) Atrial fibrillation ICD Code: I48.91 - Unspecified atrial fibrillation Diagnosis: Secondary (4) Closed right femoral fracture ICD Code: S72.91XA - Unspecified fracture of right femur, initial encounter for closed fracture Diagnosis: Principal Status: Acute (5) Hyperlipidemia ICD Code: E78.5 - Hyperlipidemia, unspecified Diagnosis: Secondary Procedures s/p Intramedullary nailing right subtrochanteric femur fracture s/p intubation/extubation post op Brief History - From Admission Patient is a 71-year-old male who was initially brought to the emergency department from [place] in [facility] for a right hip pain. Patient was noted to be discharged from possibly a rehab center in [facility] where he spent 5 weeks due to leg weakness. Patient was going down the stairs earlier today when he fell off the landing and landed on his right hip. Complains of right hip pain and inability to ambulate. Has pain in the right hip that goes down the right leg to the right knee patient denied any issue of loss of consciousness or head injury during the fall. Denies any neck pain he denies any chest pain or any shortness of breath denies any abdominal pain patient states that he goes to [facility] but has not been there in a while. Patient states she has never been a [facility] ever patient does not know any of his medications does not have a medication list has some pain. Had been medicated by EMS prior to arrival She is a very poor historian CBC/BMP: 07/06/17 0413 07/06/17 0413 Imaging Last Impressions Abdomen X-Ray 06/29/17 0000 Signed Impressions: Service Date/Time: Thursday, June 29, 2017 14:02 - CONCLUSION: Weighted feeding tube extends well down into the stomach Claudio Lemus MD Femur X-Ray 06/28/17 0000 Signed Impressions: Service Date/Time: Wednesday, June 28, 2017 08:35 - CONCLUSION: Anatomic alignment. Michele Bella MD FACR Chest X-Ray 06/28/17 0000 Signed Impressions: Service Date/Time: Wednesday, June 28, 2017 14:34 - CONCLUSION: Satisfactory ET tube positioning. Worsening CHF Claudio Lemus MD Pelvis X-Ray 06/26/17 1046 Signed Impressions: Service Date/Time: June 11:12 - CONCLUSION: Acute oblique fracture the proximal femoral shaft on the right. Claudio Klein MD PE at Discharge GENERAL: Awake alert oriented 3 talkative and cooperative appears stated age SKIN: Warm and dry. HEAD: Atraumatic. Normocephalic. EYES: Pupils equal and round. No scleral icterus. No injection or drainage. Extraocular muscles intact ENT: No nasal bleeding or discharge. Mucous membranes pink and moist. Tongue is midline NECK: Trachea midline. No JVD. Supple CARDIOVASCULAR: Regular rate and rhythm. S1-S2 no S3 or S4 RESPIRATORY: No accessory muscle use. Clear to auscultation. Breath sounds equal bilaterally. GASTROINTESTINAL: Abdomen soft, non-tender, nondistended. Hepatic and splenic margins not palpable. MUSCULOSKELETAL: Extremities without clubbing, cyanosis, or edema. No obvious deformities. NEUROLOGICAL: Awake and alert. No obvious cranial nerve deficits. Motor grossly within normal limits. 4 out of 5 muscle strength in the arms and legs. Normal speech. PSYCHIATRIC: Appropriate mood and affect; insight and judgment normal. Hospital Course Patient is a 71-year-old male who was initially brought to the emergency department from [place] in [facility] for a right hip pain. Patient was noted to be discharged from possibly a rehab center in [facility] where he spent 5 weeks due to leg weakness. Patient was going down the stairs earlier today when he fell off the landing and landed on his right hip. Complains of right hip pain and inability to ambulate. Has pain in the right hip that goes down the right leg to the right knee patient denied any issue of loss of consciousness or head injury during the fall. Denies any neck pain he denies any chest pain or any shortness of breath denies any abdominal pain patient states that he goes to [facility] but has not been there in a while. Patient states she has never been a [facility] ever patient does not know any of his medications does not have a medication list has some pain. Had been medicated by EMS prior to arrival She is a very poor historian Has had surgical repair of the right leg Await SNF placement Has been cleared by All can be discharged to SNF when bed is available Restart novel anticoagulation at discharge for his chronic atrial fibrillation Pt Condition on Discharge: Stable Discharge Disposition: Discharge to SNF Discharge Time: > 30 minutes Discharge Instructions DIET: Follow Instructions for: Heart Healthy Diet Speech Therapy-Diet Recommends: Regular Activities you can perform: See Additionl Instruction Other Activity Instructions: Partial weightbearing 50% right lower extremity Follow up Referrals: Orthopedics - 2 Weeks @ [facility] with Natalia Sanchez MD PCP Follow-up - 1 Week New Medications: Docusate Sodium (Colace) 100 Mg Capsule 100 MG PO HS for Prevent Constipation, #30 CAP 0 Refills Oxycodone (Oxycodone) 5 Mg Tab 5 MG PO Q6HR for Pain Management, #30 TAB 0 Refills Pantoprazole (Protonix) 40 Mg Tab 40 MG PO DAILY for Reflux, #30 TAB 0 Refills Rivaroxaban (Xarelto) 10 Mg Tab 10 MG PO DAILY for Blood Clot Prevention, #21 TAB 0 Refills Budesonide Neb (Pulmicort Respules) 0.25 Mg/2 Ml Neb 0.25 MG NEB Q12HR NEB for Breathing Treatment, #60 AMPULE Clonidine (Catapres) 0.1 Mg Tab 0.1 MG PO Q4H PRN for SBP>160, DBP>90, #90 TAB Sennosides-Docusate Sodium (Gnp Senna Plus 8.6-50 mg) 8.6 Mg-50 Mg Tab 2 TAB PO BID for Bowel Management, #120 TAB Michele Gilliam DO Jul 09, 2017 12:55
[2017-07-09 16:00] VITALS: BP 110/54; PULSE 76; RESP 20; TEMP 97.7; O2SAT 98
[2017-07-09] MEDS: SODIUM CHLORIDE 0.9% FLUSH 10 ML FLUSH IV FLUSH SCH ×2 (18:48→20:18)
[2017-07-09 19:51] VITALS: BP 131/60; PULSE 74; RESP 18; TEMP 97.8; O2SAT 100
[2017-07-09] MEDS: PANTOPRAZOLE SODIUM 40 MG VIAL IV PUSH SCH (20:18)
[2017-07-10 00:54] VITALS: BP 107/52; PULSE 74; RESP 16; TEMP 97.1; O2SAT 92
[2017-07-10 08:00] VITALS: BP 112/56; PULSE 78; RESP 16; TEMP 97.4; O2SAT 98
[2017-07-10] MEDS: RIVAROXABAN 10 MG TAB PO SCH (08:19)
[2017-07-10] MEDS: SODIUM CHLORIDE 0.9% FLUSH 10 ML FLUSH IV FLUSH SCH (08:20)
[2017-07-10] MEDS: DOCUSATE SODIUM 50 MG/SENNA 8.6 MG TAB PO SCH (08:20)
[2017-07-10 08:34] VITALS: O2SAT 95
[2017-07-10] MEDS: RESP: BUDESONIDE 0.25 MG/2 ML NEB NEB SCH (08:34)
[2017-07-10 12:00] VITALS: BP 126/62; PULSE 71; RESP 16; TEMP 98.4; O2SAT 98
== END 2017-07-10 15:22 | DRG 480 ==
LOC: NEPE 10:08 → NEDA 13:28 → N06A 15:29 → HIMN 23:55 → N06A 06-27 21:38 → N03B 06-28 15:17 → N03A 06-28 17:32 → N06B 07-03 01:30
PROVIDERS: ADMIT Family Medicine; ATTEND Family Medicine
PROC: 5A09357 Assistance with Respiratory Ventilation, Less than 24 Consecutive Hours, Continuous Positive Airway Pressure (ICD-10-PCS; 2017-06-27)
PROC: 5A1945Z Respiratory Ventilation, 24-96 Consecutive Hours (ICD-10-PCS; 2017-06-28)
PROC: 30233N1 Transfusion of Nonautologous Red Blood Cells into Peripheral Vein, Percutaneous Approach (ICD-10-PCS; 2017-06-28)
PROC: 0BH17EZ Insertion of Endotracheal Airway into Trachea, Via Natural or Artificial Opening (ICD-10-PCS; 2017-06-28)
PROC: 0QS636Z Reposition Right Upper Femur with Intramedullary Internal Fixation Device, Percutaneous Approach (ICD-10-PCS; principal; 2017-06-28 07:59)
DX: S72.21XA Displaced subtrochanteric fracture of right femur, initial encounter for closed fracture (principal); J95.821 Acute postprocedural respiratory failure; G93.41 Metabolic encephalopathy; E87.2 Acidosis; D68.9 Coagulation defect, unspecified; I42.9 Cardiomyopathy, unspecified; J44.1 Chronic obstructive pulmonary disease with (acute) exacerbation; I11.0 Hypertensive heart disease with heart failure; I50.9 Heart failure, unspecified; I48.2 Chronic atrial fibrillation; E86.1 Hypovolemia; E78.5 Hyperlipidemia, unspecified; D64.9 Anemia, unspecified; W10.9XXA Fall (on) (from) unspecified stairs and steps, initial encounter; G89.29 Other chronic pain; M19.90 Unspecified osteoarthritis, unspecified site; M79.604 Pain in right leg; R06.01 Orthopnea; Z95.0 Presence of cardiac pacemaker; Z98.84 Bariatric surgery status; Z95.810 Presence of automatic (implantable) cardiac defibrillator; Z79.01 Long term (current) use of anticoagulants; Z75.1 Person awaiting admission to adequate facility elsewhere; Y92.009 Unspecified place in unspecified non-institutional (private) residence as the place of occurrence of the external cause
CPT/HCPCS: 31500; 36430; 36600; 71045; 72170; 73552; 74018; 76000; 80048; 80053; 82140; 82150; 82550; 82805; 82948; 83036; 83690; 83735; 83880; 84100; 84439; 84443; 84481; 84484; 85025; 85027; 85610; 85730; 86850; 86900; 86901; 86920; 87641; 93005; 93306; 94002; 94003; 94640; 94664; 96374; 96375; C1713; C9113; J0690; J1120; J1170; J1580; J1815; J1940; J2250; J2370; J2405; J3370; J7050; J7120; J7613; J7626; P9016; P9047